=== PATIENT | male | born 1955 | race Caucasian/White ===

== ENCOUNTER 2019-03-30 17:30 | Observation (INO) | payer MEDICARE ==
[2019-03-30] MEDS ORDERED: Sodium Chloride 0.9% 10 ML Syringe FLUSH PRN (17:40)
[2019-03-30 18:07] LABS: CHLORIDE,CL 99 mmol/L (98-107); SODIUM,NA 135 mmol/L (136-145)
--- NOTE | 2019-03-30 18:28 | EDM.PDOC ---
ED HPI GENERAL MEDICAL PROBLEM - General Chief Complaint: General Stated Complaint: dizziness, constipation Time Seen by Provider: 03/30/19 17:45 Source of Information: Reports: Patient, Family History Limitations: Reports: Altered Mental Status - History of Present Illness INITIAL COMMENTS - FREE TEXT/NARRATIVE: Patient is a 64-year-old who was brought to the ER by ex- secondary to significant weight loss in the last month increased confusion and just not feeling well was seen in [place] [facility] diagnosed with diverticulitis started on antibiotic and sent home patient now feels increased weakness with dizziness and confusion Onset: Sudden Duration: Week(s):, Getting Worse Quality: Reports: Ache Severity: Mild Improves with: Reports: None (`) Worsens with: Reports: Movement (Not eating well) Associated Symptoms: Reports: Confusion, Loss of Appetite, Nausea/Vomiting, Weakness Treatments LINES TENDER: Reports: Acetaminophen, NSAIDS - Related Data Allergies Allergy/AdvReac Type Severity Reaction Status Date / Time No Known Allergies Allergy Verified 03/30/19 17:42 Home Meds: Home Meds Acetaminophen [Tylenol Extra Strength] 3 tab PO 1200 PRN 03/30/19 [History] Albuterol/Ipratropium [DuoNeb 3.0-0.5 MG/3 ML] 3 ml INH DAILY 03/30/19 [History] Atenolol 50 mg PO DAILY 03/30/19 [History] Ciprofloxacin HCl [Cipro] 1 tab PO BID 03/30/19 [History] Finasteride 5 mg PO DAILY 03/30/19 [History] Fluticasone/Salmeterol [Advair 250-50 Diskus] 1 inh INH BID 03/30/19 [History] Ibuprofen 3 tab PO DAILY 03/30/19 [History] Lisinopril/Hydrochlorothiazide [Lisinopril-Hctz 20-25 mg Tab] 1 tab PO DAILY 09/07 [History] Tamsulosin HCl 1 cap PO BEDTIME 03/30/19 [History] atorvaSTATin [Lipitor] 1 tab PO BEDTIME 03/30/19 [History] metroNIDAZOLE [Flagyl] 1 tab PO TID 03/30/19 [History] Social & Family History - Tobacco Use Smoking Status *Q: Current Every Day Smoker Years of Tobacco use: 50 Packs/Tins Daily: 1.5 - Caffeine Use Caffeine Use: Reports: Coffee ED ROS GENERAL - Review of Systems Review Of Systems: See Below Constitutional: Reports: Chills, Weakness, Decreased Appetite, Weight Loss HEENT: Reports: No Symptoms Respiratory: Reports: Shortness of Breath Cardiovascular: Reports: Blood Pressure Problem (Hypertension) Endocrine: Reports: No Symptoms GI/Abdominal: Reports: Abdominal Pain, Constipation, Decreased Appetite, Distension Musculoskeletal: Reports: Back Pain Skin: Reports: No Symptoms Neurological: Reports: Confusion Hematologic/Lymphatic: Reports: No Symptoms Immunologic: Reports: No Symptoms ED EXAM, GENERAL - Physical Exam Exam: See Below Exam Limited By: Altered Mental Status (As per family) General Appearance: Alert, No Apparent Distress, Thin, Cachetic Ears: Normal External Exam, Normal Canal, Normal TMs, Hearing Loss Nose: Normal Inspection, Normal Mucosa, No Blood Throat/Mouth: Normal Inspection, Normal Lips, Normal Teeth, Normal Gums, Normal Oropharynx, Normal Voice, No Airway Compromise Head: Atraumatic, Normocephalic Neck: Normal Inspection, Supple, Non-Tender, Full Range of Motion Respiratory/Chest: Lungs Clear, Prolonged Expiration Cardiovascular: Normal Peripheral Pulses, Regular Rate, Rhythm, No Edema, No Gallop, No JVD, No Murmur, No Rub GI/Abdominal: Soft, Tender. No: Guarding, Rigid, Rebound (Male) Exam: Deferred Rectal (Males) Exam: Normal Exam, Normal Rectal Tone, Prostate Normal. No: Fecal Impaction, Heme + Stool, Hemorrhoids, Mass, Perirectal Abscess, Prostate Nodule, Rectal Fissure Back Exam: Normal Inspection, Full Range of Motion, NT Extremities: Normal Inspection, Normal Range of Motion, Non-Tender, Normal Capillary Refill, No Pedal Edema Course - Vital Signs Last Recorded V/S: Last Vital Signs Temp 98.5 F 03/31/19 08:00 Pulse 95 03/31/19 08:00 Resp 17 03/31/19 08:00 BP 128/68 03/31/19 08:00 Pulse Ox 95 03/31/19 08:00 - Orders/Labs/Meds Orders: Active Orders 24 hr Category Date Time Status Abdomen 1V Flat [CR] Stat Exams 03/30/19 20:55 Taken Abdomen 2V AP Flat Upright [CR] Stat Exams 03/30/19 17:57 Taken Abdomen Pelvis w Cont [CT] Stat Exams 03/30/19 18:01 Stop Req Sodium Chloride 0.9% [Saline Flush] Med 03/30/19 17:40 Active 10 ml FLUSH ASDIRECTED PRN Saline Lock Insert [OM.PC] Routine Oth 03/30/19 17:40 Ordered Medication Orders Albuterol/Ipratropium (Duoneb 3.0-0.5 Mg/3 Ml) 3 ml NEB DAILY [facility] Last Admin: 03/31/19 07:45 Dose: 3 ml Ciprofloxacin (Ciprofloxacin Hcl) 500 mg PO BID [facility] Last Admin: 03/31/19 07:44 Dose: 500 mg Sodium Chloride (Normal Saline) 1,000 mls @ 100 mls/hr IV ASDIRECTED [facility] Last Admin: 03/31/19 01:43 Dose: 100 mls/hr Metronidazole (Flagyl) 500 mg PO TID [facility] Last Admin: 03/31/19 07:44 Dose: 500 mg Sodium Chloride (Saline Flush) 10 ml FLUSH ASDIRECTED PRN PRN Reason: Keep Vein Open Last Admin: 03/30/19 18:55 Dose: 10 ml Labs: Laboratory Tests 03/30/19 03/30/19 03/30/19 Range/Units 17:50 17:52 17:52 WBC 13.5 H (4.0-10.2) K/uL RBC 4.14 L (4.33-5.41) M/uL Hgb 12.7 L (13.1-16.8) g/dL Hct 36.0 L (39.0-49.0) % MCV 87.0 (84.0-98.0) fL MCH 30.7 (28.2-33.3) pg MCHC 35.3 (31.7-36.0) g/dL RDW 12.1 (11.2-14.1) % Plt Count 382 H (150-350) K/uL Neut % (Auto) 70.3 (45.0-80.0) % Lymph % (Auto) 17.7 (10.0-50.0) % [place] % (Auto) 11.1 (2.0-14.0) % Eos % (Auto) 0.8 (0.0-5.0) % Baso % (Auto) 0.1 (0.0-2.0) % Neut # (Auto) 9.47 H (1.40-7.00) K/uL Lymph # (Auto) 2.38 (0.50-3.50) K/uL [place] # (Auto) 1.49 H (0.00-1.00) K/uL Eos # (Auto) 0.11 (0.00-0.50) K/uL Baso # (Auto) 0.02 (0.00-0.20) K/uL Sodium 135 L (136-145) mmol/L Potassium 2.4 L* (3.5-5.1) mmol/L Chloride 99 (98-107) mmol/L Carbon Dioxide 21.7 (21.0-32.0) mmol/L BUN 43 H (7-18) mg/dL Creatinine 1.56 H (0.51-1.17) mg/dL Est Cr Clr Drug Dosing TNP Estimated GFR (MDRD) 45 mL/min Glucose 165 H (74-106) mg/dL Calcium 8.7 (8.5-10.1) mg/dL Total Bilirubin 0.3 (0.2-1.0) mg/dL AST 28 (15-37) U/L ALT 37 (12-78) U/L Alkaline Phosphatase 53 (46-116) IU/L Total Protein 6.9 (6.4-8.2) g/dL Albumin 2.4 L (3.4-5.0) g/dL Amylase 50 (25-115) U/L Lipase 290 (73-393) U/L Meds: Medications Generic Name Dose Route Start Last Admin Trade Name Freq PRN Reason Stop Dose Admin Albuterol/Ipratropium 3 ml 03/31/19 08:00 03/31/19 07:45 Duoneb 3.0-0.5 Mg/3 Ml NEB 3 ml DAILY MIRIAM Administration Ciprofloxacin 500 mg 03/31/19 08:00 03/31/19 07:44 Ciprofloxacin Hcl PO 500 mg BID MIRIAM Administration Sodium Chloride 1,000 mls @ 100 mls/hr 03/31/19 01:00 03/31/19 01:43 Normal Saline IV 100 mls/hr ASDIRECTED MIRIAM Administration Metronidazole 500 mg 03/31/19 08:00 03/31/19 07:44 Flagyl PO 500 mg TID MIRIAM Administration Sodium Chloride 10 ml 03/30/19 17:40 03/30/19 18:55 Saline Flush FLUSH 10 ml ASDIRECTED PRN Administration Keep Vein Open Discontinued Medications Generic Name Dose Route Start Last Admin Trade Name Iveth PRN Reason Stop Dose Admin Potassium Chloride/Sodium Chloride 1,000 mls @ 250 mls/hr 03/30/19 18:45 09/07 18:49 Normal Saline With 20 Meq Kcl IV 250 mls/hr ASDIRECTED MIRIAM Administration Potassium Chloride 10 meq/ 50 mls @ 50 mls/hr 03/31/19 00:45 03/31/19 04:53 Premix IV 03/31/19 04:44 50 mls/hr Q1H MIRIAM Administration Iopamidol 100 ml 03/30/19 19:00 03/31/19 02:03 Isovue-300 (61%) IVPUSH 03/30/19 19:01 Not Given ONETIME ONE Potassium Chloride 20 meq 03/30/19 22:04 03/30/19 22:09 Potassium Chloride Solution PO 03/30/19 22:05 20 meq ONETIME ONE Administration Departure - Departure Time of Disposition: 21:30 Disposition: Refer to Observation Clinical Impression: Hypokalemia, Dehydration, Elevated glucose level, Abdominal pain, Diverticulitis - Discharge Information *PRESCRIPTION DRUG MONITORING PROGRAM REVIEWED*: Not Applicable *COPY OF PRESCRIPTION DRUG MONITORING REPORT IN PATIENT JOSSE: Not Applicable - Problem List & Annotations (1) Renal insufficiency SNOMED Code(s): 604300634, 849689598 Code(s): N28.9 - DISORDER OF KIDNEY AND URETER, UNSPECIFIED Status: Acute Current Visit: Yes Annotation/Comment:: elevated creatinine and hypokalemia will admit to correct fluids and electrolytes (2) Dehydration SNOMED Code(s): 00663242 Code(s): E86.0 - DEHYDRATION Status: Acute Current Visit: Yes Annotation/Comment:: Will admit and give fluids IV - Problem List Review Problem List Initiated/Reviewed/Updated: Yes - My Orders Last 24 Hours: My Active Orders 03/30/19 17:40 Sodium Chloride 0.9% [Saline Flush] 10 ml FLUSH ASDIRECTED PRN Saline Lock Insert [OM.PC] Routine 03/30/19 17:57 Abdomen 2V AP Flat Upright [CR] Stat 03/30/19 18:01 Abdomen Pelvis w Cont [CT] Stat 03/30/19 20:55 Abdomen 1V Flat [CR] Stat - Assessment/Plan Admission H&P: Please use this note as an admission H&P Last 24 Hours: My Active Orders 03/30/19 17:40 Sodium Chloride 0.9% [Saline Flush] 10 ml FLUSH ASDIRECTED PRN Saline Lock Insert [OM.PC] Routine 03/30/19 17:57 Abdomen 2V AP Flat Upright [CR] Stat 03/30/19 18:01 Abdomen Pelvis w Cont [CT] Stat 03/30/19 20:55 Abdomen 1V Flat [CR] Stat Plan: Will admit patient to observation to correct electrolytes and hydration. Patient is stable for general observation.
[2019-03-30] MEDS ORDERED: NS + KCl 20mEq/L 1,000 ML IV SCH (18:45)
[2019-03-30] MEDS ORDERED: Iopamidol 612 MG/ML 100 ML Bottle IVPUSH ONE (19:00)
[2019-03-30] MEDS ORDERED: Potassium Chloride 10% 20 MEQ/15 ML Soln 15 ML UD Cup PO ONE (22:04)
[2019-03-30 23:48] LABS: CHLORIDE,CL 102 mmol/L (98-107); SODIUM,NA 137 mmol/L (136-145)
[2019-03-31] MEDS ORDERED: Sodium Chloride 0.9% 1,000 ML IV SCH (01:00)
[2019-03-31] MEDS: Potassium Chloride 10 MEQ in Premix Bag 1 BAG IV SCH ×4 (01:43→04:53)
[2019-03-31] MEDS: metroNIDAZOLE 500 MG Tab PO SCH ×2 (07:44→11:43)
[2019-03-31] MEDS ORDERED: Albuterol/Ipratropium 3.0-0.5 MG/3 ML Neb Soln NEB SCH (08:00)
[2019-03-31] MEDS ORDERED: Ciprofloxacin 500 MG Tab PO SCH (08:00)
[2019-03-31 08:16] LABS: CHLORIDE,CL 106 mmol/L (98-107); SODIUM,NA 140 mmol/L (136-145)
--- NOTE | 2019-03-31 09:34 | PCM.PN ---
- General Info Date of Service: 03/31/19 - Review of Systems General: Reports: Weakness (improving ), Fatigue (improving) HEENT: Reports: No Symptoms Pulmonary: Reports: No Symptoms Cardiovascular: Reports: No Symptoms Gastrointestinal: Reports: Abdominal Pain (improving), Flatus (reports passing gas) Genitourinary: Reports: No Symptoms Musculoskeletal: Reports: No Symptoms Skin: Reports: No Symptoms Neurological: Reports: No Symptoms Psychiatric: Reports: No Symptoms - Patient Data Vitals - Most Recent: Last Vital Signs Temp 98.5 F 03/31/19 08:00 Pulse 95 03/31/19 08:00 Resp 17 03/31/19 08:00 BP 128/68 03/31/19 08:00 Pulse Ox 95 03/31/19 08:00 Weight - Most Recent: 150 lb I&O - Last 24 Hours: Intake & Output 03/30/19 03/31/19 03/31/19 22:59 06:59 14:59 Intake Total 1513 Output Total 300 Balance 1213 Lab Results Last 24 Hours: Laboratory Results - last 24 hr 03/30/19 03/30/19 03/30/19 Range/Units 17:50 17:52 17:52 WBC 13.5 H (4.0-10.2) K/uL RBC 4.14 L (4.33-5.41) M/uL Hgb 12.7 L (13.1-16.8) g/dL Hct 36.0 L (39.0-49.0) % MCV 87.0 (84.0-98.0) fL MCH 30.7 (28.2-33.3) pg MCHC 35.3 (31.7-36.0) g/dL RDW 12.1 (11.2-14.1) % Plt Count 382 H (150-350) K/uL Neut % (Auto) 70.3 (45.0-80.0) % Lymph % (Auto) 17.7 (10.0-50.0) % [place] % (Auto) 11.1 (2.0-14.0) % Eos % (Auto) 0.8 (0.0-5.0) % Baso % (Auto) 0.1 (0.0-2.0) % Neut # (Auto) 9.47 H (1.40-7.00) K/uL Lymph # (Auto) 2.38 (0.50-3.50) K/uL [place] # (Auto) 1.49 H (0.00-1.00) K/uL Eos # (Auto) 0.11 (0.00-0.50) K/uL Baso # (Auto) 0.02 (0.00-0.20) K/uL Sodium 135 L (136-145) mmol/L Potassium 2.4 L* (3.5-5.1) mmol/L Chloride 99 (98-107) mmol/L Carbon Dioxide 21.7 (21.0-32.0) mmol/L BUN 43 H (7-18) mg/dL Creatinine 1.56 H (0.51-1.17) mg/dL Est Cr Clr Drug Dosing TNP Estimated GFR (MDRD) 45 mL/min Glucose 165 H (74-106) mg/dL Calcium 8.7 (8.5-10.1) mg/dL Total Bilirubin 0.3 (0.2-1.0) mg/dL AST 28 (15-37) U/L ALT 37 (12-78) U/L Alkaline Phosphatase 53 (46-116) IU/L Total Protein 6.9 (6.4-8.2) g/dL Albumin 2.4 L (3.4-5.0) g/dL Amylase 50 (25-115) U/L Lipase 290 (73-393) U/L 03/30/19 03/31/19 03/31/19 Range/Units 23:30 07:10 07:10 WBC 9.5 (4.0-10.2) K/uL RBC 3.86 L (4.33-5.41) M/uL Hgb 11.8 L (13.1-16.8) g/dL Hct 34.0 L (39.0-49.0) % MCV 88.1 (84.0-98.0) fL MCH 30.6 (28.2-33.3) pg MCHC 34.7 (31.7-36.0) g/dL RDW 12.1 (11.2-14.1) % Plt Count 376 H (150-350) K/uL Neut % (Auto) 60.3 (45.0-80.0) % Lymph % (Auto) 26.5 (10.0-50.0) % [place] % (Auto) 11.9 (2.0-14.0) % Eos % (Auto) 1.1 (0.0-5.0) % Baso % (Auto) 0.2 (0.0-2.0) % Neut # (Auto) 5.75 (1.40-7.00) K/uL Lymph # (Auto) 2.52 (0.50-3.50) K/uL [place] # (Auto) 1.13 H (0.00-1.00) K/uL Eos # (Auto) 0.10 (0.00-0.50) K/uL Baso # (Auto) 0.02 (0.00-0.20) K/uL Sodium 137 140 (136-145) mmol/L Potassium 2.8 L* 3.0 L (3.5-5.1) mmol/L Chloride 102 106 (98-107) mmol/L Carbon Dioxide 21.2 21.3 (21.0-32.0) mmol/L BUN 35 H 25 H (7-18) mg/dL Creatinine 1.16 0.91 (0.51-1.17) mg/dL Est Cr Clr Drug Dosing 60.28 76.84 Estimated GFR (MDRD) > 60 > 60 mL/min Glucose 134 H 107 H (74-106) mg/dL Calcium 8.8 8.5 (8.5-10.1) mg/dL Total Bilirubin (0.2-1.0) mg/dL AST (15-37) U/L ALT (12-78) U/L Alkaline Phosphatase (46-116) IU/L Total Protein (6.4-8.2) g/dL Albumin (3.4-5.0) g/dL Amylase (25-115) U/L Lipase (73-393) U/L [place] Results Last 24 Hours: Microbiology 03/30/19 18:04 Occult Blood - Final Stool / Feces Med Orders - Current: Current Medications Albuterol/Ipratropium (Duoneb 3.0-0.5 Mg/3 Ml) 3 ml NEB DAILY [facility] Last Admin: 03/31/19 07:45 Dose: 3 ml Ciprofloxacin (Ciprofloxacin Hcl) 500 mg PO BID [facility] Last Admin: 03/31/19 07:44 Dose: 500 mg Sodium Chloride (Normal Saline) 1,000 mls @ 100 mls/hr IV ASDIRECTED [facility] Last Admin: 03/31/19 01:43 Dose: 100 mls/hr Metronidazole (Flagyl) 500 mg PO TID [facility] Last Admin: 03/31/19 07:44 Dose: 500 mg Sodium Chloride (Saline Flush) 10 ml FLUSH ASDIRECTED PRN PRN Reason: Keep Vein Open Last Admin: 03/30/19 18:55 Dose: 10 ml Discontinued Medications Potassium Chloride/Sodium Chloride (Normal Saline With 20 Meq Kcl) 1,000 mls @ 250 mls/hr IV ASDIRECTED [facility] Last Admin: 03/30/19 18:49 Dose: 250 mls/hr Potassium Chloride 10 meq/ (Premix) 50 mls @ 50 mls/hr IV Q1H [facility] Stop: 03/31/19 04:44 Last Admin: 03/31/19 04:53 Dose: 50 mls/hr Iopamidol (Isovue-300 (61%)) 100 ml IVPUSH ONETIME ONE Stop: 03/30/19 19:01 Last Admin: 03/31/19 02:03 Dose: Not Given Potassium Chloride (Potassium Chloride Solution) 20 meq PO ONETIME ONE Stop: 03/30/19 22:05 Last Admin: 03/30/19 22:09 Dose: 20 meq - Exam General: Alert, Oriented HEENT: Pupils Equal, Pupils Reactive, EOMI, Mucous Membr. Moist/Connell Neck: Supple Lungs: Clear to Auscultation, Normal Respiratory Effort Cardiovascular: Regular Rate, Regular Rhythm GI/Abdominal Exam: Normal Bowel Sounds, Soft, Non-Tender, No Organomegaly, No Distention, No Abnormal Bruit, No Mass, Pelvis Stable (Male) Exam: Deferred Back Exam: Normal Inspection, Full Range of Motion Extremities: Normal Inspection, Normal Range of Motion, Non-Tender, No Pedal Edema, Normal Capillary Refill Skin: Warm, Dry, Intact Neurological: No New Focal Deficit Psy/Mental Status: Alert, Normal Affect, Normal Mood - Problem List & Annotations (1) Renal insufficiency SNOMED Code(s): 098458436, 566250426 Code(s): N28.9 - DISORDER OF KIDNEY AND URETER, UNSPECIFIED Status: Acute Current Visit: Yes Annotation/Comment:: Continue correction of electrolytes. Will continue to monitor. (2) Dehydration SNOMED Code(s): 23290344 Code(s): E86.0 - DEHYDRATION Status: Acute Current Visit: Yes Annotation/Comment:: Will admit and give fluids IV (3) Diverticulitis SNOMED Code(s): 861866532 Code(s): K57.92 - DVTRCLI OF INTEST, PART UNSP, W/O PERF OR ABSCESS W/O BLEED Status: Acute Current Visit: Yes Annotation/Comment:: continue antibiotics. (4) Elevated glucose level SNOMED Code(s): 44659491 Code(s): R73.09 - OTHER ABNORMAL GLUCOSE Status: Acute Current Visit: Yes (5) Hypokalemia SNOMED Code(s): 22391600 Code(s): E87.6 - HYPOKALEMIA Status: Acute Current Visit: Yes Annotation/Comment:: will continue to correct. - Problem List Review Problem List Initiated/Reviewed/Updated: Yes - My Orders Last 24 Hours: My Active Orders 03/30/19 17:40 Sodium Chloride 0.9% [Saline Flush] 10 ml FLUSH ASDIRECTED PRN Saline Lock Insert [OM.PC] Routine 03/30/19 17:57 Abdomen 2V AP Flat Upright [CR] Stat 03/30/19 18:01 Abdomen Pelvis w Cont [CT] Stat 03/30/19 20:55 Abdomen 1V Flat [CR] Stat 03/30/19 21:30 Patient Status [ADT] Routine 03/31/19 00:53 Vital Signs [RC] Q4HR 03/31/19 01:00 Sodium Chloride 0.9% [Normal Saline] 1,000 ml IV ASDIRECTED 03/31/19 01:10 Resuscitation Status Routine 03/31/19 01:22 Activity as Tolerated [RC] .Routine 03/31/19 01:28 RT Aerosol Therapy [RC] ASDIRECTED 03/31/19 08:00 Albuterol/Ipratropium [DuoNeb 3.0-0.5 MG/3 ML] 3 ml NEB DAILY Ciprofloxacin [Ciprofloxacin HCl] 500 mg PO BID metroNIDAZOLE [Flagyl] 500 mg PO TID 03/31/19 Breakfast Nothing per Oral Now Diet [DIET] - Plan Plan:: continue electrolyte replacement and dehydration correction. Will continue antibiotics. Patient reporting improvement.
--- OUTSIDE RECORDS SUMMARY | 2019-03-31 09:36 | XMSREPORT | Referral Summary ---
:1955 Author Organization [facility] Address [address] [place] [address] Care Team Providers Name Role Phone Tamia Saleh PA-C Attributed Provider Tamia Saleh PA-C Primary Care Provider Reason for Referral Transitions of Care (Routine) Status Reason Specialty Diagnoses / Referred By Referred To Procedures Contact Contact New Request Patient Diagnoses History of diverticulitis Screen for colon cancer Change in bowel habits Tamia Saleh, Health, [facility] [employer] [facility] [place], [address] [place] [phone] Phone: Fax: Encounter Details Date Type Department Care Team Description 03/26/[address] [facility] [address] [place] [address] [place] [address] [phone] Allergies No Known Allergiesdocumented as of this encounter (statuses as of 03/29/2019) Medications Medication Sig Dispensed Refills Start Date End Date Status atenolol (TENORMIN) Take 1 tablet (50 90 tablet 3 07/22/2018 Active 50 mg mg) by mouth 1 tabletIndications: time per day Essential hypertension fluticasone-salmeter Inhale 1 puff 3 Inhaler 3 07/22/2018 07/27/2019 Active ol (ADVAIR DISKUS) orally 2 times a 250-50 mcg/dose day Rinse mouth discusIndications: after use. Simple chronic bronchitis (HCC) indomethacin Take one capsule 30 capsule 0 07/22/2018 Active (INDOCIN) 50 mg up to three times capsuleIndications: daily with food H/O acute gouty for gout flare up. arthritis Decrease dose as pain subsides. lisinopril-hydroCHLO Take 1 tablet by 90 tablet 3 07/22/2018 Active ROthiazide mouth 1 time per (PRINZIDE, day ZESTORETIC) 20-25 mg tabletIndications: Essential hypertension tamsulosin (FLOMAX) Take 1 capsule 90 capsule 3 07/22/2018 Active 0.4 mg (0.4 mg) by mouth capsuleIndications: every night at Benign prostatic bedtime hyperplasia with urinary obstruction albuterol-ipratropiu INHALE 1 UNIT-DOSE 180 mL 1 01/12/2019 04/12/2019 Active m (DUO-NEB) 2.5-0.5 (3 ML) BY mg/3 mL inhalation NEBULIZATION EVERY solutionIndications: 12 HOURS NEEDED Chronic obstructive FOR BRONCHOSPASM, pulmonary disease, SHORTNESS OF unspecified COPD BREATH OR WHEEZING type (HCC) rosuvastatin Take 10 mg by 0 Active (CRESTOR) 10 mg mouth every night tablet at bedtime ibuprofen Take 600 mg by 0 Active (ADVIL;MOTRIN-IB) mouth Every 4 200 mg tablet hours as needed finasteride TAKE 1 TABLET (5 90 tablet 2 03/17/2019 Active (PROSCAR) 5 MG MG) BY MOUTH 1 tabletIndications: TIME PER DAY Benign prostatic hyperplasia with urinary obstruction metroNIDAZOLE Take 1 tablet (500 30 tablet 0 03/24/2019 Active (FLAGYL) 500 mg mg) by mouth 3 tabletIndications: times a day Acute diverticulitis of intestine ciprofloxacin Take 1 tablet (500 20 tablet 0 03/24/2019 Active (CIPRO) 500 mg mg) by mouth 2 tabletIndications: times a day Acute diverticulitis of intestine oxyCODONE (OXY-IR) 5 Take 1 tablet (5 12 tablet 0 03/24/2019 Active mg tablet (immediate mg) by mouth every release)Indications: 6 hours as needed Acute diverticulitis for severe pain of intestine ondansetron (ZOFRAN Take 1 tablet (4 8 tablet 0 03/24/2019 Active ODT) 4 mg mg) by mouth Every dispersible 4 hours as needed tabletIndications: for nausea or Acute diverticulitis vomiting of intestine documented as of this encounter (statuses as of 03/29/2019) Active Problems Problem Noted Date Impaired fasting glucose 07/21/2018 Excessive drinking of alcohol 07/21/2018 Cigarette smoker 07/21/2018 BPH (benign prostatic hyperplasia) 07/07/2015 Idiopathic gout of multiple sites 10/01/2014 COPD (chronic obstructive pulmonary disease) 02/20/2007 Tobacco use disorder 02/20/2007 Pure hypercholesterolemia 07/21/2003 Essential hypertension 07/21/2003 documented as of this encounter (statuses as of 03/29/2019) Resolved Problems Problem Noted Date Resolved Date Bact Pleur/Effus not TB 02/20/2007 10/01/2014 documented as of this encounter (statuses as of 03/29/2019) Immunizations Name Dates Previously Given Next Due FLU VACCINE HIGH DOSE 65YR+ 07/21/2018 Pneumococcal Conj PCV13 07/21/2018 documented as of this encounter Social History Tobacco Use Types Packs/Day Years Used Date Current Every Day Smoker Cigarettes 2 Smokeless Tobacco: Never Used Alcohol Use Drinks/Week oz/Week Comments Yes 20 Cans of beer 12.0 Sex Assigned at Date Recorded Not on file Job Start Date Occupation Industry Not on file Not on file Not on file Travel History Travel Start Travel End No recent travel history available. documented as of this encounter Functional Status Functional Status Response Date of Assessment Is the person deaf or does he/she have serious difficulty No 02/22/2019 hearing? Is this person blind or does he/she have difficulty No 02/22/2019 seeing even when wearing glasses? Do you have difficulty with walking, balance, climbing No 02/22/2019 stairs, or had a fall in the last 3 months? documented as of this encounter Plan of Treatment Date Type Specialty Care Team Description 03/31/2019 Office Visit Family Practice Tamia Saleh, PAHarinder [address] [place] [id number] 04/12/2019 Office Visit Orthopedics Rafiq Peace MD [address] [place] [address] [phone] Name Priority Associated Diagnoses Order Schedule CLINIC REFERRAL ENDOSCOPY Routine History of diverticulitis Ordered: 03/29/2019 NON ONE CHART Screen for colon cancer Change in bowel habits documented as of this encounter Implants Implanted Type Area Bowling Ball Grader And Marker Device Shelf Model / Identifier Expiration Date Serial / Lot Wrist Taper Post 7.5x16mm N [id number] Ea1 - Sn/A Right: ARTHROSURFACE 06/04/2023 [id number] / Implanted: Qty: 1 on 03/01/2019 by Rafiq Peace MD WRIST N/A / [id number] Wrist Capitate 15mm [id number] N [id number] Ea1 - Sn/A Right: ARTHROSURFACE 06/08/2023 [id number] / Implanted: Qty: 1 on 03/01/2019 by aRfiq Peace MD WRIST N/A / [id number] documented as of this encounter Visit Diagnoses Diagnosis History of diverticulitis - Primary Screen for colon cancer Special screening for malignant neoplasms, colon Change in bowel habits Other symptoms involving digestive system documented in this encounter
[2019-03-31] MEDS ORDERED: Potassium Chloride 20 MEQ Tab.ER PO SCH (10:00)
[2019-03-31 16:04] VITALS: BP 148/75
[2019-03-31 16:39] LABS: CHLORIDE,CL 106 mmol/L (98-107); SODIUM,NA 141 mmol/L (136-145)
[2019-03-31] MEDS ORDERED: Potassium Chloride 20 MEQ Tab.ER PO ONE (17:11)
--- NOTE | 2019-03-31 17:26 | PCM.DCSUM1 ---
Discharge Summary - Hospital Course Diagnosis: Stroke: No - Discharge Data Discharge Date: 03/31/19 Discharge Disposition: Home, Self-Care 01 Condition: Good - Discharge Diagnosis/Problem(s) (1) Renal insufficiency SNOMED Code(s): 852675705, 028452092 ICD Code: N28.9 - DISORDER OF KIDNEY AND URETER, UNSPECIFIED Status: Acute Current Visit: Yes Problem Details: Patient feeling much better less confused appears hydrated but still hypokalemic we checked his potassium 2.7 now I will send him home KCl 20 mEq 4 times a day he is to have a recheck of his potassium on Friday. Reports to information technology architect provider (2) Dehydration SNOMED Code(s): 58438032 ICD Code: E86.0 - DEHYDRATION Status: Acute Current Visit: Yes Problem Details: Patient rehydrated IV disconnected (3) Diverticulitis SNOMED Code(s): 279715274 ICD Code: K57.92 - DVTRCLI OF INTEST, PART UNSP, W/O PERF OR ABSCESS W/O BLEED Status: Acute Current Visit: Yes Problem Details: Patient is to continue antibiotics till finished wBC within normal limits (4) Elevated glucose level SNOMED Code(s): 63916002 ICD Code: R73.09 - OTHER ABNORMAL GLUCOSE Status: Acute Current Visit: Yes (5) Hypokalemia SNOMED Code(s): 09244743 ICD Code: E87.6 - HYPOKALEMIA Status: Acute Current Visit: Yes Problem Details: will continue to correct. - Discharge Plan *PRESCRIPTION DRUG MONITORING PROGRAM REVIEWED*: Not Applicable *COPY OF PRESCRIPTION DRUG MONITORING REPORT IN PATIENT JOSSE: Not Applicable Prescriptions/Med Rec: Potassium Chloride 40 meq PO QID 30 Days #120 tablet.er Home Medications: Home Meds Acetaminophen [Tylenol Extra Strength] 3 tab PO 1200 PRN 03/30/19 [History] Albuterol/Ipratropium [DuoNeb 3.0-0.5 MG/3 ML] 3 ml INH DAILY 03/30/19 [History] Atenolol 50 mg PO DAILY 03/30/19 [History] Ciprofloxacin HCl [Cipro] 1 tab PO BID 03/30/19 [History] Finasteride 5 mg PO DAILY 03/30/19 [History] Fluticasone/Salmeterol [Advair 250-50 Diskus] 1 inh INH BID 03/30/19 [History] Ibuprofen 3 tab PO DAILY 03/30/19 [History] Lisinopril/Hydrochlorothiazide [Lisinopril-Hctz 20-25 mg Tab] 1 tab PO DAILY 09/07 [History] Tamsulosin HCl 1 cap PO BEDTIME 03/30/19 [History] atorvaSTATin [Lipitor] 1 tab PO BEDTIME 03/30/19 [History] metroNIDAZOLE [Flagyl] 1 tab PO TID 03/30/19 [History] Potassium Chloride 40 meq PO QID 30 Days #120 tablet.er 03/31/19 [Rx] Patient Handouts: Hypokalemia, Dehydration, Adult, [id number] Forms: ED Department Discharge Referrals: Tamia Saleh PA-C [Primary Care Provider] - - Discharge Summary/Plan Comment DC Time >30 min.: No - General Info Functional Status: Reports: Tolerating Diet, Ambulating - Review of Systems General: Reports: No Symptoms HEENT: Reports: No Symptoms Pulmonary: Reports: Shortness of Breath Cardiovascular: Reports: No Symptoms Gastrointestinal: Reports: No Symptoms, Diarrhea, Nausea Genitourinary: Reports: No Symptoms Musculoskeletal: Reports: No Symptoms Skin: Reports: No Symptoms Neurological: Reports: No Symptoms Psychiatric: Reports: No Symptoms - Patient Data Vitals - Most Recent: Last Vital Signs Temp 98.1 F 03/31/19 16:00 Pulse 101 H 03/31/19 16:00 Resp 17 03/31/19 16:00 BP 148/75 H 03/31/19 16:00 Pulse Ox 95 03/31/19 16:00 Weight - Most Recent: 150 lb I&O - Last 24 hours: Intake & Output 03/31/19 03/31/19 03/31/19 06:59 14:59 22:59 Intake Total 1513 1627 Output Total 300 500 Balance 1213 1127 Lab Results - Last 24 hrs: Laboratory Results - last 24 hr 03/30/19 03/30/19 03/30/19 Range/Units 17:50 17:52 17:52 WBC 13.5 H (4.0-10.2) K/uL RBC 4.14 L (4.33-5.41) M/uL Hgb 12.7 L (13.1-16.8) g/dL Hct 36.0 L (39.0-49.0) % MCV 87.0 (84.0-98.0) fL MCH 30.7 (28.2-33.3) pg MCHC 35.3 (31.7-36.0) g/dL RDW 12.1 (11.2-14.1) % Plt Count 382 H (150-350) K/uL Neut % (Auto) 70.3 (45.0-80.0) % Lymph % (Auto) 17.7 (10.0-50.0) % [place] % (Auto) 11.1 (2.0-14.0) % Eos % (Auto) 0.8 (0.0-5.0) % Baso % (Auto) 0.1 (0.0-2.0) % Neut # (Auto) 9.47 H (1.40-7.00) K/uL Lymph # (Auto) 2.38 (0.50-3.50) K/uL [place] # (Auto) 1.49 H (0.00-1.00) K/uL Eos # (Auto) 0.11 (0.00-0.50) K/uL Baso # (Auto) 0.02 (0.00-0.20) K/uL Sodium 135 L (136-145) mmol/L Potassium 2.4 L* (3.5-5.1) mmol/L Chloride 99 (98-107) mmol/L Carbon Dioxide 21.7 (21.0-32.0) mmol/L BUN 43 H (7-18) mg/dL Creatinine 1.56 H (0.51-1.17) mg/dL Est Cr Clr Drug Dosing TNP Estimated GFR (MDRD) 45 mL/min Glucose 165 H (74-106) mg/dL Calcium 8.7 (8.5-10.1) mg/dL Total Bilirubin 0.3 (0.2-1.0) mg/dL AST 28 (15-37) U/L ALT 37 (12-78) U/L Alkaline Phosphatase 53 (46-116) IU/L Total Protein 6.9 (6.4-8.2) g/dL Albumin 2.4 L (3.4-5.0) g/dL Amylase 50 (25-115) U/L Lipase 290 (73-393) U/L 03/30/19 03/31/19 03/31/19 Range/Units 23:30 07:10 07:10 WBC 9.5 (4.0-10.2) K/uL RBC 3.86 L (4.33-5.41) M/uL Hgb 11.8 L (13.1-16.8) g/dL Hct 34.0 L (39.0-49.0) % MCV 88.1 (84.0-98.0) fL MCH 30.6 (28.2-33.3) pg MCHC 34.7 (31.7-36.0) g/dL RDW 12.1 (11.2-14.1) % Plt Count 376 H (150-350) K/uL Neut % (Auto) 60.3 (45.0-80.0) % Lymph % (Auto) 26.5 (10.0-50.0) % [place] % (Auto) 11.9 (2.0-14.0) % Eos % (Auto) 1.1 (0.0-5.0) % Baso % (Auto) 0.2 (0.0-2.0) % Neut # (Auto) 5.75 (1.40-7.00) K/uL Lymph # (Auto) 2.52 (0.50-3.50) K/uL [place] # (Auto) 1.13 H (0.00-1.00) K/uL Eos # (Auto) 0.10 (0.00-0.50) K/uL Baso # (Auto) 0.02 (0.00-0.20) K/uL Sodium 137 140 (136-145) mmol/L Potassium 2.8 L* 3.0 L (3.5-5.1) mmol/L Chloride 102 106 (98-107) mmol/L Carbon Dioxide 21.2 21.3 (21.0-32.0) mmol/L BUN 35 H 25 H (7-18) mg/dL Creatinine 1.16 0.91 (0.51-1.17) mg/dL Est Cr Clr Drug Dosing 60.28 76.84 Estimated GFR (MDRD) > 60 > 60 mL/min Glucose 134 H 107 H (74-106) mg/dL Calcium 8.8 8.5 (8.5-10.1) mg/dL Total Bilirubin (0.2-1.0) mg/dL AST (15-37) U/L ALT (12-78) U/L Alkaline Phosphatase (46-116) IU/L Total Protein (6.4-8.2) g/dL Albumin (3.4-5.0) g/dL Amylase (25-115) U/L Lipase (73-393) U/L 03/31/19 Range/Units 16:15 WBC (4.0-10.2) K/uL RBC (4.33-5.41) M/uL Hgb (13.1-16.8) g/dL Hct (39.0-49.0) % MCV (84.0-98.0) fL MCH (28.2-33.3) pg MCHC (31.7-36.0) g/dL RDW (11.2-14.1) % Plt Count (150-350) K/uL Neut % (Auto) (45.0-80.0) % Lymph % (Auto) (10.0-50.0) % [place] % (Auto) (2.0-14.0) % Eos % (Auto) (0.0-5.0) % Baso % (Auto) (0.0-2.0) % Neut # (Auto) (1.40-7.00) K/uL Lymph # (Auto) (0.50-3.50) K/uL [place] # (Auto) (0.00-1.00) K/uL Eos # (Auto) (0.00-0.50) K/uL Baso # (Auto) (0.00-0.20) K/uL Sodium 141 (136-145) mmol/L Potassium 2.7 L* (3.5-5.1) mmol/L Chloride 106 (98-107) mmol/L Carbon Dioxide 21.0 (21.0-32.0) mmol/L BUN 18 (7-18) mg/dL Creatinine 0.79 (0.51-1.17) mg/dL Est Cr Clr Drug Dosing 88.52 Estimated GFR (MDRD) > 60 mL/min Glucose 102 (74-106) mg/dL Calcium 8.4 L (8.5-10.1) mg/dL Total Bilirubin (0.2-1.0) mg/dL AST (15-37) U/L ALT (12-78) U/L Alkaline Phosphatase (46-116) IU/L Total Protein (6.4-8.2) g/dL Albumin (3.4-5.0) g/dL Amylase (25-115) U/L Lipase (73-393) U/L [place] Results - Last 24 hrs: Microbiology 03/30/19 18:04 Occult Blood - Final Stool / Feces Med Orders - Current: Current Medications Albuterol/Ipratropium (Duoneb 3.0-0.5 Mg/3 Ml) 3 ml NEB DAILY [facility] Last Admin: 03/31/19 07:45 Dose: 3 ml Ciprofloxacin (Ciprofloxacin Hcl) 500 mg PO BID [facility] Last Admin: 03/31/19 07:44 Dose: 500 mg Metronidazole (Flagyl) 500 mg PO TID [facility] Last Admin: 03/31/19 11:43 Dose: 500 mg Potassium Chloride (Klor-Con M20) 20 meq PO BID [facility] Last Admin: 03/31/19 10:09 Dose: 20 meq Sodium Chloride (Saline Flush) 10 ml FLUSH ASDIRECTED PRN PRN Reason: Keep Vein Open Last Admin: 03/30/19 18:55 Dose: 10 ml Discontinued Medications Potassium Chloride/Sodium Chloride (Normal Saline With 20 Meq Kcl) 1,000 mls @ 250 mls/hr IV ASDIRECTED [facility] Last Admin: 03/30/19 18:49 Dose: 250 mls/hr Potassium Chloride 10 meq/ (Premix) 50 mls @ 50 mls/hr IV Q1H [facility]IR[facility] Stop: 03/31/19 04:44 Last Admin: 03/31/19 04:53 Dose: 50 mls/hr Sodium Chloride (Normal Saline) 1,000 mls @ 100 mls/hr IV ASDIRECTED [facility] Last Infusion: 03/31/19 12:45 Dose: Infused Iopamidol (Isovue-300 (61%)) 100 ml IVPUSH ONETIME ONE Stop: 03/30/19 19:01 Last Admin: 03/31/19 02:03 Dose: Not Given Potassium Chloride (Potassium Chloride Solution) 20 meq PO ONETIME ONE Stop: 03/30/19 22:05 Last Admin: 03/30/19 22:09 Dose: 20 meq Potassium Chloride (Klor-Con M20) 40 meq PO ONETIME ONE Stop: 03/31/19 17:12 - Exam General: Reports: Alert, Oriented HEENT: Reports: Pupils Equal, Pupils Reactive, EOMI, Mucous Membr. Moist/[place] Neck: Reports: Supple Lungs: Reports: Clear to Auscultation, Normal Respiratory Effort Cardiovascular: Reports: Regular Rate, Regular Rhythm GI/Abdominal Exam: Normal Bowel Sounds, Soft, Non-Tender, No Organomegaly, No Distention, No Abnormal Bruit, No Mass, Pelvis Stable (Male) Exam: No Hernia, Normal Inspection, Normal Prostate, Circumcised Rectal (Males) Exam: Normal Exam, Normal Rectal Tone, Prostate Normal Back Exam: Reports: Normal Inspection, Full Range of Motion Extremities: Normal Inspection, Normal Range of Motion, Non-Tender, No Pedal Edema, Normal Capillary Refill Skin: Reports: Warm, Dry, Intact
== END 2019-03-31 18:20 | disposition home or self-care (01) ==
LOC: LL.ED 17:30 → LL.MS 21:30 → UNDOADMOB 21:30
PROVIDERS: ADMIT Family Medicine; ATTEND Family Medicine
DX: E86.0 Dehydration (principal); N28.9 Disorder of kidney and ureter, unspecified; K57.92 Diverticulitis of intestine, part unspecified, without perforation or abscess without bleeding; R73.09 Other abnormal glucose; E87.6 Hypokalemia; F17.210 Nicotine dependence, cigarettes, uncomplicated
CPT/HCPCS: 36000; 36415; 74018; 74019; 80048; 80053; 82150; 82270; 83690; 85025; 94640; 96360; 99285-25; A4217; A9270-GY; J3480; J7030; J7620-GY

== ENCOUNTER 2021-01-10 10:24 | Inpatient (IN) | payer MEDICARE, OTHER ==
--- NOTE | 2021-01-10 15:20 | PCM.HP.2 ---
H&P History of Present Illness - General Date of Service: 01/10/21 Admit Problem/Dx: Swingbed admission s/p left elbow fracture and pelvis fracture. Source of Information: Patient, Old Records History Limitations: Reports: No Limitations - History of Present Illness Initial Comments - Free Text/Narative: Patient admitted for PT/OT and assistance with ADLs after sustaining right superior/inferior pubic ramus fractures/possible left inferior pubic ramus fracture and intra-articular fracture of left olecranon. Left elbow underwent surgical fixation/pinning at [facility]. Injury sustained due to tripping on a leash laying on ground and falling onto concrete driveway. - Related Data Allergies/Adverse Reactions: Allergies Allergy/AdvReac Type Severity Reaction Status Date / Time atorvastatin Allergy Muscle Verified 01/10/21 10:43 Aches Home Medications: Home Meds Acetaminophen [Tylenol Extra Strength] 1,000 mg PO TID@,,03/30/19 [History] Finasteride 5 mg PO DAILY 03/30/19 [History] Fluticasone Propion/Salmeterol [Advair 250-50 Diskus] 1 inh INH Q12HR 03/30/19 [History] Lisinopril/Hydrochlorothiazide [Lisinopril-Hctz 20-25 mg Tab] 1 tab PO DAILY 03/30/19 [History] atenoloL [Atenolol] 50 mg PO DAILY 03/30/19 [History] Albuterol/Ipratropium [DuoNeb 3.0-0.5 MG/3 ML] 3 ml NEB Q12HR PRN 01/10/21 [History] Celecoxib [CeleBREX] 200 mg PO DAILY 01/10/21 [History] Cholecalciferol (Vitamin D3) [Vitamin D3] 2,000 unit PO DAILY 01/10/21 [History] Cyclobenzaprine [Flexeril] 10 mg PO TID@,,01/10/21 [History] Gabapentin [Neurontin] 300 mg PO Q12HR 01/10/21 [History] Rosuvastatin [Crestor] 10 mg PO BEDTIME 01/10/21 [History] Sennosides/Docusate Sodium [Senna-Docusate Sodium Tablet] 1 each PO BEDTIME 01/10/21 [History] Tamsulosin HCl 0.4 mg PO BEDTIME 01/10/21 [History] oxyCODONE 5 mg PO Q4HR PRN 01/10/21 [History] polyethylene glycoL 3350 [MiraLAX] 17 gm PO DAILY 01/10/21 [History] Past Medical History HEENT History: Reports: Hard of Hearing, Impaired Vision Cardiovascular History: Reports: High Cholesterol, Hypertension Respiratory History: Reports: COPD Gastrointestinal History: Reports: GERD Genitourinary History: Reports: BPH, Prostate Disorder Musculoskeletal History: Reports: Arthritis, Gout - Past Surgical History HEENT Surgical History: Reports: Oral Surgery Other Musculoskeletal Surgeries/Procedures:: bone removal to right wrist Social & Family History - Family History Family Medical History: No Pertinent Family History - Tobacco Use Tobacco Use Status *Q: Current Every Day Tobacco User Years of Tobacco use: 53 Packs/Tins Daily: 2 - Caffeine Use Caffeine Use: Reports: Coffee - Alcohol Use Alcohol Use History: Yes Alcohol Use Comment: Reports consuming approximately 20 cans of beer weekly plus a few shots of rum. - Recreational Drug Use Recreational Drug Use: No H&P Review of Systems - Review of Systems: Review Of Systems: See Below General: Denies: Fever, Chills, Night Sweats, Diaphoresis HEENT: Reports: Other (Uses hearing aids). Denies: Sore Throat, Visual Changes Pulmonary: Reports: Shortness of Breath (chronic, has COPD), Cough (Chronic smokers cough/unchanged). Denies: Wheezing (chronic/unchanged, has COPD), Pleuritic Chest Pain, Hemoptysis Cardiovascular: Reports: Dyspnea on Exertion. Denies: Chest Pain, Palpitations, Orthopnea, Edema, Lightheadedness, Syncope, Blood Pressure Problem Gastrointestinal: Denies: Abdominal Pain, Constipation, Diarrhea, Distension, Melena, Nausea, Vomiting Genitourinary: Reports: Other (BPH/no acute changes) Musculoskeletal: Reports: Other (Pain associated with chronic arthritis in addition to acute fractures involving left elbow and pelvis) Skin: Reports: Other (no acute changes. Recent surgery left elbow. ) Psychiatric: Reports: No Symptoms Neurological: Reports: No Symptoms Hematologic/Lymphatic: Reports: No Symptoms Exam - Exam Exam: See Below - Vital Signs Weight: 71.668 kg - Exam Quality Assessment: Other (appears older than stated age) General: Alert, Oriented, Cooperative HEENT: Conjunctiva Clear, EACs Clear, EOMI, Pupils Equal, Pupils Reactive, Other (hard of hearing.), PERRLA Neck: Supple, Trachea Midline Lungs: Normal Respiratory Effort, Other (a few scattered rhonchi noted). No: Rales, Stridor Cardiovascular: Regular Rate, Regular Rhythm, Normal S1, Normal S2. No: Systolic Murmur GI/Abdominal Exam: Normal Bowel Sounds, Soft, Non-Tender, No Distention (Male) Exam: Deferred Rectal (Males) Exam: Deferred Back Exam: No: Muscle Spasm Extremities: Limited Range of Motion, Other (good cap refill. Bandage left elbow left in place. Unable to assess ROM legs due to pelvic fracture pain. Right shoulder discomfort/patient says chronic and due to arthritis. ). No: Increased Warmth, Mottled, Pallor, Redness Skin: Warm, Dry Neuro Extensive - Mental Status: Alert, Oriented x3, Normal Cognition Psychiatric: Alert, Normal Affect, Normal Mood - Problem List (1) Pelvis fracture SNOMED Code(s): 26440206 ICD Code: S32.9XXA - FRACTURE OF UNSP PARTS OF LUMBOSACRAL SPINE AND PELVIS, INIT Status: Acute Priority: High Current Visit: Yes Onset Date: 01/04/21 Problem Details: Here for PT/OT and assistance with ADLs. Tripped over a leash laying on the ground while running after grandson. Fell onto concrete and sustained injury. [facility] paperwork notes right superior and inferior pubic rami fractures extending through pubic symphysis with questionable left inferior pubic ramus fracture. No surgical intervention. Qualifiers: Encounter type: sequela Pelvic bone location: multiple parts Fracture type: closed (2) Fracture of left olecranon process SNOMED Code(s): 979455049 ICD Code: S52.022A - DISP FX OF OLECRAN PRO W/O INTARTIC EXTN LEFT ULNA, INIT Status: Acute Priority: High Current Visit: Yes Onset Date: 01/04/21 Problem Details: See above. Required surgical intervention and pinning. Here for PT/OT. Qualifiers: Encounter type: sequela Fracture type: closed Qualified Code(s): S52.022S - Displaced fracture of olecranon process without intraarticular extension of left ulna, sequela (3) HTN (hypertension) SNOMED Code(s): 68277611 ICD Code: I10 - ESSENTIAL (PRIMARY) HYPERTENSION Status: Chronic Priority: Medium Current Visit: Yes Problem Details: Observe trends while on Swing Bed Qualifiers: Hypertension type: essential hypertension Qualified Code(s): I10 - Essential (primary) hypertension (4) BPH (benign prostatic hyperplasia) SNOMED Code(s): 289499027 ICD Code: N40.0 - BENIGN PROSTATIC HYPERPLASIA WITHOUT LOWER URINRY TRACT SYMP Status: Chronic Priority: Low Current Visit: Yes Problem Details: Stable at this time per history Qualifiers: Lower urinary tract symptom presence: unspecified whether lower urinary tract symptoms present Qualified Code(s): N40.0 - Benign prostatic hyperplasia without lower urinary tract symptoms (5) COPD (chronic obstructive pulmonary disease) SNOMED Code(s): 59232247 ICD Code: J44.9 - CHRONIC OBSTRUCTIVE PULMONARY DISEASE, UNSPECIFIED Status: Chronic Priority: Medium Current Visit: Yes Problem Details: Chronic. Patient feels that he has been a bit more SOB than usual since injury and elbow surgery. No focal acute findings on recent chest xray performed at [facility] Qualifiers: COPD type: emphysema Emphysema type: unspecified Qualified Code(s): J43.9 - Emphysema, unspecified (6) Hyperlipidemia SNOMED Code(s): 18208199 ICD Code: E78.5 - HYPERLIPIDEMIA, UNSPECIFIED Status: Chronic Priority: Medium Current Visit: Yes Problem Details: Followed by primary care provider. (7) Osteoarthritis SNOMED Code(s): 045393173 ICD Code: M19.90 - UNSPECIFIED OSTEOARTHRITIS, UNSPECIFIED SITE Status: ron Priority: Medium Current Visit: Yes Problem Details: Chronic arthritis with history of inflammatory arthritis. Right shoulder was bothering him this morning. Qualifiers: Osteoarthritis location: multiple joints (8) Inflammatory arthritis SNOMED Code(s): 0964201 ICD Code: M19.90 - UNSPECIFIED OSTEOARTHRITIS, UNSPECIFIED SITE Status: Chronic Priority: Low Current Visit: No Problem Details: Stable at this time per history (9) Smoker SNOMED Code(s): 78894076 ICD Code: F17.200 - NICOTINE DEPENDENCE, UNSPECIFIED, UNCOMPLICATED Status: Chronic Priority: Medium Current Visit: Yes Problem Details: Patient smokes 1.5-2ppd. No interest at this time in smoking cessation. (10) Vascular disease Status: Chronic Priority: Low Current Visit: No Problem Details: Hx right femoral endarterectomy and angioplasty, bilateral iliac artery stents (11) History of gout SNOMED Code(s): 440116971 ICD Code: Z87.39 - PERSONAL HISTORY OF DISEASES OF THE MS SYS AND CONN TISS Status: Chronic Priority: Low Current Visit: No Problem List Initiated/Reviewed/Updated: Yes Assessment/Plan Comment:: as above. Initiate PT/OT. Anticipate it could be several weeks until patient able to return home. He does live along. Has two sons in area but one of the sons is undergoing treatment for stage 4 cancer at [facility]. The other son is tending to his brother during this time but should be able to be of some assistance to the patient once patient is able to be discharged. - Mortality Measure Prognosis:: Good
[2021-01-10] MEDS ORDERED: Albuterol/Ipratropium 3.0-0.5 MG/3 ML Neb Soln NEB PRN (16:16)
[2021-01-10] MEDS: oxyCODONE 5 MG Tab PO PRN ×2 (17:25→23:33)
[2021-01-10] MEDS: Acetaminophen 500 MG Tab PO SCH (19:41)
[2021-01-10] MEDS: Tamsulosin 0.4 MG Cap.ER PO SCH (19:43)
[2021-01-10] MEDS: Gabapentin 300 MG Cap PO SCH (19:43)
[2021-01-10] MEDS: Cyclobenzaprine 10 MG Tab PO SCH (19:44)
[2021-01-10] MEDS: Rosuvastatin 10 MG Tab PO SCH (19:44)
[2021-01-10] MEDS: Albuterol/Ipratropium 3.0-0.5 MG/3 ML Neb Soln NEB SCH (19:45)
[2021-01-11] MEDS: oxyCODONE 5 MG Tab PO PRN ×4 (03:55→22:17)
[2021-01-11 07:37] LABS: CHLORIDE,CL 98 mmol/L (98-107); SODIUM,NA 131 mmol/L (136-145)
[2021-01-11] MEDS: Albuterol/Ipratropium 3.0-0.5 MG/3 ML Neb Soln NEB SCH ×2 (08:17→19:45)
[2021-01-11] MEDS: Cholecalciferol (Vitamin D3) 25 MCG Tab PO SCH (08:19)
[2021-01-11] MEDS: Finasteride 5 MG Tab PO SCH (08:19)
[2021-01-11] MEDS: Acetaminophen 500 MG Tab PO SCH ×3 (08:20→19:44)
[2021-01-11] MEDS: Gabapentin 300 MG Cap PO SCH ×2 (08:21→19:43)
[2021-01-11] MEDS: Lisinopril 20 MG Tab PO SCH (08:21)
[2021-01-11] MEDS: Polyethylene Glycol 3350 Powder 17 GM Packet PO SCH (08:22)
[2021-01-11] MEDS: Atenolol 50 MG Tab PO SCH (08:22)
[2021-01-11] MEDS: Hydrochlorothiazide 25 MG Tab PO SCH (08:22)
[2021-01-11] MEDS: Celecoxib 100 MG Cap PO SCH (08:22)
[2021-01-11] MEDS: Cyclobenzaprine 10 MG Tab PO SCH ×3 (08:22→19:43)
[2021-01-11] MEDS: Tamsulosin 0.4 MG Cap.ER PO SCH (19:42)
[2021-01-11] MEDS: Rosuvastatin 10 MG Tab PO SCH (19:42)
[2021-01-12] MEDS: oxyCODONE 5 MG Tab PO PRN ×2 (06:58→21:50)
--- OUTSIDE RECORDS SUMMARY | 2021-01-12 07:56 | XMSREPORT ---
:1955 Author Organization [facility] s Address [address] [place] [address] Care Team Providers Name Role Phone Cornel Saleh PA-C Attributed Provider Cornel Saleh PA-C Primary Care Provider Reason for Visit Reason Comments Fall Pt arrives via [facility] with reports of a fall and left arm injury. Pt was chasing his grandson today when he tripped on a dog leash and fell on his left arm. Left arm sw ollen on arrival, no deformity noted. Pt also c/o bilateral hip pain, pain to touch, Arm Injury Left arm/elbow pain and swel ling. Pt able to fully extend and flex arm. Sensation and pulses normal. Auth/Cert Status Reason Specialty Diagnoses / Procedures Referred By Kendrick howell Referred To Contact Encounter Details Date Type Department Care Team Description 01/04/2021 - Hospital Encounter [facility] Department [address] [place] [address] [phone] Trauma 01/10/2021 CENTER 8CD MED SURG Jacey Barry MD [address] [place] [address] [phone] Jenny Short MD [address] [place] [address] [phone] [address] [facility] Denny Enrique MD [address] [place] [id number] [phone] [place], [place] [address] Izaiah Oviedo, [address] [place], [place] [address] [phone] Allergies Active Allergy Reactions Severity Noted Date Comments Atorvastatin Other (Specify in Comments) 06/01/2019 myalgias documented as of this encounter (statuses as of 01/10/2021) Medications Medication Sig Dispensed Refills Start End Status Date Date cyclobenzaprine Take 1 tablet 42 tablet 0 2 01/22/ Active (FLEXERIL) 10 mg (10 mg) by 2020 tabletIndications: Pain mouth 3 times a of left lower extremity day for 14 days acetaminophen (TYLENOL) Take 2 tablets 84 tablet 0 01/10/2 0 01/24/ Active 500 mg (1,000 mg) by 2020 tabletIndications: mouth 3 times a Closed olecranon day for 14 days fracture, left, initial encounter, Closed pelvic ring fracture, initial encounter ([facility]) oxyCODONE (OXY-IR) 5 mg Take 1 tablet 25 tablet 0 2 / Active tablet (immediate (5 mg) by mouth 2020 release)Indications: Every 4 hours Closed olecranon as needed for fracture, left, initial moderate pain encounter, Closed for up to 5 pelvic ring fracture, days initial encounter ([facility]) celecoxib (CELEBREX) Take 1 capsule 30 capsule 0 01/10/2 / Active 200 mg (200 mg) by 2020 capsuleIndications: mouth 1 time a Bilateral shoulder day with region arthritis, Right breakfast foot pain fluticasone-salmeterol Inhale 1 puff 180 each 0 01/10/2 / Active (ADVAIR DISKUS) 250-50 orally 2 times 021 20 21 mcg/dose a day RINSE discusIndications: MOUTH AFTER Chronic obstructive USE. pulmonary disease, unspecified COPD type ([facility]) albuterol-ipratropium Inhale 1 30 mL 0 Active (DUO-NEB) 2.5-0.5 mg/3 unit-dose (3 021 mL inhalation mL) by solutionIndications: nebulization Chronic obstructive Every 12 hours pulmonary disease, as needed for unspecified COPD type bronchospasm, ([facility]) shortness of breath or wheezing gabapentin (NEURONTIN) Take 1 capsule 60 capsule 0 01/10/2 0 02/09/ Active 300 mg (300 mg) by 2020 capsuleIndications: mouth 2 times a Right foot pain, Leg day cramping rosuvastatin (CRESTOR) Take 1 tablet 30 tablet 0 //2 / Active 10 mg (10 mg) by 2020 tabletIndications: Pure mouth every hypercholesterolemia night at bedtime lisinopril-hydroCHLOROt Take 1 tablet 30 tablet 0 01/10/2 / Active hiazide (PRINZIDE, by mouth 1 time 2020 ZESTORETIC) 20-25 mg per day tabletIndications: Essential hypertension atenolol (TENORMIN) 50 Take 1 tablet 30 tablet 0 01/10/2 / Active mg tabletIndications: (50 mg) by 2020 Essential hypertension mouth 1 time per day polyethylene glycol Take 1 packet 10 packet 0 01/10/01/20/ Active (MIRALAX) 17 g by mouth 1 time 2020 packetIndications: per day for 10 Closed olecranon days Dissolve fracture, left, initial in 4 to 8 encounter, Closed ounces of pelvic ring fracture, water, juice, initial encounter (HCC) soda, coffee, tea. senna-docusate sodium Take 1 tablet 10 tablet 0 01/10/2 04/0 3/ Active (SENOKOT-S;PERICOLACE) by mouth every 8.6-50 MG night at tabletIndications: bedtime for 10 Closed olecranon days fracture, left, initial encounter, Closed pelvic ring fracture, initial encounter ([facility]) finasteride (PROSCAR) 5 Take 1 tablet 30 tablet 0 01/10/2 / Active MG tabletIndications: (5 mg) by mouth Benign prostatic 1 time per day hyperplasia with urinary obstruction tamsulosin (FLOMAX) 0.4 Take 1 capsule 30 capsule 0 //2 02/09/ Active mg capsuleIndications: (0.4 mg) by 2020 Benign prostatic mouth every hyperplasia with night at urinary obstruction bedtime vitamin D3, Take 1 tablet 30 tablet 0 01/10/2 02/09/ Acti ve cholecalciferol, 50 mcg (50 mcg) by 2020 (2000 unit) mouth 1 time tabletIndications: per day Vitamin D deficiency ibuprofen Take 600 mg by 0 01/05/ Disco ntinued (ADVIL;MOTRIN-IB) 200 mouth Every 4 2020 (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 mg tablet hours as needed erro r) for mild pain cyclobenzaprine TAKE 1 TABLET 30 tablet 1 01/05/ Discontinued (FLEXERIL) 10 mg (10 MG) BY 2020 (D meagn entry tabletIndications: Pain MOUTH AT error) of left lower extremity BEDTIME NEEDED FOR MUSCLE SPASM trimethoprim-polymyxin Place 1 drop 1 Bottle 0 12/19 Discontinued B (POLYTRIM) ophthalmic into the right (Stop Taking solutionIndications: eye 4 times a at Discharge) Hordeolum externum of day right lower eyelid tamsulosin (FLOMAX) 0.4 Take 1 capsule 90 capsule 3 01/08/ Discontinued mg capsuleIndications: (0.4 mg) by 2020 (Reorder) Benign prostatic mouth every hyperplasia with night at urinary obstruction bedtime atenolol (TENORMIN) 50 Take 1 tablet 90 tablet 3 / Discontinued mg tabletIndications: (50 mg) by 2020 (Reorder) Essential hypertension mouth 1 time per day rosuvastatin (CRESTOR) Take 1 tablet 90 tablet 3 / Discontinued 10 mg (10 mg) by 2020 (Reorder) tabletIndications: Pure mouth every hypercholesterolemia night at bedtime finasteride (PROSCAR) 5 Take 1 tablet 90 tablet 3 / Discontinued MG tabletIndications: (5 mg) by mouth (Reorder) Benign prostatic 1 time per day hyperplasia with urinary obstruction celecoxib (CELEBREX) Take 1 capsule 90 capsule 3 / Discontinued 200 mg (200 mg) by 2020 (Reorder ) capsuleIndications: mouth 1 time a Bilateral shoulder day with region arthritis, Right breakfast foot pain clopidogrel (PLAVIX) 75 Take 1 tablet 90 tablet 3 / Discontinued mg tabletIndications: (75 mg) by 2020 (Stop Taking PAD (peripheral artery mouth 1 time at Discharge) disease) (HCC) per day lisinopril-hydroCHLOROt Take 1 tablet 90 tablet 3 / Discontinued hiazide (PRINZIDE, by mouth 1 time 2020 (Reorder) ZESTORETIC) 20-25 mg per day tabletIndications: Essential hypertension albuterol-ipratropium Inhale 1 1 box 0 01/08/ Discontinued (DUO-NEB) 2.5-0.5 mg/3 unit-dose (3 2020 (Reorder) mL inhalation mL) by solutionIndications: nebulization Chronic obstructive Every 12 hours pulmonary disease, as needed for unspecified COPD type bronchospasm, (HCC) shortness of breath or wheezing fluticasone-salmeterol Inhale 1 puff 180 each 3 / Discontinued (ADVAIR DISKUS) 250-50 orally 2 times (Reorder) mcg/dose a day RINSE discusIndications: MOUTH AFTER Chronic obstructive USE. pulmonary disease, unspecified COPD type (HCC) vitamin D3, Take 1 tablet 0 01/08/ Disc ontinued cholecalciferol, 50 mcg (50 mcg) by 2020 (Reorder) (2000 unit) mouth 1 time tabletIndications: per day Vitamin D deficiency gabapentin (NEURONTIN) TAKE 1 CAPSULE 180 capsule 1 01/08/ Discontinued 300 mg (300 MG) BY 2020 (Reorder ) capsuleIndications: MOUTH 2 TIMES A Right foot pain, Leg DAY cramping acetaminophen (TYLENOL) Take 2 tablets 84 tablet 0 2 0 01/10/ Discontinued 500 mg (1,000 mg) by 2020 tabletIndications: mouth 3 times a Closed olecranon day for 14 days fracture, left, initial encounter, Closed pelvic ring fracture, initial encounter (HCC) celecoxib (CELEBREX) Take 1 capsule 30 capsule 0 2 / Discontinued 200 mg (200 mg) by 2020 (Reorder ) capsuleIndications: mouth 1 time a Bilateral shoulder day with region arthritis, Right breakfast foot pain oxyCODONE (OXY-IR) 5 mg Take 1 tablet 25 tablet 0 01/08/2 / Discontinued tablet (immediate (5 mg) by mouth 2020 release)Indications: Every 4 hours Closed olecranon as needed for fracture, left, initial moderate pain encounter, Closed or severe pain pelvic ring fracture, for up to 5 initial encounter (HCC) days fluticasone-salmeterol Inhale 1 puff 180 each 0 01/08// Discontinued (ADVAIR DISKUS) 250-50 orally 2 times (Reorder) mcg/dose a day RINSE discusIndications: MOUTH AFTER Chronic obstructive USE. pulmonary disease, unspecified COPD type ([facility]) albuterol-ipratropium Inhale 1 30 mL 0 01/08/01/10/ Discontinued (DUO-NEB) 2.5-0.5 mg/3 unit-dose (3 2020 (Reorder) mL inhalation mL) by solutionIndications: nebulization Chronic obstructive Every 12 hours pulmonary disease, as needed for unspecified COPD type bronchospasm, ([facility]) shortness of breath or wheezing gabapentin (NEURONTIN) Take 1 capsule 60 capsule 0 0 01/10/ Discontinued 300 mg (300 mg) by 2020 (Reorder ) capsuleIndications: mouth 2 times a Right foot pain, Leg day cramping atenolol (TENORMIN) 50 Take 1 tablet 30 tablet 0 / Discontinued mg tabletIndications: (50 mg) by 2020 (Reorder) Essential hypertension mouth 1 time per day rosuvastatin (CRESTOR) Take 1 tablet 30 tablet 0 / Discontinued 10 mg (10 mg) by 2020 (Reorder) tabletIndications: Pure mouth every hypercholesterolemia night at bedtime lisinopril-hydroCHLOROt Take 1 tablet 30 tablet 0 01/08// Discontinued hiazide (PRINZIDE, by mouth 1 time 2020 (Reorder) ZESTORETIC) 20-25 mg per day tabletIndications: Essential hypertension polyethylene glycol Take 1 packet 10 packet 0 01/09/01/10/ Discontinued (MIRALAX) 17 g by mouth 1 time 2020 packetIndications: per day for 10 Closed olecranon days Dissolve fracture, left, initial in 4 to 8 encounter, Closed ounces of pelvic ring fracture, water, juice, initial encounter ([facility]) soda, coffee, tea. senna-docusate sodium Take 1 tablet 10 tablet 0 03/22/2 03/2 4/ Discontinued (SENOKOT-S;PERICOLACE) by mouth every 8.6-50 MG night at tabletIndications: bedtime for 10 Closed olecranon days fracture, left, initial encounter, Closed pelvic ring fracture, initial encounter ([facility]) finasteride (PROSCAR) 5 Take 1 tablet 30 tablet 0 2 / Discontinued MG tabletIndications: (5 mg) by mouth (Reorder) Benign prostatic 1 time per day hyperplasia with urinary obstruction tamsulosin (FLOMAX) 0.4 Take 1 capsule 30 capsule 0 01/10/ Discontinued mg capsuleIndications: (0.4 mg) by 2020 (Reorder) Benign prostatic mouth every hyperplasia with night at urinary obstruction bedtime vitamin D3, Take 1 tablet 30 tablet 0 2 01/10/ Disc ontinued cholecalciferol, 50 mcg (50 mcg) by 2020 (Reorder) (2000 unit) mouth 1 time tabletIndications: per day Vitamin D deficiency documented as of this encounter (statuses as of 01/10/2021) Active Problems Problem Noted Date Trauma 01/04/2021 PAD (peripheral artery disease) 12/03/2019 Stenosis of right femoral artery 12/03/2019 Rest pain of right upper extremity due to atherosclero sis 12/03/2019 Prediabetes 08/17/2019 Excessive drinking of alcohol 07/21/2018 Cigarette smoker 07/21/2018 BPH (benign prostatic hyperplasia) 07/07/2015 Idiopathic gout of multiple sites 10/01/2014 COPD (chronic obstructive pulmonary disease) 7 Tobacco use disorder 02/20/2007 Pure hypercholesterolemia 07/21/2003 Essential hypertension 07/21/2003 documented as of this encounter (statuses as of 01/10/2021) Resolved Problems Problem Noted Date Resolved Date Alcohol abuse 08/17/2019 08/24/2020 Impaired fasting glucose 07/21/2018 08/24/2020 Bact Pleur/Effus not TB 02/20/2007 10/01/2014 documented as of this encounter (statuses as of 01/10/2021) Immunizations Name Administration Dates Next Due FLU VACCINE HIGH DOSE 65YR+(Fluzone) 07/21/2020, 08/17/2019, 07/21/2018 Moderna COVID-19 Vaccine 12/28/2020 Pneumococcal Conj PCV13 07/21/2018 Pneumococcal Polysaccharide PPSV23 08/17/2019 documented as of this encounter Social History Tobacco Use Types Packs/Day Years Used Date Current Every Day Smoker Cigarettes 2 50 Sta rted: 05/27/1968 Smokeless Tobacco: Never Used Tobacco Cessation: Ready to Quit: No; Co unseling Given: No Comments: 1.5 ppd Alcohol Use Drinks/Week oz/Week Comments Yes 20 Cans of beer 22.0 either beer or rum 2 Shots of liquor Sexually Active Control Partners Comments Not Currently Sex Assigned at Date Recorded Not on file documented as of this encounter Last Filed Vital Signs Vital Sign Reading Time Taken Comments Blood Pressure 98/54 01/10/2021 11:03 AM CDT Pulse 96 01/10/2021 11:03 AM CDT Temperature 37.2 C (99 F) 01/10/2021 11:03 AM CDT Respiratory Rate 17 01/10/2021 11:03 AM CDT Oxygen Saturation 92% 01/10/2021 11:03 AM CDT Inhaled Oxygen Concentration - - Weight 71.7 kg (158 lb) 01/05/2021 12:00 AM CDT Height 175.3 cm (5' 9") 01/05/2021 12:00 AM CDT Body Mass Index 23.33 01/05/2021 12:00 AM CDT documented in this encounter Functional Status Functional Status Response Date of Assessment Is the person deaf or does he/she have serious difficulty No 12/01/2019 hearing? Is this person blind or does he/she have difficulty No 12/01/2019 seeing even when wearing glasses? Do you have difficulty with walking, balance, climbing Yes 12/03/2019 stairs, or had a fall in the last 3 months? Does the patient have difficulty dressing or bathing? Yes 12/01/2019 Because of a physical, mental, or emotional condition; Yes 12/01/2019 does this person have difficulty doing errands alone such as visiting a doctor's office or shopping? Cognitive Status Response Date of Assessment Because of a physical, mental, or emotional condition; No 12/01/2019 does this person have serious difficulty concentrating, remembering, or making decisions? documented as of this encounter Discharge Summaries Izaiah Oviedo DO - 01/10/2021 8:48 AM CDT Hospital Discharge Summary Attending Physician: Izaiah Oviedo DO Attending Physician Specialty: Internal Medicine Admit Date: 01/04/2021 Discharge Date: 01/10/21 Primary Care Physician: Tamia Saleh PA-C Discharge Diagnoses Active Problems: Trauma Resolved Problems: * No resolved hospital problems. * Acute closed displaced olecranon fracture status post surgical repair Bilateral obturator ring fractures Nondisplaced left-sided acetabular fracture Hyperlipidemia BPH COPD Tobacco use Peripheral arterial disease Hospital Course No notes on file Izaiah is a 65-year-old male with a past medical history of hyperlipidemia, hypertension, COPD, current tobacco use, gout, BPH, peripheral arterial disease, and prediabetes who was admitted to [facility] on 01/04/2021 for further evaluation and management after suffering a mild acutetrauma. He reportedly was walking his dog and got "caught up" on a leash and fell onto his left elbow and his right hip. He does report hitting his head however denied any loss of consciousness. He was initially admitted by trauma team however they have since been able to sign off after no evidence of severe trauma. Initial work-up on admission revealed left closed displaced olecranon fracture as well as bilateral obturator ring fractures and a nondisplaced left- sided acetabular fracture. Orthopedics was able to evaluate and recommended surgical fixation of left olecranon fracture and conservative management for obturator ring fractures and acetabular fracture. PT/OT were consulted and recommended ST-SNF. Internal medicine was consulted for medical comanagement. No significant events during his hospitalstay. He was noted to have a mild persistent leukocytosis without evidence of fever or other infectious signs on exam or history (no urinary symptoms, no sites of pain other than his fracture sites). CXR completed did not reveal any evidence for pneumonia. Recommended to follow-up with his PCP in a few weeks after he is able to DC from SNF for repeat labs. He was also encouraged to push oral intake given slight increase in his creatinine today likely frompoor oral intake. He was able to safely discharge today to SNF for continued therapy. LabTests Pending at Discharge Unresulted Lab Orders (From admission, onward) Start Ordered 01/05/21 0432 COMPLETE BLOOD COUNT WITH DIFFERENTIAL Early AM draw, Routine Start: 01/05/21431 End: Until Specified 01/04/21233601/05/21431 BASIC METABOLIC PANEL Early AM draw, Routine Start: 01/05/21431 End: Until Specified 01/04/212336 Follow-Up Scheduled Contact information for follow-up fErain Fay MD Specialty: Orthopedic Surgery [facility] [address] [place] [id number] Next Steps: Follow up on 02/20/2021 Instructions: Saturday February 20, 2021 10:00 AM Preliminary Discharge Medications This list of medications is preliminary and tentative. Please see the After Visit Summary for the final and accurate medication list. Discharge Medication List START taking these medications START: acetaminophen 500 mg tablet Commonly known as: TYLENOL Dose: 1,000 mg Take 2 tablets (1,000 mg) by mouth 3 times a day for 14 days START: oxyCODONE 5 mg tablet (immediate release) Commonly known as: OXY-IR Dose: 5 mg Take 1 tablet (5 mg) by mouth Every 4 hours as needed for moderate pain or severe pain for up to 5 days START: polyethylene glycol 17 g packet Commonly known as: MIRALAX Dose: 1 packet Take 1 packet by mouth 1 time per day for 10 days Dissolve in 4 to 8 ounces of water, juice, soda, coffee, tea. START: senna-docusate sodium 8.6-50 MG tablet Commonly known as: SENOKOT-S;PERICOLACE Dose: 1 tablet Take 1 tablet by mouth every night at bedtime for 10 days CONTINUE taking these medications which have CHANGED CONTINUE: cyclobenzaprine 10 mg tablet Commonly known as: FLEXERIL Dose: 10 mg Take 1 tablet (10 mg) by mouth 3 times a day for 14 days What changed: when to take this reasons to take this CONTINUE: fluticasone-salmeterol 250-50 mcg/dose discus Commonly known as: Advair Diskus Dose: 1 puff Inhale 1 puff orally 2 times a day RINSE MOUTH AFTER USE. What changed: when to take this reasons to take this CONTINUE: gabapentin 300 mg capsule Commonly known as: NEURONTIN Dose: 300 mg Take 1 capsule (300 mg) by mouth 2 times a day What changed: when to take this CONTINUE taking these medications which have NOT CHANGED CONTINUE: albuterol-ipratropium 2.5-0.5 mg/3 mL inhalation solution Commonly known as: DUO-NEB Dose: 1 unit-dose Inhale 1 unit-dose (3 mL) by nebulization Every 12 hours as needed for bronchospasm, shortness of breath or wheezing CONTINUE: atenolol 50 mg tablet Commonly known as: TENORMIN Dose: 50 mg Take 1 tablet (50 mg) by mouth 1 time per day CONTINUE: celecoxib 200 mg capsule Commonly known as: celeBREX Dose: 200 mg Take 1 capsule (200 mg) by mouth 1 time a day with breakfast CONTINUE: finasteride 5 MG tablet Commonly known as: PROSCAR Dose: 5 mg Take 1 tablet (5 mg) by mouth 1 time per day CONTINUE: lisinopril-hydroCHLOROthiazide 20-25 mg tablet Commonly known as: PRINZIDE, ZESTORETIC Dose: 1 tablet Take 1 tablet by mouth 1 time per day CONTINUE: rosuvastatin 10 mg tablet Commonly known as: CRESTOR Dose: 10 mg Take 1 tablet (10 mg) by mouth every night at bedtime CONTINUE: tamsulosin 0.4 mg capsule Commonly known as: FLOMAX Dose: 0.4 mg Take 1 capsule (0.4 mg) by mouth every night at bedtime CONTINUE: vitamin D3 (cholecalciferol) 50 mcg (2000 unit) tablet Dose: 50 mcg Take 1 tablet (50 mcg) by mouth 1 time per day You might also be taking other medications not listed above. If you have questions about any of your other medications, talk to the person who prescribed them or your Primary Care Provider. STOP taking these medications STOP: clopidogrel 75 mg tablet Commonly known as: PLAVIX STOP: trimethoprim-polymyxin B ophthalmic solution Commonly known as: POLYTRIM Where to Get Your Medications These medications were sent to [id number] [place] [address] [address], [place] [address] acetaminophen 500 mg tablet albuterol-ipratropium 2.5-0.5 mg/3 mL inhalation solution atenolol 50 mg tablet celecoxib 200 mg capsule cyclobenzaprine 10 mg tablet finasteride 5 MG tablet fluticasone-salmeterol 250-50 mcg/dose discus gabapentin 300 mg capsule lisinopril-hydroCHLOROthiazide 20-25 mg tablet oxyCODONE 5 mg tablet (immediate release) polyethylene glycol 17 g packet rosuvastatin 10 mg tablet senna-docusate sodium 8.6-50 MG tablet tamsulosin 0.4 mg capsule vitamin D3 (cholecalciferol) 50 mcg (2000 unit) tablet Temp: 98.3 F (36.8 C) BP: 139/74 Weight: 71.7 kg (158 lb) SpO2: 91 % Resp: 16 Pulse: 94 Current BMI (>50 = increased risk): 23.32 O2 Device: Room Air O2 Flow Rate (L/min): 0 l/min Physical Exam Constitutional: He is oriented to person, place, and time and well-developed, well-nourished, and inno distress. No distress. HENT: Head: Normocephalic and atraumatic. Right Ear: External ear normal. Left Ear: External ear normal. Nose: Nose normal. Mouth/Throat: Oropharynx is clear and moist. No oropharyngeal exudate. Eyes: Conjunctivae and EOM are normal. Cardiovascular: Normal rate, regular rhythm, normal heart sounds and intact distal pulses. No murmur heard. Pulmonary/Chest: Effort normal and breath sounds normal. No respiratory distress. He has no wheezes.He has no rales. Abdominal: Soft. He exhibits no distension. There is no abdominal tenderness. Musculoskeletal: General: Tenderness and edema present. Comments: Splint to left elbow. Neurological: He is alert and oriented to person, place, and time. He exhibits normal muscle tone. Skin: Skin is warm and dry. No rash noted. He is not diaphoretic. No erythema. Nursing note and vitals reviewed. Procedures Performed and Findings All procedures during admission Procedure(s): Left - OPEN REDUCTION AND INTERNAL FIXATION OF LEFT OLECRANON FRACTURE - Wound Class: Clean Consultations Obtained CONSULT ORTHOPEDICS NICOTINE / TOBACCO CESSATION REFERRAL CONSULT INTERNAL MEDICINE [facility] REFERRAL Discharge Disposition Instructions for after discharge Contact your doctor if you develop a temperature greater than 101 degrees Contact your doctor if you experience increased pain, numbness, or tingling Contact your doctor if you have any questions in the first week Contact your doctor if you notice any drainage from your incision after 48 hours Contact your doctor if you notice any redness or swelling around your incision Do not begin any exercise program until you receive approval from your doctor. Walking is a safe exercise Do not operate equipment such as power tools, mowers, snow blowers Elevate extremity Elevate affected extremity as needed for swelling. Ice to affected area: Ice to affected area: cold packs as needed for swelling and pain. Alternate 20 minutes on and 20 minutes off. Assess skin every 2 hrs. Do not apply directly on skin. If you have questions or concerns, please call your orthopedic surgeon at the clinic Keep dressing clean/dry/intact until follow-up appointment May shower - Cover incision with water proof dressing so it doesn't get wet No driving No Driving until follow up with your health care provider. No lifting with affected extremity No tub bath until directed No use of alcohol or non-prescription drugs Please call 911 and seek immediate emergency care if you experience any chest pain or shortness of breath or if you are coughing up blood Resume home diet Walk frequently and gradually increase the distance you are walking Walk with assistive device Weight bearing status - as tolerated Bilateral lower extremities with front wheeled walker Weight bearing status - non-weight bearing Left upper extremity. Wear the sling at all times Medical Decision Making A total of 35 minutes were spent on discharge coordination. documented in this encounter Medications at Time of Discharge Medication Sig Dispensed Refills Start Date End Date acetaminophen (TYLENOL) 500 Take 2 tablets 84 tablet 0 12/1901/24/2021 mg tabletIndications: (1,000 mg) by Closed olecranon fracture, mouth 3 times a left, initial encounter, day for 14 days Closed pelvic ring fracture, initial encounter ([facility]) oxyCODONE (OXY-IR) 5 mg Take 1 tablet (5 25 tablet 0 202001/15/2021 tablet (immediate mg) by mouth Every release)Indications: Closed 4 hours as needed olecranon fracture, left, for moderate pain initial encounter, Closed for up to 5 days pelvic ring fracture, initial encounter ([facility]) celecoxib (CELEBREX) 200 mg Take 1 capsule 30 capsule 0 12/1902/09/2021 capsuleIndications: (200 mg) by mouth Bilateral shoulder region 1 time a day with arthritis, Right foot pain breakfast fluticasone-salmeterol Inhale 1 puff 180 each 0 01/10/2021 02/09/2021 (ADVAIR DISKUS) 250-50 orally 2 times a mcg/dose discusIndications: day RINSE MOUTH Chronic obstructive AFTER USE. pulmonary disease, unspecified COPD type ([facility]) albuterol-ipratropium Inhale 1 unit-dose 30 mL 0 2020 (DUO-NEB) 2.5-0.5 mg/3 mL (3 mL) by inhalation nebulization Every solutionIndications: 12 hours as needed Chronic obstructive for bronchospasm, pulmonary disease, shortness of unspecified COPD type ([facility]) breath or wheezing gabapentin (NEURONTIN) 300 Take 1 capsule 60 capsule 0 01/1002/09/2021 mg capsuleIndications: (300 mg) by mouth Right foot pain, Leg 2 times a day cramping rosuvastatin (CRESTOR) 10 Take 1 tablet (10 30 tablet 0 02/09/2021 mg tabletIndications: Pure mg) by mouth every hypercholesterolemia night at bedtime lisinopril-hydroCHLOROthiaz Take 1 tablet by 30 tablet 0 02/09/2021 chelsi (PRINZIDE, ZESTORETIC) mouth 1 time per 20-25 mg tabletIndications: day Essential hypertension atenolol (TENORMIN) 50 mg Take 1 tablet (50 30 tablet 0 02/09/2021 tabletIndications: mg) by mouth 1 Essential hypertension time per day polyethylene glycol Take 1 packet by 10 packet 0 01/10/2021 01/20/2021 (MIRALAX) 17 g mouth 1 time per packetIndications: Closed day for 10 days olecranon fracture, left, Dissolve in 4 to 8 initial encounter, Closed ounces of water, pelvic ring fracture, juice, soda, initial encounter ([facility]) coffee, tea. senna-docusate sodium Take 1 tablet by 10 tablet 0 01/11/20 21 01/20/2021 (SENOKOT-S;PERICOLACE) mouth every night 8.6-50 MG at bedtime for 10 tabletIndications: Closed days olecranon fracture, left, initial encounter, Closed pelvic ring fracture, initial encounter ([facility]) finasteride (PROSCAR) 5 MG Take 1 tablet (5 30 tablet 0 03/ 02/09/2021 tabletIndications: Benign mg) by mouth 1 prostatic hyperplasia with time per day urinary obstruction tamsulosin (FLOMAX) 0.4 mg Take 1 capsule 30 capsule 0 01/1002/09/2021 capsuleIndications: Benign (0.4 mg) by mouth prostatic hyperplasia with every night at urinary obstruction bedtime vitamin D3, Take 1 tablet (50 30 tablet 0 01/10/20212020 cholecalciferol, 50 mcg mcg) by mouth 1 (2000 unit) time per day tabletIndications: Vitamin D deficiency cyclobenzaprine (FLEXERIL) Take 1 tablet (10 42 tablet 0 01/22/2021 10 mg tabletIndications: mg) by mouth 3 Pain of left lower times a day for 14 extremity days documented as of this encounter Progress Notes Kg Izaiah, DO - 01/09/2021 10:11 AM CDT DAILY PROGRESS NOTE Brief History: Izaiah is a 65-year-old male with a past medical history of hyperlipidemia, hypertension, COPD, current tobacco use, gout, BPH, peripheral arterial disease, and prediabetes who was admitted to [facility] on 01/04/2021 for further evaluation and management after suffering a mild acutetrauma. He reportedly was walking his dog and got "caught up" on a leash and fell onto his left elbow and his right hip. He does report hitting his head however denied any loss of consciousness. He was initially admitted by trauma team however they have since been able to sign off after no evidence of severe trauma. Initial work-up on admission revealed left closed displaced olecranon fracture as well as bilateral obturator ring fractures and a nondisplaced left- sided acetabular fracture. Orthopedics was able to evaluate and recommended surgical fixation of left olecranon fracture and conservative management for obturator ring fractures and acetabular fracture. Internal medicine was consulted for medical comanagement. ASSESSMENT & PLAN: Acute closed displaced olecranon fracture status post surgical repair Bilateral obturator ring fractures Nondisplaced left-sided acetabular fracture Postoperative care per surgical team. Cough, non-productive - CXR today. No fevers however CBC count has been consistently elevated thought to be due to recenttrauma and pain. Hyperlipidemia Continue home rosuvastatin BPH Continue home Flomax COPD Tobacco use Continue home Breo Ellipta and recommended tobacco cessation. Peripheral arterial disease Patient reports that he has not been taking Plavix for over 1 year however was prescribed this medication after undergoing evaluation for PAD. CODE STATUS: Full DVT prophylaxis: Lovenox Disposition: From a medical standpoint, patient is ready for discharge however he is currently appealing through Medicare per case management. INTERVAL HISTORY: No significant acute events overnight. Continues to have pain to his left elbow as well as his pelvis which is largely unchanged. Denies any new chest discomfort, shortness of breath, nausea, vomiting, or abdominal pain. He has had a cough. OBJECTIVE: Current Vital Signs Temp: 98.9 F (37.2 C) BP: 87/54 Pulse: 106 O2 Device: Room Air O2 Flow Rate (L/min): 0 l/min Resp: 16 Pain Ratin (out of 10) Weight: 71.7 kg (158 lb) SpO2: 93 % Physical Exam Constitutional: He is oriented to person, place, and time and well-developed, well-nourished, and inno distress. No distress. HENT: Head: Normocephalic and atraumatic. Right Ear: External ear normal. Left Ear: External ear normal. Nose: Nose normal. Mouth/Throat: Oropharynx is clear and moist. No oropharyngeal exudate. Eyes: Conjunctivae and EOM are normal. Cardiovascular: Normal rate, regular rhythm, normal heart sounds and intact distal pulses. No murmur heard. Pulmonary/Chest: Effort normal and breath sounds normal. No respiratory distress. He has no wheezes.He has no rales. Abdominal: Soft. He exhibits no distension. There is no abdominal tenderness. Musculoskeletal: General: Tenderness and edema present. Comments: Splint to left elbow. Neurological: He is alert and oriented to person, place, and time. He exhibits normal muscle tone. Skin: Skin is warm and dry. No rash noted. He is not diaphoretic. No erythema. Nursing note and vitals reviewed. Diagnostics and Labs Relevant diagnostic, laboratory and radiological studies have been reviewed in the Electronic Medical Record. Izaiah Oviedo DO [facility] abier López PA - 01/09/2021 9:20 AM CDT ORTHOPAEDIC POST OPERATIVE PROGRESS NOTE January 09, 2021 POD # 4 Left Olecranon ORIF 01/05 Non-Op pubic rami/left acetabular fracture Patient of Dr. Fay S: Izaiah Yeung is a 65yr male recovering from surgery. Plan was to discharge today to SNF but patient appeals discharge saying that he is not ready. denies CP, SOB, N/V, Fever or Chills, numbness/tingling. Patient is participating in PT/OT. Pain is controlled on current regimen. Patient is pass ing flatus/having a BM. Patient is urinating without difficulty. O: Temp Readings from Last 1 Encounters: 01/08/21 98.3 F (36.8 C) BP Readings from Last 1 Encounters: 01/08/21 139/74 Pulse Readings from Last 1 Encounters: 01/08/21 94 Gen: Patient in bed , alert and orientated, no apparent distress, well appearing male Incision: Splint in place and intact to LUE. Dressing C/D/I. No signs of erythema or fluctuance. left ARM: Warm, well perfused. Palpable radial pulse present. Distal sensation intact to light touch along the median, ulnar and radial nerve distributions. Motor movements grossly intact with finger extension/flexion. BLE: No calf pain. Compartments soft. Distal sensation intact to light tough of all toes. Palpable DP pulse present bilaterally. Lab Results Component Value Date WBC 11.4 (H) 01/09/2021 NUCRBC 0 01/09/2021 RBC 3.64 (L) 01/09/2021 HEMOGLOBIN 11.0 (L) 01/09/2021 HEMATOCRIT 32.1 (L) 01/09/2021 MCV 88.2 01/09/2021 MCH 30.2 01/09/2021 MCHC 34.3 01/09/2021 RDW 12.1 04/07/2012 PLTCOUNT 218 01/09/2021 NEUTROPCT 67.1 01/09/2021 LYMPHSPCT 19.6 01/09/2021 MONOSPCT 10.7 01/09/2021 EOSPCT 1.3 01/09/2021 BASOPHILPCT 0.4 01/09/2021 Lab Results Component Value Date INR 1.0 (L) 01/04/2021 A/P: 1. s/p Left Olecranon ORIF 01/05 Non-Op pubic rami/left acetabular fracture DVT prophylaxis: Lovenox Pain control: Controlled on current regimen Wound care: Splint in place and intact. C/D/I PT/OT: continue; Activity: as tolerated; NWB LUE, WBAT BLE Disposition/planning: continue cares; Plan was to discharge to SNF today. Patient appealed discharge due to facility accommodations located in [place]. Patient putting in appeal and could be until noon tomorrow for decision. CM looking into other options in the meantime. Therapies recommending SNF upon discharge and should continue therapy as able. Follow up: 2 weeks with ARACELI and 6 weeks with Sumeet Rodriguez. Acute Blood loss Anemia: Expected Jabier BARRAZA-C Izaiah Mosley DO - 01/08/2021 2:28 PM CDT DAILY PROGRESS NOTE Brief History: Izaiah is a 65-year-old male with a past medical history of hyperlipidemia, hypertension, COPD, current tobacco use, gout, BPH, peripheral arterial disease, and prediabetes who was admitted to [facility] on 01/04/2021 for further evaluation and management after suffering a mild acutetrauma. He reportedly was walking his dog and got "caught up" on a leash and fell onto his left elbow and his right hip. He does report hitting his head however denied any loss of consciousness. He was initially admitted by trauma team however they have since been able to sign off after no evidence of severe trauma. Initial work-up on admission revealed left closed displaced olecranon fracture as well as bilateral obturator ring fractures and a nondisplaced left- sided acetabular fracture. Orthopedics was able to evaluate and recommended surgical fixation of left olecranon fracture and conservative management for obturator ring fractures and acetabular fracture. Internal medicine was consulted for medical comanagement. ASSESSMENT & PLAN: Acute closed displaced olecranon fracture status post surgical repair Bilateral obturator ring fractures Nondisplaced left-sided acetabular fracture Postoperative care per surgical team. Hyperlipidemia Continue home rosuvastatin BPH Continue home Flomax COPD Tobacco use Continue home Breo Ellipta and recommended tobacco cessation. Peripheral arterial disease Patient reports that he has not been taking Plavix for over 1 year however was prescribed this medication after undergoing evaluation for PAD. CODE STATUS: Full DVT prophylaxis: Lovenox Disposition: Was hopeful for DC today however facility not yet able to take. Likely tomorrow. INTERVAL HISTORY: NAEO. Still having pain to left elbow and pelvic region when ambulating. Denied any fevers, chills, nausea, vomiting, or abdominal pain. OBJECTIVE: Current Vital Signs Temp: 99.1 F (37.3 C) BP: 109/59 Pulse: 88 O2 Device: Room Air O2 Flow Rate (L/min): 2 l/min Resp: 19 Pain Ratin (out of 10) Weight: 71.7 kg (158 lb) SpO2: 91 % Physical Exam Physical Exam Constitutional: He is oriented to person, place, and time and well-developed, well-nourished, and inno distress. No distress. HENT: Head: Normocephalic and atraumatic. Right Ear: External ear normal. Left Ear: External ear normal. Nose: Nose normal. Mouth/Throat: Oropharynx is clear and moist. No oropharyngeal exudate. Eyes: Conjunctivae and EOM are normal. Cardiovascular: Normal rate, regular rhythm, normal heart sounds and intact distal pulses. No murmur heard. Pulmonary/Chest: Effort normal and breath sounds normal. No respiratory distress. He has no wheezes.He has no rales. Abdominal: Soft. He exhibits no distension. There is no abdominal tenderness. Musculoskeletal: General: Tenderness and edema present. Comments: Splint to left elbow. Neurological: He is alert and oriented to person, place, and time. He exhibits normal muscle tone. Skin: Skin is warm and dry. No rash noted. He is not diaphoretic. No erythema. Nursing note and vitals reviewed. Diagnostics and Labs Relevant diagnostic, laboratory and radiological studies have been reviewed in the Electronic Medical Record. Izaiah Oviedo DO [facility] Jabier Joyce PA - 01/08/2021 8:30 AM CDT ORTHOPAEDIC POST OPERATIVE PROGRESS NOTE January 08, 2021 POD # 3 Left Olecranon ORIF 01/05 Non-Op pubic rami/left acetabular fracture Patient of Dr. Fay S: Izaiah Yeung is a 65yr male recovering from surgery, denies CP, SOB, N/V, Fever or Chills,numbness/tingling. Patient is participating in PT/OT. Pain is controlled on current regimen. Patientis passing flatus/having a BM. Patient is urinating without difficulty. O: Temp Readings from Last 1 Encounters: 01/08/21 98 F (36.7 C) BP Readings from Last 1 Encounters: 01/08/21 150/74 Pulse Readings from Last 1 Encounters: 01/08/21 108 Gen: Patient in bed , alert and orientated, no apparent distress, well appearing male Incision: no drainage. Dressing C/D/I. No signs of erythema or fluctuance. left ARM: Warm, well perfused. Palpable radial pulse present. Distal sensation intact to light touch along the median, ulnar and radial nerve distributions. Motor movements grossly intact with finger and wrist extension/flexion. BLE: No calf pain. Compartments soft. Ankle ROM intact with dorsiflexion and plantarflexion Lab Results Component Value Date WBC 11.0 01/08/2021 NUCRBC 0 01/08/2021 RBC 3.57 (L) 01/08/2021 HEMOGLOBIN 10.7 (L) 01/08/2021 HEMATOCRIT 30.8 (L) 01/08/2021 MCV 86.3 01/08/2021 MCH 30.0 01/08/2021 MCHC 34.7 01/08/2021 RDW 12.1 04/07/2012 PLTCOUNT 185 01/08/2021 NEUTROPCT 68.2 01/08/2021 LYMPHSPCT 19.5 01/08/2021 MONOSPCT 10.2 01/08/2021 EOSPCT 0.9 01/08/2021 BASOPHILPCT 0.5 01/08/2021 Lab Results Component Value Date INR 1.0 (L) 01/04/2021 A/P: 1. s/p Left Olecranon ORIF: DVT prophylaxis: Lovenox Pain control: Controlled on current regimen Wound care: Dressing C/D/I with splint in place with no signs of breakdown. Keep in place until follow-up appointment PT/OT: continue; Activity: as tolerated; NWB LUE in sling, WBAT BLE Disposition/planning: continue cares; plan is to discharge to TCU/SNF today once cleared by medicine and therapies. Follow up: 2 weeks with ARACELI and 6 weeks with [facility]. Acute Blood loss Anemia: Expected Jabier BARRAZA-C unt, Izaiah, - 01/07/2021 8:35 AM CDT DAILY PROGRESS NOTE Brief History: Izaiah is a 65-year-old male with a past medical history of hyperlipidemia, hypertension, COPD, current tobacco use, gout, BPH, peripheral arterial disease, and prediabetes who was admitted to [facility] on 01/04/2021 for further evaluation and management after suffering a mild acutetrauma. He reportedly was walking his dog and got "caught up" on a leash and fell onto his left elbow and his right hip. He does report hitting his head however denied any loss of consciousness. He was initially admitted by trauma team however they have since been able to sign off after no evidence of severe trauma. Initial work-up on admission revealed left closed displaced olecranon fracture as well as bilateral obturator ring fractures and a nondisplaced left- sided acetabular fracture. Orthopedics was able to evaluate and recommended surgical fixation of left olecranon fracture and conservative management for obturator ring fractures and acetabular fracture. Internal medicine was consulted for medical comanagement. ASSESSMENT & PLAN: Acute closed displaced olecranon fracture status post surgical repair Bilateral obturator ring fractures Nondisplaced left-sided acetabular fracture Postoperative care per surgical team. Hyperlipidemia Continue home rosuvastatin BPH Continue home Flomax COPD Tobacco use Continue home Breo Ellipta and recommended tobacco cessation. Peripheral arterial disease Patient reports that he has not been taking Plavix for over 1 year however was prescribed this medication after undergoing evaluation for PAD. CODE STATUS: Full DVT prophylaxis: Lovenox Disposition: Undetermined at this time. INTERVAL HISTORY: No significant acute events overnight. Patient reports that he continues to have intermittent pain to his elbow however improved compared to the day prior. Denies numbness, tingling, or focal weakness. OBJECTIVE: Current Vital Signs Temp: 97.8 F (36.6 C) BP: 132/72 Pulse: 97 O2 Device: NC - no humidity O2 Flow Rate (L/min): 2 l/min Resp: 16 Pain Ratin (out of 10) Weight: 71.7 kg (158 lb) SpO2: 90 % Physical Exam Physical Exam Constitutional: He is oriented to person, place, and time and well-developed, well-nourished, and inno distress. No distress. HENT: Head: Normocephalic and atraumatic. Right Ear: External ear normal. Left Ear: External ear normal. Nose: Nose normal. Mouth/Throat: Oropharynx is clear and moist. No oropharyngeal exudate. Eyes: Conjunctivae and EOM are normal. Cardiovascular: Normal rate, regular rhythm, normal heart sounds and intact distal pulses. No murmur heard. Pulmonary/Chest: Effort normal and breath sounds normal. No respiratory distress. He has no wheezes.He has no rales. Abdominal: Soft. He exhibits no distension. There is no abdominal tenderness. Musculoskeletal: General: Tenderness and edema present. Comments: Splint to left elbow. Neurological: He is alert and oriented to person, place, and time. He exhibits normal muscle tone. Skin: Skin is warm and dry. No rash noted. He is not diaphoretic. No erythema. Nursing note and vitals reviewed. Diagnostics and Labs Relevant diagnostic, laboratory and radiological studies have been reviewed in the Electronic Medical Record. Izaiah Oviedo DO [facility] Lise Carter APRN-PARKER - 01/07/2021 8:09 AM CDT ORTHOPEDIC POST OPERATIVE PROGRESS NOTE January 07, 2021 2 Days Post-Op Status Post: Procedure(s): OPEN REDUCTION AND INTERNAL FIXATION OF LEFT OLECRANON FRACTURE Patient of Dr. Fay S: Izaiah Felisa Antonio is a 65yr male recovering from surgery, denies CP, SOB, N/V, Fever or Chills,numbness/tingling. Reports a good appetite. Pain: well controlled on current meds BM noted since surgery. Is passing flatus. Urinating without difficulty. O: Temp Readings from Last 1 Encounters: 01/07/21 97.8 F (36.6 C) BP Readings from Last 1 Encounters: 01/07/21 132/72 Pulse Readings from Last 1 Encounters: 01/07/21 97 Gen: patient resting comfortably in bed, alert and orientated, no apparent distress Incision: no drainage. Dressing C/D/I. Splint intact bilateral LEGS: Warm, well perfused. Brisk capillary refill noted. Sensation intact to light touch. Homans negative, no calf pain bilaterally. Compartments soft and compressible. DP and PT pulsesare palpable. Motor grossly intact, able to PF/DF ankle and wiggle toes. left WRIST: Splint intact. Fingers are warm, well perfused. Brisk capillary refill noted. Sensation intact to light touch. Able to abduct and adduct all fingers without difficult. Able to flex andextend the IP of the thumb and the DIP of the index and small fingers without difficulty. Lab Results Component Value Date WBC 12.1 (H) 01/07/2021 NUCRBC 0 01/07/2021 RBC 3.48 (L) 01/07/2021 HEMOGLOBIN 10.7 (L) 01/07/2021 HEMATOCRIT 30.5 (L) 01/07/2021 MCV 87.6 01/07/2021 MCH 30.7 01/07/2021 MCHC 35.1 01/07/2021 RDW 12.1 04/07/2012 PLTCOUNT 175 01/07/2021 NEUTROPCT 64.9 01/07/2021 LYMPHSPCT 23.5 01/07/2021 MONOSPCT 10.3 01/07/2021 EOSPCT 0.4 01/07/2021 BASOPHILPCT 0.2 01/07/2021 Lab Results Component Value Date INR 1.0 (L) 01/04/2021 A/P: 1. s/p Left Olecranon ORIF: DVT prophylaxis: Lovenox Pain control: continue same Wound care: leave splint intact until follow up appt PT/OT: continue; NWB LUE Activity: as tolerated; Disposition/planning: continue cares; Follow up: 2 weeks with ARACELI and [address] Fay 2. Left Pubic Ramus and Acetabulum Fractures Activity: WBAT BLE 3. Acute Blood loss Anemia: Expected MAYCO [facility] Pager #[phone] Shawn Rodriguez MD - 01/06/2021 8:08 AM CDT ORTHO PROGRESS NOTE Assessment/Plan: 65M POD1 s/p L olecranon ORIF. Also with left pubic ramus and acetabulum fractures. - NWB LUE - WBAT BLE - Pain control with oral and/or IV medications - DVT Prophylaxis: lovenox - PT/OT - Postoperative anemia: expected, stable, follow H/H - IM primary - F/u with Ortho ARACELI 2 weeks, Dr. Fay 6 weeks Subjective: Patient doing well, reports mild pain at operative site when using arm Denies numbness/tingling Has not ambulated No f/c, CP, SOB, abd pain Voiding per self, +flatus, -bm Objective: Vitals: 01/06/21 0715 BP: 151/127 Pulse: 100 Resp: 18 Temp: 98.9 F (37.2 C) SpO2: (!) 87% Physical Exam: Gen: NAD, AOx3 LUE: Dressing clean, dry, and intact. TTP about the surgical site, non-TTP proximally or distally. SILT distally. Able to perform thumbs up, a-ok, cross fingers. Palpable pulses distally, limb warm andwell perfused. Labs: Lab Results Component Value Date HEMOGLOBIN 10.9 (L) 01/06/2021 Imaging: - Intraoperative imaging satisfactory alignment and fixation of left olecranon fracture. Shawn Rodriguez MD Orthopedic Surgery, [id number] signed by Efrain Fay MD at 01/07/2021 4:04 PM CDT Associated attestation - Efrain Fay MD - 01/07/2021 4:04 PM CDTI discussed the patient with the resident. I verified in the medical record all resident documentation/findings, including history, physical exam, and medical decision making, and I agree with the resident's documentation.Izaiah Oviedo, DO - 01/06/2021 7:19 AM CDT DAILY PROGRESS NOTE Brief History: Izaiah is a 65-year-old male with a past medical history of hyperlipidemia, hypertension, COPD, current tobacco use, gout, BPH, peripheral arterial disease, and prediabetes who was admitted to [facility] on 01/04/2021 for further evaluation and management after suffering a mild acutetrauma. He reportedly was walking his dog and got "caught up" on a leash and fell onto his left elbow and his right hip. He does report hitting his head however denied any loss of consciousness. He was initially admitted by trauma team however they have since been able to sign off after no evidence of severe trauma. Initial work-up on admission revealed left closed displaced olecranon fracture as well as bilateral obturator ring fractures and a nondisplaced left- sided acetabular fracture. Orthopedics was able to evaluate and recommended surgical fixation of left olecranon fracture and conservative management for obturator ring fractures and acetabular fracture. Internal medicine was consulted for medical comanagement. ASSESSMENT & PLAN: Acute closed displaced olecranon fracture status post surgical repair Bilateral obturator ring fractures Nondisplaced left-sided acetabular fracture Postoperative care per surgical team. Hyperlipidemia Continue home rosuvastatin BPH Continue home Flomax COPD Tobacco use Continue home Breo Ellipta and recommended tobacco cessation. Peripheral arterial disease Patient reports that he has not been taking Plavix for over 1 year however was prescribed this medication after undergoing evaluation for PAD. CODE STATUS: Full DVT prophylaxis: Lovenox Disposition: Undetermined at this time. INTERVAL HISTORY: No significant acute events overnight. Patient reports that he continues to have some pain to his left elbow however this is significantly improved. Otherwise he reports feeling well. No chest discomfort, shortness of breath, fevers, or chills. No nausea, vomiting, or abdominal pain. OBJECTIVE: Current Vital Signs Temp: 98.9 F (37.2 C) BP: 151/127 Pulse: 100 O2 Device: Room Air O2 Flow Rate (L/min): 2 l/min Resp: 18 Pain Ratin (out of 10) Weight: 71.7 kg (158 lb) SpO2: (!) 87 % Physical Exam Physical Exam Constitutional: He is oriented to person, place, and time and well-developed, well-nourished, and inno distress. No distress. HENT: Head: Normocephalic and atraumatic. Right Ear: External ear normal. Left Ear: External ear normal. Nose: Nose normal. Mouth/Throat: Oropharynx is clear and moist. No oropharyngeal exudate. Eyes: Conjunctivae and EOM are normal. Cardiovascular: Normal rate, regular rhythm, normal heart sounds and intact distal pulses. No murmur heard. Pulmonary/Chest: Effort normal and breath sounds normal. No respiratory distress. He has no wheezes.He has no rales. Abdominal: Soft. He exhibits no distension. There is no abdominal tenderness. Musculoskeletal: General: Tenderness and edema present. Comments: Splint to left elbow. Neurological: He is alert and oriented to person, place, and time. He exhibits normal muscle tone. Skin: Skin is warm and dry. No rash noted. He is not diaphoretic. No erythema. Nursing note and vitals reviewed. Diagnostics and Labs Relevant diagnostic, laboratory and radiological studies have been reviewed in the Electronic Medical Record. Izaiah Oviedo DO [facility] O CESARTClive Morrell PHARM D - 01/05/2021 5:01 PM CDT 01/05/2021 5:01 PM CDT Patient was seen by pharmacy for medication reconciliation. Home medications have been reconciled and updated on the home medications list to match the patient's home usage. Notes: Patient reports he is not taking Clopidogrel (Plavix). He takes Advair PRN for his "hack attacks." He is no longer taking Polytrim eye drops. Prior to Admission Medications Prescriptions Last Dose Informant Patient Reported? Taking? albuterol-ipratropium (DUO-NEB) 2.5-0.5 mg/3 mL inhalation solution Greater than 1 Month at PRN SelfNo Yes Sig: Inhale 1 unit-dose (3 mL) by nebulization Every 12 hours as needed for bronchospasm, shortness of breath or wheezing atenolol (TENORMIN) 50 mg tablet 01/04/2021 at am Self No Yes Sig: Take 1 tablet (50 mg) by mouth 1 time per day celecoxib (CELEBREX) 200 mg capsule 01/04/2021 at am Self No Yes Sig: Take 1 capsule (200 mg) by mouth 1 time a day with breakfast clopidogrel (PLAVIX) 75 mg tablet Not Taking at Unknown time Self No No Sig: Take 1 tablet (75 mg) by mouth 1 time per day Patient not taking: Reported on 01/05/2021 finasteride (PROSCAR) 5 MG tablet 01/04/2021 at am Self No Yes Sig: Take 1 tablet (5 mg) by mouth 1 time per day fluticasone-salmeterol (ADVAIR DISKUS) 250-50 mcg/dose discus Past Month at Unknown time Self No Yes Sig: Inhale 1 puff orally 2 times a day RINSE MOUTH AFTER USE. Patient taking differently: Inhale 1 puff orally 2 times a day as needed for other (Specify) ("hack attack") RINSE MOUTH AFTER USE. gabapentin (NEURONTIN) 300 mg capsule 01/04/2021 at am Self No Yes Sig: TAKE 1 CAPSULE (300 MG) BY MOUTH 2 TIMES A DAY Patient taking differently: Take 300 mg by mouth 1 time per day lisinopril-hydroCHLOROthiazide (PRINZIDE, ZESTORETIC) 20-25 mg tablet 01/04/2021 at am Self No Yes Sig: Take 1 tablet by mouth 1 time per day rosuvastatin (CRESTOR) 10 mg tablet 01/04/2021 at pm Self No Yes Sig: Take 1 tablet (10 mg) by mouth every night at bedtime tamsulosin (FLOMAX) 0.4 mg capsule 01/04/2021 at pm Self No Yes Sig: Take 1 capsule (0.4 mg) by mouth every night at bedtime trimethoprim-polymyxin B (POLYTRIM) ophthalmic solution Not Taking at Unknown time Self No No Sig: Place 1 drop into the right eye 4 times a day Patient not taking: Reported on 01/05/2021 vitamin D3, cholecalciferol, 50 mcg (2000 unit) tablet 01/04/2021 at am Self No Yes Sig: Take 1 tablet (50 mcg) by mouth 1 time per day Facility-Administered Medications: None Clive Morrell, PHARM D frain Fay MD - 01/05/2021 10:06 AM CDT ORTHO progress note. Izaiah Yeung is a 65yr old male admitted on 01/04/2021 8:20 PM Day of Surgery Status Post: Procedure(s): OPEN REDUCTION AND INTERNAL FIXATION OF LEFT OLECRANON FRACTURE Patient doing ok, complains of mild pain with current meds. The patient denies nausea. Lab Results Component Value Date HEMOGLOBIN 13.1 (L) 01/05/2021 Current Vital Signs Temp: 97.7 F (36.5 C) BP: 135/76 Pulse: 106 O2 Device: Room Air Resp: 18 Pain Ratin (out of 10) Weight: 71.7 kg (158 lb) SpO2: 100 % Gen - NAD, A/O x 3 Left UE - splinted, SILT m/r/u, AIN/PIN grossly intact, hand warm/well perfused Plan: Ortho Pre-Op Note Dx: Stable pelvic ring fracture, displaced left olecranon fracture Plan: Surgical repair of left olecranon fracture and any other indicated procedures Risks/Benefits/Alternatives to surgery and post-op rehab plan were discussed with the patient. Risksinclude but not limited to: Bleeding, possibility of transfusion, infection, injury to associated structures, DVT/PE, failure of procedure, reoperation, implant failure, persistent joint pain or stiffness. Loss of life/limb was discussed with the patient. All questions answered, no guarantees implied or given Chong Fay MD Diana Gutierrez APRN-VAN CDL DRIVER - 01/05/2021 10:01 AM CDT Trauma Tertiary Exam Izaiah Yeung is a 65yr old male admitted on 01/04/2021. Mechanism of injury: Ground level fall Loss of consciousness: Denies Subjective: No acute events overnight. Endorses pain to right pelvis and left arm Denies SOB on RA. Tolerating NPO diet. Denies N/V/abdominal pain. BM. Is passing flatus. Urinating without difficulty. Denies numbness, tingling, weakness. Denies dizziness or vision changes. Denies any new areas of injury. Objective: Current Vital Signs Temp: 97.7 F (36.5 C) BP: 135/76 Pulse: 106 O2 Device: Room Air Resp: 18 Pain Ratin (out of 10) Weight: 71.7 kg (158 lb) SpO2: 100 % Vital Signs Min/Max (last 24 hours) Flowsheet Row Name Min Max Temp 97.7 F (36.5 C) 98.7 F (37.1 C) BP: Systolic 75 137 BP: Diastolic 53 79 Pulse 93 112 Resp 16 23 SpO2 90 % 100 % MAP (mm Hg) 60 mm Hg 95 mm Hg I/O Date 01/04/21 07 - 01/05/21 0659 01/05/21699 - 01/06/21 0659 Shift 0040-1137 3712-6906 24 Hour Total 3543-7754 3589-0725 24 Hour Total INTAKE Shift Total OUTPUT Urine 150 150 Urine 150 150 Stool Unmeasured Stool Occurrence 0 x 0 x Shift Total 150 150 NET -150 -150 Weight (kg) 71.7 71.7 71.7 71.7 71.7 Physical Exam Neuro Exam: Alert and oriented, moves all extremities. GCS 15 Strength symmetrical, no sensory deficits, cranial nerves intact HEENT: Head - No lacerations or abrasions. Midface stable to palpation Eyes - PERRL, conjunctiva / corneas normal, EOM intact Ears - canals without blood or CSF drainage, external ears without lacerations Nose - septum midline, no crepitus with motion Throat - oral mucosa and tongue without lacerations, teeth in place Neck: No midline pain with palpation or active ROM. Endorses referred pain to right groin with chin to chest flexion without neck pain. No lacerations. Chest / Back: External Exam - no air, crepitus or pain with palpation. No abrasion, no contusions. Lungs - breath sounds clear, symmetrical. No wheezes, rales, or consolidation Cardiac - rhythm regular, rate normal, no murmur Back - no tenderness, abrasions, vertebral step-off or pain with palpation Abdomen: Appearance - nondistended, no lacerations or ecchymosis Palpation - soft, no tenderness, no organomegaly or peritoneal signs Upper Extremities: RUE: Nontender to palpation. Painless ROM. Skin intact. CMS grossly intact. No evidence of trauma. LUE: Splint in place. Dressing CDI. Tenderness to elbow region otherwise nontender to palpation. Painless ROM to shoulder, wrist and fingers. Skin intact. CMS grossly intact. Lower Extremities: RLE: Nontender to palpation. Pain at hip/groin with ROM otherwise painless ROM. Skin intact. CMS grossly intact. No evidence of trauma. LLE: Nontender to palpation. Pain at hip/groin with ROM otherwise painless ROM. Skin intact. CMS grossly intact. No evidence of trauma. Today's Labs: Labs (Last day) 01/04/212225 - 01/04/212222 BLOOD BANK 01/04/21222501/04/212222 BLOOD BANK ABO Type B B Rh Type Negative Negative Antibody Screen Negative Expiration Date 01/07/2021 23:59 01/05/21615 - 01/04/212222 CBC 01/05/2161501/04/212222 CBC WBC 4.0-11.0 (K/uL) 13.2 20.4 RBC 4.40-5.80 (M/uL) 4.32 4.55 Hemoglobin 13.5-17.5 (g/dL) 13.1 13.9 Hematocrit 40.0-50.0 (%) 37.3 39.3 MCV 80.0-98.0 (fL) 86.3 86.4 MCH 25.5-34.0 (pg) 30.3 30.5 MCHC 31.5-36.5 (g/dL) 35.1 35.4 RDW-CV 11.5-15.5 (%) 12.1 12.1 RDW-SD 35.5-50.0 (fl) 38.5 38.5 Platelet Count 140-400 (K/uL) 218 223 MPV 8.5-12.0 (fL) 10.2 10.2 01/05/21615 - 01/04/212222 CHEMISTRY 01/05/2161501/04/21222201/04/212222 CHEMISTRY Glucose 70-100 (mg/dL) 120 89 Sodium 135-145 (meq/L) 130 132 Potassium 3.5-5.3 (meq/L) 3.9 3.6 Chloride 99-110 (meq/L) 99 99 CO2 20-29 (meq/L) 23 20 Anion Gap with K 6-20 (meq/L) 12 17 BUN 6-22 (mg/dL) 28 23 Creatinine 0.80-1.30 (mg/dL) 1.09 1.09 BUN/Creatinine Ratio 10.0-25.0 25.7 21.1 Calcium 8.5-10.5 (mg/dL) 8.6 8.6 Corrected Calcium 8.5-10.5 (mg/dL) 9.1 Bilirubin Total 0.2-1.2 (mg/dL) 0.4 Alkaline Phosphatase 30-150 (U/L) 66 ALT - SGPT 0-55 (U/L) 38 AST - SGOT 0-35 (U/L) 23 Protein Total 6.0-8.2 (g/dL) 6.5 Albumin 3.5-5.0 (g/dL) 3.4 Lactic Acid 0.5-2.2 (mmol/L) 2.6 eGFR >=60 (mL/min/1.73m2) 82 82 eGFR Non- >=60 (mL/min/1.73m2) 67 67 01/05/21 0616 - 01/04/21 2223 DIFFERENTIAL 01/05/21 0616 01/04/21 2223 DIFFERENTIAL Seg Neut Absolute 1.8-8.0 (K/uL) 9.4 16.3 Lymphocytes Absolute 0.8-4.1 (K/uL) 2.3 2.6 Monocytes Absolute 0.0-1.0 (K/uL) 1.4 1.2 Eosinophils Absolute 0.0-0.7 (K/uL) 0.0 0.1 Basophil Absolute 0.0-0.2 (K/uL) 0.0 0.1 Immature Granulocyte Absolute 0.00-0.06 (K/uL) 0.08 0.23 Neutrophils Percent (%) 71.1 79.8 Neutrophils Abs. (Segs and Bands) (/uL) 9,400 16,300 Lymphocytes Percent (%) 17.2 12.6 Monocytes Percent (%) 10.6 5.8 Immature Granulocyte Percent (%) 0.6 1.1 Eosinophils Percent (%) 0.2 0.4 Basophil Percent (%) 0.3 0.3 Nucleated RBC (/100 WBC's) 0 0 01/04/213 - 01/04/212222 GENERAL COAGULATION 01/04/212222 GENERAL COAGULATION Protime 12.0-14.5 (secs) 13.1 INR 2.0-3.5 1.0 01/05/21 0043 - 01/05/2142 URINALYSIS 01/05/213 01/05/2142 URINALYSIS Color Urine Tanya, Dark Yellow, Straw, Yellow, Colorless Yellow Clarity Urine Clear Clear Specific [facility] 1.002-1.030 1.031 Glucose Urine Negative Negative Bilirubin Urine Negative Negative Ketones Urine Negative, 5 mg/dL, 10 mg/dL Negative Blood Urine Negative Small (1+) PH Urine 5.0, 5.5, 6.0, 6.5, 7.0, 7.5, 8.0 5.5 Protein Urine Negative 30 mg/dL Nitrite Negative Negative Leukocyte Esterase Urine Negative Negative Urobilinogen < 2 mg/dL < 2 mg/dL WBC Urine Negative, 0-5 /hpf 0-5 /hpf RBC Urine Negative, 0-2 /hpf 3-5 /hpf Squamous Epithelial Cells Negative, Occ (0-10) /lpf, Few (11-20) /lpf Occ (0- 10) /lpf Bacteria Negative Negative Hyaline Cast 0-2 /lpf 3-5 /lpf 01/05/21 0616 - 01/04/212222 OTHER 01/05/21 0616 01/04/212222 OTHER [age]Years) [age] ETOH: Not obtained UDS: Not obtained IMAGING RESULTS: XR Elbow / Humerus Left: FINDINGS: Demineralization. Comminuted and significantly displaced fracture of the olecranon with intra-articular extension and tiny butterfly fragments and loose intra-articular fragments. Large joint effusion.Remaining osseous structures intact. Severe glenohumeral osteoarthritis. Potential loose intra-articular bodies in the axillary fossa. IMPRESSION: Significantly displaced intra-articular fracture involving the olecranon with joint effusion and loose intra-articular bodies. Orthopedic follow-up necessary. XR Pelvis: IMPRESSION: Right superior/inferior pubic ramus fractures extending through the pubic symphysis with questionable left inferior pubic ramus fracture demonstrating more chronic features. CT would further delineate these findings. Orthopedic follow-up recommended. CT Abd / Pelvis: IMPRESSION: Bilateral obturator ring fractures with involvement of the left acetabulum ventrally with intra-articular extension. Stranding and blood products adjacent to the fracture sites with extension into the prevesical space. Orthopedic follow-up necessary. Severe hepatic steatosis. Colonic diverticulosis. Prostatomegaly which most often represents benign prostatic hypertrophy. However, correlate with exam and markers to exclude malignancy. CT Extremity Upper Left: FINDINGS: Comminuted and displaced intra-articular fracture involving the ulnar/olecranon with multiple tiny butterfly fragments and loose intra-articular bodies. Large joint effusion. Subluxation of the radiocapitellar and ulnar trochlear articulations. Significant soft tissue edema/hematoma along the dorsal elbow and proximal forearm. IMPRESSION: Ulnar/olecranon fracture. Orthopedic follow-up necessary. Correlate for neurovascular injury. CT C-spine: IMPRESSION: 1. No acute fracture or malalignment of the cervical spine. 2. Stable chronic compression deformity of C7. Assessment: Izaiah Yeung is a 65yr old male admitted on 01/04/21 following a ground level fall. Current known injuries: - Bilateral obturator ring fractures with involvement of the left acetabulum ventrally with intra-articular extension - Left olecranon fracture New findings: None Incidental findings: Severe hepatic steatosis Colonic diverticulosis Prostatomegaly Last 24 hours: VSS. Pain managed. Remains hemodynamically stable overnight. Neuro intact. Plan: - Imaging needed: CT c-spine - Labs needed: CBC w/diff, BMP - Wound care plan(s): n/a - Antibiotics: n/a Tetanus: n/a - Soto: n/a - DVT prophylaxis: SCDs. Chemical prophylaxis on hold due to surgery today - Diet: NPO - Activity: Bedrest C/T/L-Spine status: cleared - Weight-bearing status: NWB BLE, NWB LUE - Therapy: PT, OT - Incentive spirometry/pulmonary toilet - Pain plan: acetaminophen, flexeril, dilaudid, oxycodone PRN - Bowel regimen Consulting Team(s) Plan and/or Follow-up Recommendations: Orthopedics: OR today 01/05 Internal Medicine: assist with management of co-morbidities Discharge plan: Will continue inpatient management. ADDENDUM: No additional injuries identified outside of isolated orthopedic injuries. TRACS will signoff at this time to Internal Medicine as primary. Tertiary Survey Complete Yes C-Spine "Cleared" (Radiographically and Clinically): Yes Diana Norton APRN, CNP [facility] documented in this encounter H&P Notes Lea Stanton MD - 01/04/2021 11:[address] [facility] TRACS Minor Trauma Note Date: 01/04/2021 Name: Izaiah Yeung History: Mechanism of Injury: GLF History of Injury: Izaiah Yeung is a 65yr male that presents as a minor trauma after a GLF. He states he got caught up on a dog leash and fell onto his left elbow and right hip. He reports hitting his head but denies any LOC. His pain complaints are left elbow pain and swelling as well as bilateral groin pain. Denies chest pain, SOB, abdominal pain, nausea, vomiting, fever, chills, numbness, headaches. He is on Plavix. Past Medical History: Diagnosis Date BPH (benign prostatic hyperplasia) COPD (chronic obstructive pulmonary disease) (HCC) Gout Hyperlipidemia Hypertension Inflammatory arthritis uses indomethacin rarely, generally one or two doses will suffice Nicotine addiction Trigger finger, right 04/2011 Treated with steroid injection Past Surgical History: Procedure Laterality Date ENDARTERECTOMY Bilateral 12/03/2019 Procedure: RIGHT FEMORAL ENDARTERECTOMY AND ANGIOPLASTY, ANGIOGRAM, BILATERAL ILIAC ARTERY STENTS;; Surgeon: Kareem Schwartz DO RECTAL FISSURECTOMY TEETH EXTRACTION WRIST FUSION Right 03/01/2019 Procedure: RIGHT WRIST PROXIMAL ROW CARPECTOMY, CAPITATE RESURFACING, PARTIAL DENERVATION, ULNARCARPAL JOINT LOOSE BODIES REMOVAL, Extensor tenosynovectomy;; Surgeon: Rafiq Peace MD (Not in a hospital admission) Allergies Allergen Reactions Atorvastatin Other (Specify in Comments) myalgias Social History Tobacco Use Smoking status: Current Every Day Smoker Packs/day: 2.00 Years: 50.00 Pack years: 100.00 Types: Cigarettes Start date: 05/27/1968 Smokeless tobacco: Never Used Tobacco comment: "I'll decide that someday" Substance Use Topics Alcohol use: Yes Alcohol/week: 22.0 standard drinks Types: 20 Cans of beer, 2 Shots of liquor per week Comment: either beer or rum Family History Problem Relation Age of Onset Hypertension Mother Heart Mother CABG Other Mother Paget's disease of the femur Hypertension Father Heart Father CABG Emphysema Father Other Sister respiratory disease? Suicide Brother No Known Problems Maternal Grandmother No Known Problems Maternal Grandfather No Known Problems Paternal Grandmother No Known Problems Paternal Grandfather Chronic Obstructive Pulmonary Disease Brother No Known Problems Brother No Known Problems Son No Known Problems Son Colorectal Cancer Neg Hx Lung Cancer Neg Hx Prostate Cancer Neg Hx Objective: Primary Survey: Airway: Intact. Able to vocalize. C-spine immobilized. Breathing: Intact. Per self. No distress. Breath sounds equal bilaterally. No tracheal deviation. Neck veins non-distended. Chest wall without palpable deformities. Circulation: Intact. Extremities warm. Secondary Survey: General: 65yr y.o. male in no distress. GCS 15 Eyes 4 (1- doesn't open, 2- opens to painful stimuli, 3- opens to voice, 4- opens spontaneously) Verbal 5 (1- no sounds, 2- incomprehensible, 3- inappropriate words, 4- confused/disoriented, 5- oriented/converses normally) Motor 6 (1- no movement 2- extension to painful stimuli 3- flexion to painful stimuli, 4- withdrawal to painful stimuli 5- purposeful movement to painful stimulus 6- obeys commands) Vitals: Hemodynamically stable with vitals Blood pressure 112/75, pulse 105, temperature 97.9 F (36.6 C), resp. rate 17, weight 72.6 kg (160 lb), SpO2 95 %. Skin: [place], dry and warm. No pallor, cyanosis or jaundice. Eyes: Pupils are 3 and equal, round and reactive to light. Extraocular movements are intact. No periorbital ecchymosis. Ears: Tympanic membranes are clear. No hemotympanum. No blood in the external auditory canal. No bruising over the mastoid process. Face: Face appears atraumatic. Facial bones are stable. Teeth intact, mandible stable. Head: No palpable skull fractures. No scalp lacerations. Neck: No cervical spine pain on palpation. No palpable C-spine abnormalities. No jugular venous distention or tracheal deviation. No subcutaneous air. Chest: Atraumatic and stable. No sternal tenderness. No tenderness to palpation of ribs. Lungs: Clear to auscultation bilaterally Heart: Regular rate and rhythm, S1, S2 normal, no murmur, click, rub or gallop Abdomen: No bruising or other obvious external trauma to the abdomen or flanks. Soft, non-distended, patient has tenderness in groin when the abdomen in palpated. Pelvis: No obvious external pelvic or peroneal trauma. Lateral hips are non- tender to palpation, has more pain in groind Upper Ext: Pain and swelling around left elbow. No motor or sensory deficits. Lower Ext: No obvious external trauma or deformities. Palpable and symmetric pedal pulses. Good range of motion and strength. No motor or sensory deficits. Neurologic: No focal motor or sensory neurologic deficits. Back: Unable to access, patient refuses to roll over due to significant back pain. Lab: Recent Results (from the past 120 hour(s)) COMPREHENSIVE METABOLIC PANEL Result Value Ref Range Glucose 89 70 - 100 mg/dL BUN 23 (H) 6 - 22 mg/dL Creatinine 1.09 0.80 - 1.30 mg/dL BUN/Creatinine Ratio 21.1 10.0 - 25.0 Sodium 132 (L) 135 - 145 meq/L Potassium 3.6 3.5 - 5.3 meq/L Chloride 99 99 - 110 meq/L CO2 20 20 - 29 meq/L Anion Gap with K 17 6 - 20 meq/L Calcium 8.6 8.5 - 10.5 mg/dL Protein Total 6.5 6.0 - 8.2 g/dL Albumin 3.4 (L) 3.5 - 5.0 g/dL Alkaline Phosphatase 66 30 - 150 U/L AST - SGOT 23 0 - 35 U/L ALT - SGPT 38 0 - 55 U/L Bilirubin Total 0.4 0.2 - 1.2 mg/dL Corrected Calcium 9.1 8.5 - 10.5 mg/dL Age 65 Years eGFR Non- 67 >=60 mL/min/1.73m2 eGFR 82 >=60 mL/min/1.73m2 TYPE AND SCREEN Result Value Ref Range ABO Type B Rh Type Negative PROTIME/INR Result Value Ref Range Protime 13.1 12.0 - 14.5 secs INR 1.0 (L) 2.0 - 3.5 LACTIC ACID Result Value Ref Range Lactic Acid 2.6 (H) 0.5 - 2.2 mmol/L LAB ONLY-COMPLETE BLOOD COUNT WITH DIFFERENTIAL Result Value Ref Range WBC 20.4 (H) 4.0 - 11.0 K/uL RBC 4.55 4.40 - 5.80 M/uL Hemoglobin 13.9 13.5 - 17.5 g/dL Hematocrit 39.3 (L) 40.0 - 50.0 % MCV 86.4 80.0 - 98.0 fL MCH 30.5 25.5 - 34.0 pg MCHC 35.4 31.5 - 36.5 g/dL RDW-CV 12.1 11.5 - 15.5 % RDW-SD 38.5 35.5 - 50.0 fl Platelet Count 223 140 - 400 K/uL MPV 10.2 8.5 - 12.0 fL Seg Neut Absolute 16.3 (H) 1.8 - 8.0 K/uL Lymphocytes Absolute 2.6 0.8 - 4.1 K/uL Monocytes Absolute 1.2 (H) 0.0 - 1.0 K/uL Eosinophils Absolute 0.1 0.0 - 0.7 K/uL Basophil Absolute 0.1 0.0 - 0.2 K/uL Immature Granulocyte Absolute 0.23 (H) 0.00 - 0.06 K/uL Neutrophils Abs. (Segs and Bands) 16,300 /uL Neutrophils Percent 79.8 % Lymphocytes Percent 12.6 % Monocytes Percent 5.8 % Immature Granulocyte Percent 1.1 % Eosinophils Percent 0.4 % Basophil Percent 0.3 % Nucleated RBC 0 /100 WBC's LAB ONLY-ABORH Result Value Ref Range ABO Type B Rh Type Negative ROS: - All 12 ROS reviewed and negative except what is mentioned in HPI Imaging: Xray Elbow/Humerus MPRESSION: Significantly displaced intra-articular fracture involving the olecranon with joint effusion and loose intra-articular bodies. Orthopedic follow-up necessary. Pelvic XR: IMPRESSION: Right superior/inferior pubic ramus fractures extending through the pubic symphysis with questionable left inferior pubic ramus fracture demonstrating more chronic features. CT would further delineate these findings. Orthopedic follow-up recommended. CT Abdomen/Pelvis: Pending CT Upper Extremity: Pending ER Course: Initial evaluation and workup by ER physician. Primary and secondary survey was completed by the trauma service. Patient was taken to CT scanner. Patient remained stable and was transferred to the medical surgical floor. Assessment: Izaiah Yeung is a 65yr old male admitted on 01/04/2021 as a minor trauma s/p GLF. TRACS consulted to admit these isolated orthopedic fractures. Injuries: - Right superior/inferior pubic ramus fractures extending through the pubic symphysis with questionable left inferior pubic ramus fracture - Significantly displaced intra-articular fracture Plan: - Admit to Medical Surgical Floor - Imaging needed: None - Labs needed: AM Repeat Labs - Antibiotics: Not indicated Tetanus: Not indicated - Soto: Not indicated - Diet: NPO @MN - IVF resucitation - Activity: Bedrest - Therapy: Order PT and OT once off bedrest. - Incentive spirometry/pulmonary toilet - Pain plan: PO/IV pain medications - Bowel regimen - DVT prophylaxis: SCDs/Lovenox Consulting Team(s) Plan and/or Follow-up Recommendations: Orthopedics: Isolated orthopedic injuries. Possible surgery tomorrow for elbow. TRACS likely able to sign patient over to Ortho/Medicine team in the morning eLa Stanton MD General Surgery Resident [id number] Associated attestation - Kai Nevarez MD - 01/05/2021 12:22 AM CDT I discussed the patient with the resident and personally interviewed and examined the patient. I verified in the medical record all resident documentation/findings, including history, physical exam, and medical decision making, and I agree with the resident's documentation.documented in this encounter Consult Notes Benny Murrell MD - 01/05/2021 12:23 AM CDT Orthopedic Consult Note HPI: Patient is a pleasant 65-year-old male with a past medical history significant for hypertension, COPD, hyperlipidemia, history of endarterectomy last month of the right femoral artery. He presented to the emergency department from outside facility after sustaining a falling injury. States that he was caught up in a dog leash and fell awkwardly on his right hip and left elbow. He says he felt immediate pain and was not able to ambulate. He describes acute pain in his groin as well as pain inthe left elbow. On arrival at the emergency department he was found to have a left olecranon fracture transverse in nature and bilateral superior and inferior pubic rami fractures as well as a left intra-articular fracture with minimal displacement. He was neurovascularly intact on admission. CT ofthe pelvis and left elbow was obtained. Orthopedic surgery was consulted for possible operative treatment of his fractures. Patient is normally very active and ambulatory at baseline. Objective: Alert and oriented no apparent distress RLE: Pain with hip ROM and with pressure at ASIS BL No breaks in the skin/lacerations. Has full ROM in foot, ankle SLIT s,s,dp,spt. Able to flex/extend big toe, plantarflexes/dorsiflexes. Toes are warm, well-perfused. DP/PT pulses palpable. LLE: Pain with hip ROM and with pressure at ASIS BL No breaks in the skin/lacerations. Has full ROM in foot, ankle, knee and hip without pain SLIT s,s,dp,spt. Able to flex/extend big toe, plantarflexes/dorsiflexes. Toes are warm, well-perfused. DP/PT pulses palpable. RUE: No breaks in the skin/lacerations. Has full ROM at the fingers, wrist, elbow and shoulder without pain Sensation intact to light touch throughout radial/ulnar/median nerve distributions. Gives thumbs-up, makes OK sign, makes a fist. Fingers are warm, well-perfused. Radial pulse 2+. LUE Extensive Swelling at the elbow. No open wounds. Extensor mechanism disrupted. Zero active extensionability No breaks in the skin/lacerations. Has full ROM at the fingers, wrist. No pain with palpation of the shoulder Sensation intact to light touch throughout radial/ulnar/median nerve distributions. Gives thumbs-up, makes OK sign, makes a fist. Fingers are warm, well-perfused. Radial pulse 2+. Assessment and plan: Patient is a pleasant 65-year-old male with a past medical history of hypertension, hyperlipidemia, and COPD. He sustained a left displaced closed olecranon fracture as well as bilateral obturator ring fractures and a nondisplaced left-sided acetabular fracture. Patient is curren tly neurovascularly intact in all of his extremities and he is hemodynamically stable. He does not have any loss of bowel or bladder function. Patient was admitted by the acute trauma service. Plan was discussed with Dr. Acosta Pelvic fractures: Left acetabulum and pubic ramus fractures Patient has a fracture of the left acetabulum that is not displaced. The fracture does not extend into the weightbearing portion of the acetabulum and the posterior pelvic ring is stable. We will discuss weightbearing status with the Ortho trauma service tomorrow. Nonweightbearing at this time bilateral lower extremities We will need to get PT and OT involved Olecranon fracture: OR 01/05 for ORIF of left olecranon fracture with Dr. Fay Patient will likely need surgical treatment of his left elbow, extensor mechanism not intact. N.p.o. midnight Posterior splint Nonweightbearing left upper extremity Sling for comfort Vitals: Vitals: 01/05/21 0100 01/05/21 0107 01/05/21 0115 01/05/21 0130 BP: 84/59 97/58 88/66 Pulse: 107 103 108 110 Resp: Temp: SpO2: 90% 90% 93% 92% Weight: Height: PMH: Past Medical History: Diagnosis Date BPH (benign prostatic hyperplasia) COPD (chronic obstructive pulmonary disease) (HCC) Gout Hyperlipidemia Hypertension Inflammatory arthritis uses indomethacin rarely, generally one or two doses will suffice Nicotine addiction Trigger finger, right 04/2011 Treated with steroid injection PSH: Past Surgical History: Procedure Laterality Date ENDARTERECTOMY Bilateral 12/03/2019 Procedure: RIGHT FEMORAL ENDARTERECTOMY AND ANGIOPLASTY, ANGIOGRAM, BILATERAL ILIAC ARTERY STENTS;; Surgeon: Kareem Schwartz DO RECTAL FISSURECTOMY TEETH EXTRACTION WRIST FUSION Right 03/01/2019 Procedure: RIGHT WRIST PROXIMAL ROW CARPECTOMY, CAPITATE RESURFACING, PARTIAL DENERVATION, ULNARCARPAL JOINT LOOSE BODIES REMOVAL, Extensor tenosynovectomy;; Surgeon: Rafiq Peace MD Home Medications: No current facility-administered medications on file prior to encounter. Current Outpatient Medications on File Prior to Encounter Medication Sig Dispense Refill gabapentin (NEURONTIN) 300 mg capsule TAKE 1 CAPSULE (300 MG) BY MOUTH 2 TIMES A DAY 180 capsule1 vitamin D3, cholecalciferol, 50 mcg (2000 unit) tablet Take 1 tablet (50 mcg) by mouth 1 time per day 0 tamsulosin (FLOMAX) 0.4 mg capsule Take 1 capsule (0.4 mg) by mouth every night at bedtime 90 capsule 3 atenolol (TENORMIN) 50 mg tablet Take 1 tablet (50 mg) by mouth 1 time per day 90 tablet 3 rosuvastatin (CRESTOR) 10 mg tablet Take 1 tablet (10 mg) by mouth every night at bedtime 90 tablet 3 finasteride (PROSCAR) 5 MG tablet Take 1 tablet (5 mg) by mouth 1 time per day 90 tablet 3 celecoxib (CELEBREX) 200 mg capsule Take 1 capsule (200 mg) by mouth 1 time a day with [id number] capsule 3 clopidogrel (PLAVIX) 75 mg tablet Take 1 tablet (75 mg) by mouth 1 time per day 90 tablet 3 lisinopril-hydroCHLOROthiazide (PRINZIDE, ZESTORETIC) 20-25 mg tablet Take 1 tablet by mouth 1 time per day 90 tablet 3 albuterol-ipratropium (DUO-NEB) 2.5-0.5 mg/3 mL inhalation solution Inhale 1 unit-dose (3 mL) bynebulization Every 12 hours as needed for bronchospasm, shortness of breath or wheezing 1 box 0 fluticasone-salmeterol (ADVAIR DISKUS) 250-50 mcg/dose discus Inhale 1 puff orally 2 times a dayRINSE MOUTH AFTER USE. 180 each 3 trimethoprim-polymyxin B (POLYTRIM) ophthalmic solution Place 1 drop into the right eye 4 times a day 1 Bottle 0 cyclobenzaprine (FLEXERIL) 10 mg tablet TAKE 1 TABLET (10 MG) BY MOUTH AT BEDTIME NEEDED FOR MUSCLE SPASM 30 tablet 1 ibuprofen (ADVIL;MOTRIN-IB) 200 mg tablet Take 600 mg by mouth Every 4 hours as needed for mild pain Allergies: Allergies Allergen Reactions Atorvastatin Other (Specify in Comments) myalgias Social History: Social History Socioeconomic History Marital status: Spouse name: Not on file Number of children: Not on file Years of education: Not on file Highest education level: Not on file Occupational History 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 Social Needs Financial resource strain: Not on file Food insecurity Worry: Not on file Inability: Not on file Transportation needs Medical: Not on file Non-medical: Not on file Tobacco Use Smoking status: Current Every Day Smoker Packs/day: 2.00 Years: 50.00 Pack years: 100.00 Types: Cigarettes Start date: 05/27/1968 Smokeless tobacco: Never Used Tobacco comment: "I'll decide that someday" Substance and Sexual Activity Alcohol use: Yes Alcohol/week: 22.0 standard drinks Types: 20 Cans of beer, 2 Shots of liquor per week Comment: either beer or rum Drug use: Yes Types: Marijuana Comment: 5-6 times a week/ not lately Sexual activity: Not Currently Lifestyle Physical activity Days per week: Not on file Minutes per session: Not on file Stress: Not on file Relationships Social connections Talks on phone: Not on file Gets together: Not on file Attends mosque service: Not on file Active member of club or organization: Not on file Attends meetings of clubs or organizations: Not on file Relationship status: Not on file Intimate partner violence Fear of current or ex partner: Not on file Emotionally abused: Not on file Physically abused: Not on file Forced sexual activity: Not on file Other Topics Concern Not on file Social History Narrative Not on file Family History Family History Problem Relation Age of Onset Hypertension Mother Heart Mother CABG Other Mother Paget's disease of the femur Hypertension Father Heart Father CABG Emphysema Father Other Sister respiratory disease? Suicide Brother No Known Problems Maternal Grandmother No Known Problems Maternal Grandfather No Known Problems Paternal Grandmother No Known Problems Paternal Grandfather Chronic Obstructive Pulmonary Disease Brother No Known Problems Brother No Known Problems Son No Known Problems Son Colorectal Cancer Neg Hx Lung Cancer Neg Hx Prostate Cancer Neg Hx Labs: Reviewed Benny Murrell DO Orthopedic Surgery PGY1 Associated attestation - Constantine Acosta MD - 01/05/2021 8:11 AM CDT I discussed the patient with the resident and personally interviewed and examined the patient. I verified in the medical record all resident documentation/findings, including history, physical exam, and medical decision making, and I agree with the resident's documentation. Medical Decision Making I have: Independently visualized and interpreted an image, tracing or specimen previously or subsequently interpreted by another provider. Discussed results of laboratory, radiology or other diagnostic tests with the physician who performed or interpreted the study. Obtained/reviewed old records from [facility] or elsewhere (details outlined elsewhere in note). Obtained history from a person other than the patient (details outlined elsewhere in note). Discussed case with another provider (details outlined elsewhere in note). documented in this encounter ED Notes Jacey Barry MD - 01/04/2021 9:21 PM CDT Emergency Department Visit DIAGNOSIS/ASSESSMENT: 1. Closed olecranon fracture, left, initial encounter 2. Closed pelvic ring fracture, initial encounter ([facility]) 3. Closed nondisplaced fracture of left acetabulum, unspecified portion of acetabulum, initial encounter ([facility]) ED COURSE/MEDICAL DECISION MAKINyr male presenting after a ground level fall with bilateral hip and pelvis pain, as well as a leftelbow injury. Initially plain films were obtained of the hips, pelvis and left elbow. Films showed significant injury with significantly displaced left olecranon fracture and pelvic ring fracture. I did obtain a CT scan of his upper extremity for operative planning, requested by orthopedics. CT abdomen/pelvis was also obtained for a better view of the fracture, and showed a bilateral pelvic ring fracture with extension into the left acetabulum. CT also showed a small amount of blood in the pelvis. Pt will require admission for pain control and possible operative intervention. I discussed the case with orthopedics and trauma surgery. PT ID: Izaiah Yeung is a 65yr old male HPI: The history is provided by the patient. No language translator was used. Fall The accident occurred less than 1 hour ago. The fall occurred while walking. He fell from a height of 3 to 5 ft. There was no blood loss. The point of impact was the head, left elbow and right hip. Thepain is present in the right hip, left elbow and left hip. The pain is at a severity of 2/10. The pain is mild. He was ambulatory at the scene. There was no entrapment after the fall. There was no druguse involved in the accident. There was no alcohol use involved in the accident. Pertinent negativesinclude no fever, no numbness, no vomiting and no headaches. The symptoms are aggravated by activity. Izaiah Yeung is a 65yr male with PMH of COPD, hypertension and hyperlipidemia presenting to the ED via EMS following a fall just prior to arrival. Pt states he got caught on a dog leash and fellonto his left elbow and right hip. He reports hitting his head, but denies any loss of consciousness. Pt reports left elbow pain and swelling as well as bilateral hip pain. Pt states he is unable to move his right leg. Pt denies any shoulder, back or head pain. Pt denies any recent illness. Pt is right handed. Pt is not currently anticoagulated. CHIEF COMPLAINT: Fall (Pt arrives via [facility] with reports of a fall and left arm injury. Pt was chasing his grandson today when he tripped on a dog leash and fell on his left arm. Left arm swollen on arrival, nodeformity noted. Pt also c/o bilateral hip pain, pain to touch,) and Arm Injury (Left arm/elbow painand swelling. Pt able to fully extend and flex arm. Sensation and pulses normal.) DISPOSITION: Patient Disposition: Patient Admitted and Treated in this Facility Patient will be admitted. Discharge Rx: Current Discharge Medication List Follow Up Information: MEDICATION ADMINISTERED and VITAL SIGNS ED Medication Administration from 01/04/20212019 to 01/05/2021 0147 Date/Time Order Dose Route Action Action by 01/05/2021 0039 cyclobenzaprine (FLEXERIL) tablet 10 mg 10 mg Oral Given Tamia Stein RN 01/04/2021 2154 HYDROmorphone (DILAUDID) injection solution (conc: 1 mg/mL) 0.5 mg 0.5 mg IV Given Tamia Stein RN 01/04/2021 2338 HYDROmorphone (DILAUDID) injection solution (conc: 1 mg/mL) 0.5 mg 0.5 mg IV Given Tamia Stein RN 01/04/2021 2328 iohexol (OMNIPAQUE) 350 mg/mL solution 100 mL 83 mL IV Given Carito Siegel, RT(R) 01/05/2021 0039 oxyCODONE (OXY-IR) tablet 5-10 mg 5 mg Oral Given Tamia Stein RN Vitals: 01/05/21 0115 01/05/21 0130 01/05/21 0149 01/05/21 0206 BP: 88/66 137/75 Pulse: 108 110 110 Resp: Temp: 98.7 F (37.1 C) SpO2: 93% 92% 94% 93% Weight: Height: REVIEW OF SYSTEMS: Review of Systems Constitutional: Negative for fever. Gastrointestinal: Negative for vomiting. Musculoskeletal: +Left elbow pain +Bilateral hip pain Neurological: Negative for numbness and headaches. Hematological: Does not bruise/bleed easily. All other systems reviewed and are negative. PHYSICAL EXAM ED Triage Vitals [01/04/212025] Temp Temp Source Pulse Resp BP SpO2 O2 Flow Rate (L/min) O2 Device 97.9 F (36.6 C) Oral 93 16 102/59 96 % -- RA Physical Exam Vitals signs and nursing note reviewed. Constitutional: General: He is not in acute distress. Appearance: He is well-developed. HENT: Head: Normocephalic and atraumatic. Eyes: Conjunctiva/sclera: Conjunctivae normal. Neck: Musculoskeletal: Normal range of motion. Cardiovascular: Rate and Rhythm: Normal rate and regular rhythm. Heart sounds: Normal heart sounds. No murmur. Pulmonary: Effort: Pulmonary effort is normal. No respiratory distress. Breath sounds: Normal breath sounds. Abdominal: General: There is no distension. Palpations: Abdomen is soft. Musculoskeletal: Normal range of motion. General: Swelling and signs of injury present. Left elbow: He exhibits swelling and deformity. Comments: Large hematoma over left olecranon bursa and somewhat over the distal left humerus. Tenderness present over distal humerus and olecranon. Pt complains of bilateral hip and groin pain. His pelvis feels stable, but he has increased pain with compression. No obvious hip deformity. Skin: General: Skin is warm and dry. Neurological: Mental Status: He is alert and oriented to person, place, and time. Procedures MEDICATIONS & ALLERGIES: No current outpatient medications on file. Patient is allergic to Atorvastatin PAST MEDICAL & SURGICAL HISTORY Past Medical History: Diagnosis Date BPH (benign prostatic hyperplasia) COPD (chronic obstructive pulmonary disease) (HCC) Gout Hyperlipidemia Hypertension Inflammatory arthritis uses indomethacin rarely, generally one or two doses will suffice Nicotine addiction Trigger finger, right 04/2011 Treated with steroid injection Past Surgical History: Procedure Laterality Date ENDARTERECTOMY Bilateral 12/03/2019 Procedure: RIGHT FEMORAL ENDARTERECTOMY AND ANGIOPLASTY, ANGIOGRAM, BILATERAL ILIAC ARTERY STENTS;; Surgeon: Kareem Schwartz DO RECTAL FISSURECTOMY TEETH EXTRACTION WRIST FUSION Right 03/01/2019 Procedure: RIGHT WRIST PROXIMAL ROW CARPECTOMY, CAPITATE RESURFACING, PARTIAL DENERVATION, ULNARCARPAL JOINT LOOSE BODIES REMOVAL, Extensor tenosynovectomy;; Surgeon: Rafiq Peace MD SOCIAL & FAMILY HISTORY: @HXFAMILY@ Social History Tobacco Use Smoking Status Current Every Day Smoker Packs/day: 2.00 Years: 50.00 Pack years: 100.00 Types: Cigarettes Start date: 05/27/1968 Smokeless Tobacco Never Used Tobacco Comment "I'll decide that someday" MEDICAL DECISION MAKING MDM Number of Diagnoses or Management Options Closed nondisplaced fracture of left acetabulum, unspecified portion of acetabulum, initial encounter (HCC): new and requires workup Closed olecranon fracture, left, initial encounter: new and requires workup Closed pelvic ring fracture, initial encounter (HCC): new and requires workup Amount and/or Complexity of Data Reviewed Clinical lab tests: ordered and reviewed Tests in the radiology section of CPT: ordered and reviewed Tests in the medicine section of CPT: ordered and reviewed Review and summarize past medical records: yes (Prior records reviewed.) Discuss the patient with other providers: yes Independent visualization of images, tracings, or specimens: yes (Multiple plain films and CT scans reviewed) Risk of Complications, Morbidity, and/or Mortality Presenting problems: high Diagnostic procedures: high Management options: high Patient Progress Patient progress: stable I, Josue Joseph, acting as a scribe for Dr. Barry to document services personally performed for Izaiah Yeung by Dr. Barry. Josue Joseph, SCRIBE 01/04/21 9:22 PM CDT I worked with the ED Scribe to provide the medical documentation for this ED encounter. They scribedin my presence. I have read, amended as needed, and agree with their documentation. Jacey Barry MD *This note was created, at least in part, with the use of [employer] Voice Dictation System. Inadvertent typographical errors, due to software recognition problems, may still exist. O CESARTKierra Rosario RN - 01/04/2021 8:33 PM CDTPlan of care includes addressing Musculoskeletal with attention to left arm injury and fall. documented in this encounter Miscellaneous Notes Case Mgmt - Mali Pierce LSW - 01/10/2021 11:44 AM CDTCASE MANAGEMENT REFERRAL EDUCATION Patient in need of the following services: Transitional Care / Senior Care Facility / Swing Bed Discussion of this need and/or printed listing of available agencies has been provided to patient/substitute decision maker. Opportunities have been given for questions to be asked and answered. Patient/Substitute decision maker agency preferences for services (list in order of preference): 1. [facility] - Sw[facility] 2. [facility] - [place] Referrals Made: Profiled via [facility] to following SNFs - [facility] and [facility] Medicare Comparison Information: Medicare guidelines require referring agencies to provide information regarding agency quality ratings. [facility] may assist with questions about facilities but cannot make recommendations. Patients and their families/decision makers are able to compare ratings of facilities at the following website: ttps://www.medicare.gov/bgjqx-tmmu-xrvtpsgxs/agae-ixgkofu-qiwwojz-[facility] r-providers or you may call 1-800-MEDICARE Acceptance/Placement: [facility] shares necessary clinical information with potential agencies to allow them to screen patients for safe admission to their facilities. This information is shared via secure communication. Acceptance by a post-acute facility is dependent on many factors including space, care needs, staffing, and insurance coverage. Financial disclosure: Verification of ownership of any agency/facility is available in the above Medicare website. [facility] is affiliated with [facility]-owned home care, hospice, [facility] nursing facilities, including agencies with [facility] in the name and [facility]. Additional agencies may not have [facility] in their name. Medicare guidelines require [facility] to provide a written list of options for your desired care. Youwill be provided a copy if desired. A copy of this document will be given to patient/substitute decision maker as confirmation of conversation regarding referrals and placement options. SIGNED: ZANE Donaldson Room Clerk Case Management PH. [phone] FX. [phone] Case Mgmt - Mali Pierce LSW - 01/10/2021 9:03 AM CDTCASE MANAGEMENT / SOCIAL SERVICE FINAL TRANSITION PLAN TRANSITION DATE:01/10/2021 TRANSITION TIME: 1200 INTENDED PAYER SOURCE FOR AGENCY: Medicare TRANSITION DESTINATION: [address] [place] [address] DOES ACCEPTING FACILITY REQUIRE COVID TESTING BEFORE DISCHARGE: Needs one negative test within 24-48 hours TRANSITION TRANSPORTATION: [employer] Stretcher (P: [phone]) TRANSPORTATION PAYMENT: Billed to Case Management Due to: expedite charges TRANSITION CHOICES OFFERED: Home: Family/Friend Support and 24-Hour Supervision Senior Care Facility Swing Bed DOES THE PATIENT HAVE A PRIMARY CARE PHYSICIAN? Yes Tamia Saleh PA-C PATIENT / SUBSTITUTE DECISION MAKER GOAL UPON TRANSITION: First Choice: Swing Bed PATIENT CHOICE EDUCATION: Choice Form placed in slim chart for scanning into chart MEDICARE 3 IP MIDNIGHT CRITERIA MET: Yes: 6 days RESOURCE(S) PROVIDED: Placement DOES PATIENT HAVE CLOTHING TO WEAR AT DISCHARGE? Yes ANTICIPATED MODE OF TRANSPORT TO AND FROM FOLLOW UP APPOINTMENTS: As arranged by accepting facility VERIFIED CORRECT PHARMACY IS ENTERED FOR DISCHARGE: Yes - Pharmacy: [facility] METHOD OF PRESCRIBING MEDICATIONS: Reconcile medications as Patient Transfer ("65 button") TRANSITION ROUNDING COMPLETED WITH THE FOLLOWING: Patient / family Cloth Presser Attending MD Bedside RN Discussed in person Secure Chat COMMENTS / PATIENT AND FAMILY RESPONSE TO PLAN: Reviewed pt chart. Per chart, pt medically stable for discharge today at 1200 to [facility]. Pt is agreeable. Pt will transport via [facility] stretcher ride - cost will be covered by case management. Pharmacy is correct in Epic. No further needs for CM at this time. Yesterday, pt submitted an appeal to discharge. Pt's appeal was denied. SPECIAL TRANSITION DAY INSTRUCTIONS TO NURSE / MD: DENTAL PRACTITIONER: Please fax paperwork to above fax number Nursing: please call report at above number before or just as patient leaves. MD: please do [facility] transfer order set, ensure orders for PT, OT, ST(if needed) are included.When doing medication orders, there cannot be any range orders, and indication is needed for all meds. N2N: [phone] (Ask for charge nurse) FX: [phone] Pharmacy: [facility] CURRENT READMISSION RISK SCORE / HANDOFF: Predictive Risk Score Risk of Unplanned Readmission: 9.1 Handoff given: N/A SIGNED: ZANE Donaldson Room Clerk Case Management PH. [phone] FX. [phone] Physical Therapy - Ravi Zamora, PT - 01/10/2021 8:59 AM CDT Physical Therapy Acute Inpatient Treatment Note ASSESSMENT/RECOMMENDATIONS Pt tolerated therapy well this date. Able to stand and perform pivot transfer to the chair with assist x1 and lucas walker. Does take steps towards his R to perform. Continues to have significant difficulty with bed mobility. 6-Clicks Basic Mobility Score: 13 Activity Prescription with Nursing: Assist patient to chair 3 times per day for 30 to 60 minutes or for all meals. Use Ax1-2 Assist patient to complete exercises 10 times, 3 times per day (in sitting): air boxing, lift arms above head, straighten knees, marching. Encourage patients to do personal cares when sitting up. Use bathroom or commode rather than bedpan. Anticipated D/C Service needs: Low intensity setting SUBJECTIVE Pt sitting up in bed and is agreeable to therapy at this time. Would like to attempt standing and transfer to chair. OBJECTIVE Bed Mobility: Min assist with HOB at 40 degrees. Assist for LE and for torso Transfers: Sit to/from stand with Min assist x1. Performed this transfer x2 with use of lucas walker. Uses wide MICHELA to perform 2/2 pain in pelvis. Was able to perform pivot transfer over to the chair with Lucas walker to his R. Takes steps and requires min assist x1 to perform. Quite guarded. Gait: Stairs: Therapeutic Exercises: LAQ x10 SHERYL Hip ABD/ADD without resistance through ROM x12 SHERYL Balance Training: Pt able to stand for 3 minutes with unilateral support of the lucas walker and no LOB with SBA. Does occasionally take his R hand off of the walker for brief periods of time without LOB Other: Pt left sitting up in chair with chair alarm on and call light in reach Education: Educated on transfers and DC recommendations and PT POC PLAN Continue plan of care. Today's Treatment: Gait Training: minutes Therapeutic Exercise: minutes Therapeutic Activity: 26 minutes TOTAL TIMED CODES: 26 minutes TREATMENT TOTAL TIME: 26 minutes Ravi Zamora PT, DPT [facility] [address] [id number] are Planning - Henrik Lee RN - 01/10/2021 12:32 AM CDT Problem: ACUTE PAIN Goal: CLIENT SATISFACTION: PAIN MANAGEMENT Description: DEFINITION: Extent of positive perception of nursing care to relieve pain. 1=Not at all satisfied, 2=Somewhat satisfied, 3=Moderately satisfied, 4=Very satisfied, 5=Completely satisfied. Outcome: NOC Rating 4 Flowsheets (Taken 01/10/2021 003) Plan of care reviewed with: Patient Patient specific goal for the day: Manage pain with po pain medication Patient specific goal for the stay: Reduce the need for pain medication Achieve goal for stay: By discharge Patient Progress: Patient having pain 5/10 during shift. managing pain with PO pain medication. willcontinue to monitor pain levels. Occupational Therapy - Ainsley Weinberg OTR/Narda - 01/09/2021 3:06 PM CDT Occupational Therapy Acute Care Progress Note Impression/Recommendations Pt continues to function below reported baseline level of independence. Pt requires assist x 1-2 forADLs and assist x 2 for transfers. Pt not safe to return home alone. OT recommends low-intensity therapy setting when medically stable with continued skilled OT services. Acute OT will continue per POCto maximize functional strength, activity tolerance, cognition, safety, balance, and independence with ADLs, transfers and functional mobility, needed for optimal quality of life. Objective Precautions: L UE NWB, WBAT B LE, bed/chair alarms, Cytotoxic/low risk hazardous medication, on 01/09/21 communication from Jabier López, orthopedic PA, regarding sling use, "he can take it off in bedfor comfort, but if he is up and around transferring or ambulating should be in the sling". Cognition: Pt is alert, oriented x person, place, circumstance, month and year. Reoriented to specific date/day of week; Pt agrees to therapy. Presents with some forgetfulness/confusion intermittentlyt/o session. Pt initially asks, how many times do you people come a day? Informed him of both PT/OT coming to see him for therapy and educated on difference of the 2 disciplines, Pt verbalized understanding. When OT was informing Pt that he was performing transfers and some ADLs better today compared to prior session, he asked, "did I see you yesterday?" OT reminded Pt of the tasks we performed yesterday morning and then he recalled the rest of the session. Pt states he's not usually so forgetful. Pt to benefit from further reinforcement of training/education on safety/technique with ADLs, transfers, and adaptive equipment use to promote optimal safety and function. U/E: U/E exercise performed to promote joint integrity, reduce risk of contracture formation and facilitate enhancement of strength and endurance/activity tolerance, to further independence with ADLs/IADLs. Pt completed R UE: AROM 10 x 1 for all available motions/planes, L UE shoulder flexion and abduction to 90 degrees, digit ROM exercises (6 pack hand exercises) 10 x 1 as Pt tolerates. Pt does have fatigue/some soreness (but tolerable) t/o session. OT provided education on correct technique, speed and achieving full (tolerated) end range. Pt will require reinforcement of this education/training. Intermittent rest breaks required d/t weakness, fatigue and decreased activity tolerance. Patient required assist to track the number of repetitions and maintain proper form throughout each exercise. Education on sling use for optimal support/positioning of L UE. Education on using pillow under arm for support for positioning and elevation/edema mgmt. ADLs: Frequent rest breaks utilized t/o session to assist with recovery/tolerance of activity d/t pain, weakness, and fatigue. Grooming: minimal assistance for thorough job completion; set-up with most tasks for using R UE (dominant) Dressing: Upper body: minimal assistance with don/doff UB garment. Total assist with mgmt of sling. Lower body: Discomfort in pelvic region today and declines dressing distal LE's. Pt reports the drawstring on his pants are not the right tightness level for him and reports that the pants are not upto his waist level and asks to stand to fix the pants. Pt requires maximum assistance for pulling pants up to waist level fully once in standing as he relies on R UE on lucas walker. Total assistance for tightening pants and managing drawstring on pants while standing. ADL education/comments: Education/training on proper body mechanics to promote safety with ADLs. Education/training on correct technique and safety with ADLs and transfers. Education on energy conservation techniques and how to implement into daily routines. Education on sitting for safety with ADL's/IADL's as warranted (I.e. dressing, bathing, grooming, meal prep, etc). Education and training on adaptive equipment options and recommendations. Pt to benefit from further reinforcement of education/training provided this date. Transfers: Bed: maximum assistance x 1 EOB to stand with bed height minimally elevated with lucas walker and instruction on technique. Transfer completed x 3 with pt tolerating standing for dynamic ADL tasks for1-2 minutes each time. Education on improvement in performance this date. Comment: Gait belt, non-slip footwear, used for safety with transfers/functional mobility. Pt left sitting at EOB comfortably at end of session, with bed positioned in locked/lowest setting, bed alarmon; with safety parameters in place. RN aware and consents to this position. Pt has bed rail up behind him with pillows propped at his back. Pt awaiting his meal to eat at EOB. Call light, phone and bedside table placed within reach at end of session. Education provided on using call light and waitingfor staff assistance before getting up. Pt verbalizes understanding/agreement. Pain: reports mild pain in L elbow, mid-forearm, right hip/groin/back. Education Education/Training provided: Education/training on purpose/role of OT, UE exercises/ROM, ADL techniques, transfer techniques, safety strategies, adaptive equipment options/use, compensatory strategies, energy conservation techniques, use of call light and importance of calling for assistance, goals,POC, and discharge recommendations. Learners: Patient Readiness: Acceptance, willing Method of Training: Verbal education/explanation, demonstration Response: Verbalized/demonstrated understanding, will benefit from continued reinforcement, unableto consistently perform teach back/return demonstration yet Adaptive Equipment Recommendations Adaptive Equipment Recommended: Will continue to assess and make recommendations as appropriate. Adaptive equipment already in place: none Plan to obtain adaptive equipment: To further assess. Goals Patient/Family Stated Goal for Session: Pt agreeable to therapy services Short Term/Usp Goals: Short Term Goals: Patient will complete left shoulder and digit AROM exercises independently (ongoing) Patient will complete grooming task safely standing at the sink withSBAusing adaptive equipment as needed. (ongoing) Patient will complete LB dressing safely withSBAusing adaptive equipment as needed. (ongoing) Patient will complete toileting safely withSBAusing adaptive equipment as needed. (ongoing) Patient will complete functional transfers safely withSBAusing adaptive equipment as needed.(ongoing) Patient will further participate with cognitive assessment to increase safety with functional tasks.(ongoing) Patient will have AE in place to increase safety with ADLs by discharge (ongoing) Patient continues to progress towards goals. Charges Treatment/Minutes: Today's Evaluation/Treatment Self care/home management: 25 minutes Therapeutic exercise: 14 minutes Total Treatment Time: 39 minutes Treatment Session 12/22 Weekly Assessment/Plan (Day 5): Will continue per OT POC while Pt remains in acute care setting. Therapist Alpha Pager Number [phone] are Planning - Nataly Méndez RN - 01/09/2021 12:21 PM CDT Problem: ACUTE PAIN Goal: CLIENT SATISFACTION: PAIN MANAGEMENT Description: DEFINITION: Extent of positive perception of nursing care to relieve pain. 1=Not at all satisfied, 2=Somewhat satisfied, 3=Moderately satisfied, 4=Very satisfied, 5=Completely satisfied. Outcome: NOC Rating 3 Flowsheets (Taken 01/09/2021 1220) Initial Score: 3 Target Score: 5 Plan of care reviewed with: Patient Patient specific goal for the day: To have tolerable pain and rest Patient specific goal for the stay: To have minimal pain Patient Progress: Pt rating pain 6/10, PRN pain meds given. Pt resting in bed, worked with therapies, up to chair x1. hysical Therapy - Eduarda Ventura, PT - 01/09/2021 10:30 AM CDT Physical Therapy Acute Inpatient Treatment Note ASSESSMENT/RECOMMENDATIONS Pt presents with decreased functional mobility requiring assist x 1-2 for safe mobility. 6-Clicks Basic Mobility Score: 11 Activity Prescription with Nursing: Assist patient to chair 3 times per day for 30 to 60 minutes or for all meals. Use Ax1, slide board. Anticipated D/C Service needs: Low intensity setting SUBJECTIVE Pt reports LE pain when weightbearing. OBJECTIVE L UE NWB, B LE WBAT Bed Mobility: Min/mod assist x 2, EOB steady. Don pants supine in bed. Dependent to initiate, pt able to assist with R UE to complete pants over hips. Don socks, dependent to initiate, able to complete with R UE SBA. Sling L UE. Transfers: Sit to/from stand with slide board assist x 1. Therapeutic Exercises: B LE heel slides and quad sets Other: Up in chair, chair alarm on, call light in reach Education: eduacated pt on using slide board, demonstrated understanding. PLAN Continue plan of care. Today's Treatment: Gait Trainin minutes Therapeutic Exercise: 0 minutes Therapeutic Activity: 25 minutes TOTAL TIMED CODES: 25 minutes TREATMENT TOTAL TIME: 25 minutes [id number] ase [facility] - Mali Pierce LSW - 01/09/2021 10:28 AM CDTCASE MANAGEMENT / SOCIAL SERVICE TRANSITION PLAN - PROGRESS NOTE PLAN: Awaiting Patient/Family Decision Regarding Plan of Care Awaiting Medical Doctor Recommendations for Transition Transition Options Being Explored Will Continue to Follow for Support and Progression Towards Final Transition Plan BARRIERS TO TRANSITION: Other: Patient appealing discharge DOES ACCEPTING FACILITY REQUIRE COVID TESTING BEFORE DISCHARGE: N/A COMMENTS / PATIENT AND FAMILY RESPONSE TO PLAN: Reviewed pt chart. Visited pt at bedside to review and verify DC plan for today. Upon verifying placement, ride, and discharge, pt voiced that "my son told me there isn't any furniture there", "that you have to bring youown", and that "the food is crap there". Pt stated "I don't want to go if they don't have anything there". Provided possible alternative options to patient including appealing discharge, refusing placement, staying with son for cares, and home cares. Spoke with pt for 20-30 mins in detail about these options. Pt's first choice is to appeal discharge. Pt will remain in hospitalization until 1200 on 01/10 to make a discharge decision. Consulted YOEL Bucio small appliance assembly supervisor, to serve Appeal Discharge Forms. CM called [facility] to notify them of appeal. 1100 UPDATE Spoke with pt at bedside to determine new discharge plan for tomorrow. Pt's first choice is [facility]. Pt agrees to 1100 discharge time on 01/10. Called facility to establish placement. CM to follow to continue setting up placement for 1100 discharge tomorrow via son's vehicle. CM to help pt complete KE[facility] call for appeal. IS PATIENT'S ADMISSION ASSOCIATED WITH TIA, ISCHEMIC, OR HEMORRHAGIC STROKE?: No PATIENT / SUBSTITUTE DECISION MAKER GOAL UPON TRANSITION: First Choice: Other: Patient appealing discharge ANTICIPATED NEEDS UPON TRANSITION: Other: Patient appealing discharge RESOURCE(S) PROVIDED: nothing needed at this time ANTICIPATED MODE OF TRANSPORT UPON TRANSITION: Other: TBD ANTICIPATED MODE OF TRANSPORT TO AND FROM FOLLOW UP APPOINTMENTS: Other: TBD VERIFIED CORRECT PHARMACY IS ENTERED FOR DISCHARGE: No TRANSITION ROUNDING COMPLETED WITH THE FOLLOWING: Patient / family Cloth Presser Attending MD CORD MAKER / PA Bedside RN Discussed in person SIGNED: ZANE Donaldson Room Clerk Case Management PH. [phone] FX. [phone] Case Mgmt - Amanda Pacheco RN - 01/09/2021 10:10 AM CDTCASE MANAGEMENT PROGRESS NOTE Received update from KELLY Asencio that patient indicated he wants to appeal his discharge. Visited with patient and confirmed he has received second IMM. Presented him with a Detailed Notice of Discharge and referred him to the phone number for KE[employer] to initiate appeal. Reviewed with patient once appeal is made, he will be able to stay at least until 1200 tomorrow while the third republican reviews records. If the third republican rules in favor of the hospital he will not be covered for continued stay [id number] tomorrow, 01/10. Reviewed with patient I understood he was not wanting to go to [facility]. Informed him he willstill be working with Elif on what an alternative to SNF placement would be if he doesn't want to go to SNF. He nodded in agreement. PLAN: SW/CM will work on discharge plan with patient while awaiting appeal results. SIGNED: ERNESTINE Reyez, RN, [facility] Cloth Presser Component Assembler Supervisor, Case Management/Acquisitions Assistant [facility] Cell/pager [phone] O CESARTCtoya Vela - Anu Fall RN - 01/09/2021 6:11 AM CDT Problem: ACUTE PAIN Goal: CLIENT SATISFACTION: PAIN MANAGEMENT Description: DEFINITION: Extent of positive perception of nursing care to relieve pain. 1=Not at all satisfied, 2=Somewhat satisfied, 3=Moderately satisfied, 4=Very satisfied, 5=Completely satisfied. Flowsheets (Taken 01/09/2021 1440) Initial Score: 4 Target Score: 5 Plan of care reviewed with: Patient Patient specific goal for the day: To have tolerable pain and rest Patient specific goal for the stay: To have minimal pain Achieve goal for stay: By discharge Patient Progress: Pt resting at over night. PRN pain meds needed 1X. Pt requesting a Neb treatmentwith a non-productive cough. Will continue to monitor. John Mccoy RN - 01/08/2021 9:47 PM CDT Problem: RISK FOR FALLS Goal: FALL PREVENTION BEHAVIOR Description: DEFINITION: Personal or family career law clerk actions to minimize risk factors that might precipitate falls in the personal environment. 1=Never demonstrated, 2=Rarely demonstrated, 3=Sometimes demonstrated, 4=Often demonstrated, 5=Consistently demonstrated. Flowsheets (Taken 01/08/2021 9860) Initial Score: 3 Target Score: 5 Plan of care reviewed with: Patient Patient specific goal for the day: Adequate pain control. Patient specific goal for the stay: Retun to baseline Achieve goal for stay: By discharge Patient Progress: Patient is alert and orieted x 4 has denied pain so far this shift. Had scheduled tylenol. Up to chair with assist of two. Will continue to monitor. espiratory Therapy - Kenneth Crow, CUSTOMER RETENTION SPECIALIST - 01/08/2021 6:30 PM CDTRT called to pt room due to pt wanting a tx per RN. Pt was under the impression that Breo Ellipta was a BID medication. Pt informed that Breo Ellipta was a daily medication. Pt denies any SOB at this time. Pt declines duo-neb prn at this time. RT to follow. ase Mgmt - Mali Pierce LSW - 01/08/2021 2:50 PM CDTCASE MANAGEMENT / SOCIAL SERVICE TRANSITION PLAN - PROGRESS NOTE PLAN: Discharge Placement Barriers: [place] screen approval Will Continue to Follow for Support and Progression Towards Final Transition Plan BARRIERS TO TRANSITION: Awaiting Placement: Senior Care/Swing Bed/TCU and Other: [place] screen approval DOES ACCEPTING FACILITY REQUIRE COVID TESTING BEFORE DISCHARGE: Needs one negative test within 24-48 hours COMMENTS / PATIENT AND FAMILY RESPONSE TO PLAN: Reviewed pt chart. Pt medically stable for likely discharge tomorrow. Attempted discharge today, but faced barriers of placement acceptance and approval of [place] screen. Therapies recommending short term SNF stay. Pt is agreeable. Spoke with pt and sons at bedside. [facility]. Facilities has offered placement for 11:00 tomorrow. Pt will transport to facility via son's vehicle. Attempted calling Judy at [facility] multiple times today leaving voice mails with no response.Called [facility] to ask for another contact - was provided help with Stacie. Attempted to setupplacement for today - but pending [place] screen and late offer for placement barricaded discharge for today. CM to complete [place] screen. TENTATIVE PLAN: Discharge tomorrow at 1100 to [facility] via son's vehicle. IS PATIENT'S ADMISSION ASSOCIATED WITH TIA, ISCHEMIC, OR HEMORRHAGIC STROKE?: No PATIENT / SUBSTITUTE DECISION MAKER GOAL UPON TRANSITION: First Choice: Senior Care Facility ANTICIPATED NEEDS UPON TRANSITION: Senior Care Facility RESOURCE(S) PROVIDED: Placement ANTICIPATED MODE OF TRANSPORT UPON TRANSITION: Family Car ANTICIPATED MODE OF TRANSPORT TO AND FROM FOLLOW UP APPOINTMENTS: As arranged by accepting facility VERIFIED CORRECT PHARMACY IS ENTERED FOR DISCHARGE: Yes - Pharmacy: [id number] [place] [address] [place] [address] TRANSITION ROUNDING COMPLETED WITH THE FOLLOWING: Patient / family Cloth Presser Attending MD CORD MAKER / PA Bedside RN Discussed in person SIGNED: Mali Carrillo, ZANE Room Clerk Case Management PH. [phone] FX. [phone] Respiratory Therapy - Dana Mesa, CUSTOMER RETENTION SPECIALIST - 01/08/2021 2:28 PM CDTPt seen resting in bed.On RA. BS diminished with a mild expiratory wheeze. Continues on Bro daily. RT to follow. hysical Therapy - Efrain Jaimes, PT - 01/08/2021 1:11 PM CDT Physical Therapy Orthopedic Treatment Note Date: 01/08/2021 Assessment/Recommendations: The patient is S/P left olecranon ORIF 01/05 NWB L UE with sling with activity. Non-operative left pubic rami/ acetabular fracture WBAT L LE. The patient transferred supine to sit with moderate assistance of 2. The patient transferred sit to stand with hemiwalker on right with maximal assistance of 2. The patient was able to take a few small steps forward and back with maximal assistance of 2 and hemiwalker to transfer bed to chair. This patient displays functional deficits with bed mobility, transfers and ambulation and is not physically safe to return home at current level of function. I recommendthis patient receive continued physical therapy services at a [facility] to regain independence in these deficit areas, once medically stable per MD. Acute PT will continue to follow daily. Procedure/Date: S/P left olecranon ORIF 01/05 Precautions/Weight Bearing: NWB L UE with sling with activity. WBAT L LE. Subjective: Alert and Oriented. Family/Instrumentation Technician present for PT: None (see flowsheet) Objective: Gait belt donned for all out of bed activities. Supine to/from sit: The patient transferred supine to sit with moderate assistance of 2. Sit to/from stand: The patient transferred sit to stand with hemiwalker on right with maximal assistance of 2. Standing Balance: poor Gait: The patient was able to take a few small steps forward and back with maximal assistance of 2 and hemiwalker to transfer bed to chair. Exercises: Patient completed B LE AAROM exercises times 10 repetitions with assistance for active exercises. Other: Patient positioned in recliner chair upon completion of PT session; call light in reach. Pain: (0-10 scale) At rest: 0 With Activity: 6 Education: Patient was educated on precautions, exercise progression, transfer techniques, gait and mobility progression today through explanation. The patient accepted teaching and verbalized understanding. Plan: Continue with plan of care. Time Treatment Occurred: 12:47 Gait: 0 minutes Exercise: 3 minutes Therapeutic Activity: 12 minutes TOTAL TIMED CODES: 25 minutes TREATMENT TOTAL TIME: 25 Minutes Efrain Jaimes PT Alpha Pager [phone] Occupational Therapy - Ainsley Weinberg, OTR/L - 01/08/2021 11:40 AM CDT Occupational Therapy Acute Care Progress Note Impression/Recommendations Pt continues to function below reported baseline level of independence. Pt requires assist x 1-2 forADLs and assist x 2 for transfers. Pt not safe to return home alone. OT recommends low-intensity therapy setting when medically stable with continued skilled OT services. Acute OT will continue per POCto maximize functional strength, activity tolerance, cognition, safety, balance, and independence with ADLs, transfers and functional mobility, needed for optimal quality of life. Objective Precautions: L UE NWB, with sling with activity, WBAT L LE, bed/chair alarms, Cytotoxic/low risk hazardous medication Cognition: Pt is alert, oriented x 3, agrees to therapy. Presents with some forgetfulness/confusionintermittently t/o session. Pt to benefit from further reinforcement of training/education on safety/technique with ADLs, transfers, and adaptive equipment use to promote optimal safety and function. U/E: U/E exercise performed to promote joint integrity, reduce risk of contracture formation and facilitate enhancement of strength and endurance/activity tolerance, to further independence with ADLs/IADLs. Pt completed R UE: AROM 10 x 1 for all available motions/planes, L UE shoulder ROM to 90 degrees, digit ROM exercises 5-8 x 1 as Pt tolerates. OT provided education on correct technique, speed and achieving full (tolerated) end range. Pt will require reinforcement of this education/training. Intermittent rest breaks required d/t weakness, fatigue and decreased activity tolerance. Patient required assist to track the number of repetitions and maintain proper form throughout each exercise. ADLs: Grooming: minimal assistance for thorough job completion; set-up with most tasks for using R UE (dominant) Dressing: Upper body: maximum assistance for don/doff of UB garment; mgmt around trunk and threading over limbs. Total assist with mgmt of sling. Lower body: Total assistance for Toileting: maximum assistance x 2 for balance, safety and completion of clothing mgmt/hygiene cares. ADL education/comments: Education/training on proper body mechanics to promote safety with ADLs. Education/training on correct technique and safety with ADLs and transfers. Education on energy conservation techniques and how to implement into daily routines. Education on sitting for safety with ADL's/IADL's as warranted (I.e. dressing, bathing, grooming, meal prep, etc). Pt to benefit from further reinforcement of education/training provided this date. Transfers: Bed: maximum assistance x 1-2, supine <> sit with HOB elevated and side rail used with transfer to right side. Chair: maximum assistance x 2 for safety/balance with sit <> stand, stand-pivot transfer, and turning to align self with transfer surface. Instruction on safety and technique provided. Toilet/BSC: maximum assistance x 2 for safety/balance with sit <> stand, stand-pivot transfer, and turning to align self with transfer surface. Instruction on safety and technique provided, use of lucas-walker. Comment: Gait belt, non-slip footwear, used for safety with transfers/functional mobility. Pt fatigued with session and was left lying comfortably in bed at end of session, with bed positioned in locked/lowest setting; with safety parameters in place. Call light, phone and bedside table placed within reach at end of session. Education provided on using call light and waiting for staff assistance before getting up. Pt verbalizes understanding/agreement. Pain: 01/27 Education Education/Training provided: Education/training on purpose/role of OT, UE exercises/ROM, ADL techniques, transfer techniques, safety strategies, adaptive equipment options/use, compensatory strategies, energy conservation techniques, use of call light and importance of calling for assistance, goals,POC, and discharge recommendations. Learners: Patient Readiness: Acceptance, willing Method of Training: Verbal education/explanation, demonstration Response: Verbalized/demonstrated understanding, will benefit from continued reinforcement, unableto consistently perform teach back/return demonstration yet Adaptive Equipment Recommendations Adaptive Equipment Recommended: Will continue to assess and make recommendations as appropriate. Adaptive equipment already in place: none Plan to obtain adaptive equipment: To further assess. Goals Patient/Family Stated Goal for Session: Pt agreeable to therapy services Short Term/Usp Goals: Short Term Goals: Patient will complete left shoulder and digit AROM exercises independently (ongoing) Patient will complete grooming task safely standing at the sink withSBAusing adaptive equipment as needed. (ongoing) Patient will complete LB dressing safely withSBAusing adaptive equipment as needed. (ongoing) Patient will complete toileting safely withSBAusing adaptive equipment as needed. (ongoing) Patient will complete functional transfers safely withSBAusing adaptive equipment as needed.(ongoing) Patient will further participate with cognitive assessment to increase safety with functional tasks.(ongoing) Patient will have AE in place to increase safety with ADLs by discharge (ongoing) Patient continues to progress towards goals. Charges Treatment/Minutes: Today's Evaluation/Treatment Self care/home management: 30 minutes Therapeutic exercise: 10 minutes Total Treatment Time: 40 minutes Treatment Session 2/5 Weekly Assessment/Plan (Day 5): Will continue per OT POC while Pt remains in acute care setting. Therapist Alpha Pager Number [phone] Nutrition Team - Kindra Mark RD - 01/08/2021 9:46 AM CDT Nutrition Therapy Follow Up Hospital Day: 4 days Active Problems: ? Acute closed displaced olecranon fracture s/p surgical repair ? Bilateral obturator ring fractures ? Nondisplaced left sided acetabular fracture ? Hyperlipidemia ? BPH ? COPD ? Peripheral arterial disease PMH: BPH, COPD, gout, HLD, HTN, inflammatory arthritis, nicotine addiction. Recommendations: Please assist pt to sit at edge of bed during meal times - states this makes it easier for him toeat meals. Encourage adequate oral intake throughout the day with 3 meals and snacks (as needed) to meet estimated needs. Offer snack or ONS with low intake or missed meals. NUTRITION ASSESSMENT Pt reports that the food has been good. Meeting 68-69% of kcal/protein goals over the past 2 days. Discussed ONS available to curb setter helper in healing - pt declined, preferring to order these on his own. Anthropometrics: Height: 175.3 cm (5' 9") Admission Weight: Weight: 72.6 kg (160 lb) as of 01/04/2021 per patient/family report Most Recent Weight: Weight: 71.7 kg (158 lb) (01/05/21 0000) per bed scale Lowest Weight Since Admission: 71.7 kg Weight Change: - 0.9 kg (2 lb) since admission - Down 1.7 L fluid. BMI: Body mass index is 23.33 kg/m. IBW: 73 kg %IBW: 98% (based on most recent weight) Usual Body Weight: 165-170 lbs per pt. Unintentional Weight Loss: No significant wt change noted per EMR review. Pt has not noticed anyweight loss. Estimated Needs: 1775 kcal/day ([place] [address] Jeor x 1.2 Using: Most Recent Weight) 85 gm protein (1.2 gm/kg Using: Admission Weight) Fluids per MD Estimated average intake over the last 3 days: 01/05- 0 kcal, 0 gm pro - in OR : 1230 kcal, 58 gm pro which meets: 69% of estimated kcal needs and 68% of estimated protein needs. 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 B- 6 powdered doughnuts, coffee L- [facility] S- Variety- Pt would not give specific examples but states he watches the food channel and gets ideas for meals Snacks- None Beverages- Water, Diet Coke Current Intake: Sub optimal - meeting 68-69% of estimated needs over the past 2 days. Pt was NPO on 01/05. Current Diet: Nutrition (From admission, onward) Start Ordered 01/05/21 1455 ADVANCE DIET TOLERATED ONCE 01/05/21 1454 01/05/21 1455 Diet - Heart Healthy Now Question: Modified Diets Answer: Heart Healthy 01/05/21 1454 01/05/21 1325 Advance diet as tolerated while in recovery (Outpatient Discharge to Home) ONCE 01/05/21 1321 Physical Assessment: Edema: (per museum educator at 0744 today) ? LUE Edema Trace GI Assessment: ? Abdominal exam: Non-tender with Present bowel sounds, per museum educator at 0744 today. ? Stool Frequency: 0-3x/day over the last 3 days Wounds/Pressure Points: (per museum educator at 2313 on 01/07) ? Coccyx Blanchable Redness ? Elbow Bruising (purple or maroon discoloration) ? Heel Left, Right, Blanchable Redness Functional Status: PT Following OT Following Nutrition Focused Physical Exam: Completed by RD on 01/08/21: Below the Eye (fat): Slightly Bulged Fat Pads (Within Defined Limits) [place] (muscle): Slight depression (mild-moderate) Buccal (fat): Full, round/filled out cheeks (Within defined limits) Clavicle (muscle): Bone not prominent (Within defined limits)(right side protrudes some, pt states this is his baseline.) Shoulder (muscle)/Deltoid muscle: Rounded curves at arm/shoulder/neck (Within defined limits) Triceps/Biceps (fat): Ample fat tissue obvious between folds of skin (Within defined limits) Hand/Interosseous (muscle): Flat to bulging muscle (Within defined limits) Calf (muscle): Not well developed (mild-moderate)(moderate) Nutritionally-Relevant Medications, Vitamins and Minerals: Lovenox, Miralax, Senokot-S. Nutritionally-Relevant Biochemical Data: (01/08/2021) Sodium 134 L BUN 26 H Creatinine 0.71 L Allergies/Food Intolerance: Izaiah is allergic to atorvastatin. Culturally Nondenominational Needs: NA INTERVENTIONS Encouraged adequate calories and optimal protein in small, frequent meals and snacks Offered oral nutritional supplements - patient declined Conducted NFPE Obtained diet history MONITORING/EVALUATION Monitor ability to consume and tolerate adequate intake to approximate estimated needs with accomodation of preferences and tolerances until intake is sustained within desirable limits Monitor I&O, weight trends, nutrition-related labs and medications, clinical status, and planof care r/t need for nutrition intervention and provide as warranted Nutrition Therapy will reassess every 1-5 days Kindra Mark RDN, LRD [facility] Pager #[phone] are Planning - Imani Soni RN - 01/07/2021 10:52 PM CDT Problem: RISK FOR FALLS Goal: FALL PREVENTION BEHAVIOR Description: DEFINITION: Personal or family career law clerk actions to minimize risk factors that might precipitate falls in the personal environment. 1=Never demonstrated, 2=Rarely demonstrated, 3=Sometimes demonstrated, 4=Often demonstrated, 5=Consistently demonstrated. Outcome: NOC Rating 4 Flowsheets (Taken 01/07/2021 2250) Initial Score: 4 Target Score: 5 Plan of care reviewed with: Patient Patient specific goal for the day: Adequate pain control. Patient specific goal for the stay: Adequate pain control. Achieve goal for stay: By discharge Patient Progress: Patient is alert and oriented x 4 has denied pain so far this shift. Had scheduledtylenol, Dressing to left arm clean, dry and intact, VSS Will continue to monitor. Physical Therapy - Kana Pollard, PT - 01/07/2021 10:06 AM CDT Physical Therapy Acute Orthopedic Treatment Note ASSESSMENT/RECOMMENDATIONS Patient denies left hip pain at rest but rates at 7 with left LE weightbearing limiting patient's ability to walk. Patient goes supine to sit with moderate assist, goes sit to stand from raised bed with moderate assist x 2 and transfers bed to recliner with right hemiwalker and maximal to moderate assist x 2. Unable to walk d/t left hip pain with weightbearing. Recommend SNF on discharge. 6-Clicks Basic Mobility Score: 11 Activity Prescription with Nursing: Assist patient to chair 3 times per day for 30 to 60 minutes or for all meals. Use Axssist x 2 with lucas-walker. Use bathroom or commode rather than bedpan. Anticipated D/C Service needs: Low intensity setting Current medical status: Admit after fall with L olecranon fx s/p ORIF 01/05. L pubic ramus and acetabular fxs, non op Precautions: NWB LUE, WBAT BLE Ability to adhere to precautions: fair SUBJECTIVE Patient awake and cooperative. Will put weight through left UE in not in sling. Pain at rest: 0/10 - left hip. Pain with activity:7/10 OBJECTIVE Bed Mobility: Goes supine to sit with moderate assist with support to bilateral LE's and trunk. Transfers: Sit to/from stand from raised bed with moderate assist x 2. Gait: Transfers to left from bed to recliner with right hand lucas-walker and moderate to maximal assist x 2 with slow, shuffling pattern. Significant increase in left hip pain with transfers. Patient's DIPPER OPERATOR updated on transfer technique. Stairs: N/t Therapeutic Exercises: - Other: Chair alarm turned on when sitting up in recliner at completion of treatment. Education: Patient instructed to wear left UE sling when mobilizing out of bed. PLAN Continue plan of care. Today's treatment: Gait Trainin minutes Therapeutic Exercise: 0 minutes Therapeutic Activity: 25 minutes TOTAL TIMED CODES: 25 minutes TREATMENT TOTAL TIME: 25 minutes Kana Pollard PT espiratory Therapy - Emmy Chandler, PUBLIC HEALTH ASSISTANT STUDENT - 01/07/2021 8:56 AM CDT Patient was seen this morning for morning treatment of Breo. Patient did refuse treatment and would notify nursing if he has any trouble breathing. Rt to follow Clinical Team - Latrell Polanco RN - 01/07/2021 8:37 AM CDTReporting nurse completed an independent patient assessment. Reporting nurse reviewed student nursecharted patient assessment and agrees with charting as charted. Care Planning - Maegan Newsome RN - 01/07/2021 6:32 AM CDT Problem: ACUTE PAIN Goal: CLIENT SATISFACTION: PAIN MANAGEMENT Description: DEFINITION: Extent of positive perception of nursing care to relieve pain. 1=Not at all satisfied, 2=Somewhat satisfied, 3=Moderately satisfied, 4=Very satisfied, 5=Completely satisfied. Outcome: NOC Rating 3 Flowsheets (Taken 01/07/2021 0510) Initial Score: 4 Target Score: 5 Plan of care reviewed with: Patient Patient specific goal for the day: To have tolerable pain and rest Patient specific goal for the stay: To have minimal pain Achieve goal for stay: By discharge Patient Progress: Pt requested prn oxy for pain which was administered with good relief. Pt experienced SOB this shift, was put on 2L NC and sats have been >94. Pt continued coughing flam. Turn andrepo as needed, safety precautions in place, will continue to monitor. are Planning - Latrell Polanco RN - 01/06/2021 6:36 PM CDT Problem: RISK FOR FALLS Goal: FALL PREVENTION BEHAVIOR Description: DEFINITION: Personal or family career law clerk actions to minimize risk factors that might precipitate falls in the personal environment. 1=Never demonstrated, 2=Rarely demonstrated, 3=Sometimes demonstrated, 4=Often demonstrated, 5=Consistently demonstrated. Outcome: NOC Rating 4 Flowsheets (Taken 01/06/2021 1835) Initial Score: 2 Target Score: 5 Plan of care reviewed with: Patient Patient specific goal for the day: Pt to use call light appropriately. Patient specific goal for the stay: Pt to not falls Achieve goal for stay: By discharge Patient Progress: Call light in reach, belongings and urinal at side of bed. Using call light appropriately. Will continue to monitor. Respiratory Therapy - [place] CUSTOMER RETENTION SPECIALIST - 01/06/2021 2:55 PM CDTPt refused treatment. Pt continues on Breo daily. RT to follow. Physical Therapy - Tamia Carranza PT - 01/06/2021 11:42 AM CDT Physical Therapy Acute Inpatient Initial Evaluation ASSESSMENT/RECOMMENDATIONS Pt presents with limited mobility due to pain with WB on legs, NWB of LUE, and arthritic pain in RUEand shoulders. He also has some confusion/limited understanding of his deficits and the healing process. Today was able to take a couple small steps fwd/back with a hemiwalker, sling on LUE and reminders not to push with elbow on the chair when getting up. High pain levels. Left quad cane in room as well, as may work better for transfers. Recommend further therapy at low intensity setting. Will follow daily during acute stay to advance as able. 6-Clicks Basic Mobility Score: 11 Activity Prescription with Nursing: Assist patient to chair 3 times per day for 30 to 60 minutes or for all meals. Use Ax2 people, quad cane Encourage patients to do personal cares when sitting up. Use bathroom or commode rather than bedpan. Anticipated D/C Service needs: Low intensity setting Diagnosis: ICD-10-CM 1. Closed olecranon fracture, left, initial encounter S52.022A Weight bearing status - non-weight bearing PHYSICAL THERAPY EVALUATION AND TREATMENT 2. Closed pelvic ring fracture, initial encounter ([facility]) S32.810A Weight bearing status - as tolerated PHYSICAL THERAPY EVALUATION AND TREATMENT 3. Closed nondisplaced fracture of left acetabulum, unspecified portion of acetabulum, initial encounter ([facility]) S32.402A Weight bearing status - as tolerated PHYSICAL THERAPY EVALUATION AND TREATMENT Prescription: Eval and Treat Admit Date: 01/04/2021 Pertinent Medical / Surgical History: Patient has a past medical history of BPH (benign prostatic hyperplasia), COPD (chronic obstructivepulmonary disease) ([facility]), Gout, Hyperlipidemia, Hypertension, Inflammatory arthritis, Nicotine addiction, and Trigger finger, right (04/2011). Patient has a past surgical history that includes teeth extraction; rectal fissurectomy; wrist fusion (Right, 03/01/2019); and endarterectomy (Bilateral, 12/03/2019). Current medical status: Admit after fall with L olecranon fx s/p ORIF 01/05. L pubic ramus and acetabular fxs, non op Precautions: NWB LUE, WBAT BLE SUBJECTIVE Social History: Patient lives: Alone. But has family living nearby. Home environment: 2 story house Steps: 4 steps in from garage, no handrail. Once in, has a full flight to get upstairs, but is able to stay on the main level if he needs. Employment: retired Prior Level of Function: Activities of Daily Living: independent Mobility: independent with no assistive device. History of falls: Injury happened from fluke fall. Unsure if history of other falls. Home O2: no Adaptive equipment available: none Patient Concerns: Pain in R shoulder from arthritis, pain in pelvis Patient/Family Goals: Unclear. Would like to get better, be able to walk, return home. OBJECTIVE Patient seen at bedside. Patient presents with on room air. Up in chair. Cognition: Alert. Confused at times with questions/discussion. Difficult at times to cue him. Somewhat impulsive. May be a combination of hard of hearing and confusion. Pain: 3-5 at rest, rated the same with activity, but pain limited him from taking steps - especially pain with WB on L leg. Pain in both arms and legs. Posture: kyphotic Observation: L arm bandaged. Pt tends to try use it. Needed to don sling for any mobility to keephim from pushing with it. Range of Motion: Bilateral lower extremities WFL Refer to Occupational Therapy report for upper extremity range of motion. Strength: Not tested due to pain. Pain-limited. Refer to Occupational Therapy report for upper extremity strength testing. Bed Mobility: Supine to Sit: Not tested Sit to Supine: Not tested - anticipate he would need cueing and assist to not use his L elbow/arm to push/pull with. Transfers: Sit to/from Stand: moderate assistance of 1-2 to stand from chair. 1st attempt unsuccessful, as pt had sudden pain and sat back down. More assist up on the 2nd attempt - up to feet quickly, then worked on standing posture. No dizziness/lightheadedness with standing. Cues for posture. Pt immediately trying to walk, and upset with hemiwalker. somewhat impulsive and difficult to cue/direct. Cued to stop and just stand first. Balance: Static Sitting Balance: good Dynamic Sitting Balance: good Static Standing with hemiwalker Assistive Device: fair Dynamic Standing with hemiwalker Assistive Device: poor Gait: Took 2-3 small steps forward/backward with hemiwalker in R hand today. May do better with quad cane, as he kept placing hemiwalker in front of him like it was a FWW - cued that it goes on the side like a more supportive cane - pt had difficulty with. maximal assistance to manage hemiwalker. Pt struggled to take steps - very small. Worst pain with WB on LLE. He discovered that wiggling his feet was easier than lifting them. Somewhat impulsive/distracted/and difficult to direct. But very pleasant and motivated to try move. Upset with himself when he can't walk. Time spent on education - takes time to heal, etc. Stairs: Unable. Education: Patient was educated on fall prevention/safety, activity progression, precautions, supporting UE onpillow when not up moving, gait training, recommendations using call light, today through explanation. They accepted teaching and verbalized understanding. Today's Treatment Evaluation: Completed Gait trainin minutes Therapeutic exercise: 0 minutes Therapeutic activity: 20 minutes TOTAL TIME-CODED MINUTES: 20 minutes TOTAL TREATMENT TIME: 32 minutes Treatment provided: See above for cues, education, training with functional mobility. GOALS Goals to be achieved by discharge. Patient will be aware of equipment recommendations as indicated in note to allow for safe mobility. Patient will transfer sit to/from supine with minimal assistance. Patient will transfer from sit to/from stand with minimal assistance and equipment as needed to progress to safe household mobility. Patient will be able to ambulate 10 feet using quad cane with moderate assistance to progress to safe functional mobility in the home. Patient will demonstrate adequate awareness of fall prevention tactics to reduce risk of falling. PLAN Will continue daily. Physical Therapy Services: balance training bed mobility training education equipment gait training home exercise instruction neuromuscular re-education therapeutic activity therapeutic exercise transfer training Occupational Therapy - Padmini Vail, OTR/L - 01/06/2021 9:34 AM CDT Occupational Therapy Acute Care Evaluation Impression/Recommendations Recommend low intensity rehab on discharge. Patient requiring max assist of 1 for sit to/from stand and pivot transfer to right side from bed to chair. Requiring assist for ADLs. Patient lives alone. OT will continue to follow and update recommendations as appropriate. Admitting Diagnosis: ICD-10-CM 1. Closed olecranon fracture, left, initial encounter S52.022A Weight bearing status - non-weight bearing PHYSICAL THERAPY EVALUATION AND TREATMENT 2. Closed pelvic ring fracture, initial encounter ([facility]) S32.810A Weight bearing status - as tolerated PHYSICAL THERAPY EVALUATION AND TREATMENT 3. Closed nondisplaced fracture of left acetabulum, unspecified portion of acetabulum, initial encounter ([facility]) S32.402A Weight bearing status - as tolerated PHYSICAL THERAPY EVALUATION AND TREATMENT History of Present Illness: Refer to H&P for details Past Medical History: Past Medical History: Diagnosis Date BPH (benign prostatic hyperplasia) COPD (chronic obstructive pulmonary disease) ([facility]) Gout Hyperlipidemia Hypertension Inflammatory arthritis uses indomethacin rarely, generally one or two doses will suffice Nicotine addiction Trigger finger, right 04/2011 Treated with steroid injection Activity Level: As tolerated Precautions: Non weight bearing left UE, WBAT LEs Infection Control: standard Patient History Social/Home Environment: Patient lives: lives alone House: two-story Home Environment: Bed/Bath on main: Bed upstairs, bathroom and kitchen on main level. Patient states he could sleep on the main level if needed Bath Setup: Walk-In Shower with door Employment: retired Prior Level of Function Independent with: dressing, bathing, medication management, cooking, cleaning, laundry, driving, groceries and money management Assistance needed with: reports independent with all ADLs and IADLs prior to admit Comments: Patient reports that his oldest son has cancer, his younger son recently left his job totake care of his brother multimedia editor. Both sons live within 3 miles of patients home. Adaptive Equipment Available: none Present for Eval: patient Objective Activities of Daily Living: Feeding: Independent after set up using right hand Grooming: independent after set up using right hand Upper Extremity Dressing: assist for [facility] gown Lower Extremity Dressing: Dependent for donning slipper socks Bathing: Not assessed Toileting: Not assessed Homemaking: not assessed Comments: OT continue to follow for ADL instruction and use of AE. Transfers: Bed: min assist to transfer from supine (with head of bed raised) to edge of bed. Max assist to stand from edge of bed. Chair: Max assist of 1 for stand pivot transfer from bed to chair, transferring to right side. Toilet: Not assessed Tub/Shower: Not assessed Comments: Patient "shakey" with standing, right leg buckled 1x Pain: Pain at rest: 3/10 Pain during activity: 310 Location: Left groin with standing/transfers. Right shoulder pain with ROM Upper Extremity Function: Range of Motion: Right: WFL with exception of right shoulder from history of arthritis, crepitus with shoulder flexion Left: Left elbow and wrist immobilized status post olecranon ORIF 01/05/21. Digit AROM WFL, shoulder flexion limited secondary to history of arthritis but able to flex and abduct shoulder to at least 90 degrees. Strength: Right: WFL Left: not assessed Endurance: within functional limits Coordination: intact Sensation: intact Edema: mild edema left hand Dominant Hand: right Comments: Cues to maintain non weight bearing left UE during transfers Orientation: oriented to time and place Cognition: intact Attention: WFL, occasional re-direction and repeat of instructions for left digit AROM exercises Following Directions: occasional repetition of directions Safety Awareness: intact Impulsivity: none observed Comments: Continue to assess functional cognitioin Education Education/Training provided: Role of OT, plan of care Learners: Patient Readiness: Acceptance Method of Training: Verbal education, demonstration Response: Verbalized/demonstrated understanding, will benefit from continued reinforcement Adaptive Equipment Recommendations Adaptive Equipment Recommended: Continue to assess; recommend shower chair, possible raised toilet seat, saw filer, possible sock aid Plan to obtain adaptive equipment: To further assess. Assessment/Plan Assessment: Patient demonstrates decreased UE strength, decreased independence with ADL/IADL tasks and decreased independence with functional mobility Patient showing a decrease in ADL/transfer performance and will benefit from continued OT. Plan: Patient to be seen 3-5 times a week to work toward above goals Treatment plan will consist of Friday thru Friday sessions Goals Patient/Family Stated Goal for Session: in agreement to OT evaluation Short Term Goals: Patient will complete left shoulder and digit AROM exercises independently Patient will complete grooming task safely standing at the sink withSBAusing adaptive equipment as needed. Patient will complete LB dressing safely withSBAusing adaptive equipment as needed. Patient will complete toileting safely withSBAusing adaptive equipment as needed. Patient will complete functional transfers safely withSBAusing adaptive equipment as needed. Patient will further participate with cognitive assessment to increase safety with functional tasks. Patient will have AE in place to increase safety with ADLs by discharge Treatment Provided Evaluation; see assessment above Therapeutic exercise; Completed 6 pack of AROM exercises for left hand. Required occasional cues anddemonstration. Provided with written handout. Encouraged to complete AROM exercises for left hand frequently throughout the day. Completed AROM left shoulder within tolerance. Left UE positioned on pillow. Patient positioned safely in chair with call light and tray table within reach. Charges Treatment/Minutes: Today's Evaluation/Treatment Evaluation Therapeutic exercise: 15 minutes Total for time-based codes: 15 minutes Total treatment time: 50 minutes Evaluation Complexity PMH/Comorbidities that affect Occupational Performance: see one chart Occupational Profile/Medical and Therapy History: LOW - Brief history relating to presenting problem Patient Assessment: LOW - 1-3 performance deficits relating to physical, cognitive, psychosocial limitations/restrictions Clinical Decision Making: LOW - Low complexity, limited amount of treatment options, no assessment modification, no comorbidities Evaluation Complexity: Low Therapist Alpha Pager Number: Weekend pager [phone] are Planning - Edie Thomas RN - 01/06/2021 1:29 AM CDT Problem: ACUTE PAIN Goal: CLIENT SATISFACTION: PAIN MANAGEMENT Description: DEFINITION: Extent of positive perception of nursing care to relieve pain. 1=Not at all satisfied, 2=Somewhat satisfied, 3=Moderately satisfied, 4=Very satisfied, 5=Completely satisfied. Outcome: NOC Rating 3 Flowsheets (Taken 01/06/2021 0127) Initial Score: 3 Target Score: 4 Plan of care reviewed with: Patient Patient specific goal for the day: To have tolerable pain Patient specific goal for the stay: To have minimal pain Achieve goal for stay: By discharge Patient Progress: Patient reports good relief with PRN oxycodone. Elevation used for additional comfort. PT/OT following. Care Planning - Avril Sharma RN - 01/05/2021 3:36 PM CDT Problem: RISK FOR FALLS Goal: FALL PREVENTION BEHAVIOR Description: DEFINITION: Personal or family career law clerk actions to minimize risk factors that might precipitate falls in the personal environment. 1=Never demonstrated, 2=Rarely demonstrated, 3=Sometimes demonstrated, 4=Often demonstrated, 5=Consistently demonstrated. Flowsheets (Taken 01/05/2021 9667) Patient specific goal for the day: Pt to use call light appropriately. Patient specific goal for the stay: Pt to not falls Achieve goal for stay: By discharge Patient Progress: Call light in reach, belongings and urinal at side of bed. Using call light appropriately. Will continue to monitor. Nutrition Team - Kindra Mark RD - 01/05/2021 12:03 PM CDT Nutrition Therapy Initial Assessment Hospital Day: 1 days Active Problems: - Right superior/inferior pubic ramus fractures extending through the pubic symphysis with questionable left inferior pubic ramus fracture. - Significantly displaced intra-articular fracture. PMH: BPH, COPD, gout, HLD, HTN, inflammatory arthritis, nicotine addiction. Recommendations: Advance diet as medically able. NUTRITION ASSESSMENT Pt was out of room and in OR today. Did not see any family present. Anthropometrics: Height: 175.3 cm (5' 9") Admission Weight: Weight: 72.6 kg (160 lb) as of 01/04/2021 per patient/family report Most Recent Weight: Weight: 71.7 kg (158 lb) (01/05/21 0000) per bed scale Lowest Weight Since Admission: 71.7 kg Weight Change: - 0.9 kg (2 lb) since admission - Difference in scales BMI: Body mass index is 23.33 kg/m. IBW: 73 kg %IBW: 98% (based on most recent weight) Usual Body Weight: Unknown. Unintentional Weight Loss: No significant wt change noted per EMR review. Estimated Needs: 1775 kcal/day ([place] [address] Jeor x 1.2 Using: Most Recent Weight) 85 gm protein (1.2 gm/kg Using: Admission Weight) Fluids per MD Intake Records: Intake Prior to Admit: Unknown at this time. Current Intake: Pt is NPO. Current Diet: Nutrition (From admission, onward) Start Ordered 01/05/21 1325 Advance diet as tolerated while in recovery (Outpatient Discharge to Home) ONCE 01/05/21 1321 01/04/21 2335 Diet - NPO (except meds) Now Question: Standard Diets Answer: NPO (except meds) 01/04/21 2337 Physical Assessment: Edema: (per museum educator at 0903 today) ? LUE Edema 1 GI Assessment: ? Abdominal exam: Non-tender with Hypoactive bowel sounds, per museum educator at 0903 today. ? Stool Frequency: Pt has not had a documented BM since admission Wounds/Pressure Points: (per museum educator at 0903 today) ? Coccyx Blanchable Redness ? Elbow Bruising (purple or maroon discoloration) ? Heel Left, Right, Blanchable Redness Functional Status: Respiratory Nutrition Focused Physical Exam: Deferred at this time due to unable to visit. Nutritionally-Relevant Medications, Vitamins and Minerals: Lovenox, Senokot-S. Nutritionally-Relevant Biochemical Data: (01/05/2021) Glucose 120 H Sodium 130 L BUN 28 H Allergies/Food Intolerance: Izaiah is allergic to atorvastatin. Culturally Nondenominational Needs: NA INTERVENTIONS EMR reviewed MONITORING/EVALUATION Monitor diet advancement Monitor ability to consume and tolerate adequate intake to approximate estimated needs with accomodation of preferences and tolerances until intake is sustained within desirable limits Monitor NPO duration Monitor I&O, weight trends, nutrition-related labs and medications, clinical status, and planof care r/t need for nutrition intervention and provide as warranted Nutrition Therapy will reassess every 1-4 days Kindra Mark RDN, LRD Alpha Pager #[phone] Respiratory Therapy - Nani Lawton RRT - 01/05/2021 10:30 AM CDTPatient was seen to assess need for Nicotine Replacement Therapy. Patient is a 1.5 ppd smoker. He denies cravings and declines Nicotine patches. Will order Nicotine lozenges PRN per NRT protocol. Patient declined tobacco education at this time. Nani Lawton BS, CUSTOMER RETENTION SPECIALIST, CTTS Disease Management Respiratory Care Services [facility] [phone] ase Sanjana Reyez RN - 01/05/2021 9:26 AM CDTCASE MANAGEMENT / SOCIAL SERVICE TRANSITION PLAN - INITIAL ASSESSMENT TRANSITION PLAN: Awaiting Medical Doctor Recommendations for Transition Will Continue to Follow for Support and Progression Towards Final Transition Plan BARRIERS TO TRANSITION: Medical barriers:. OR with ortho COMMENTS / PATIENT AND FAMILY RESPONSE TO PLAN: Met with the patient at bedside to review the role of Case Management, provide supportive counseling and review disposition. Patient functions independently at baseline. Patient lives in a two story home with 13 steps. Patient has two sons that live nearby for assistance if needed. Patient physical address if needing HH is [facility] [address] Patient going to OR, therapy will need to see. Discharge needs to be determined. ADMISSION DX: Fall PATIENT STATUS: OP in a Bed RELEASE OF INFORMATION: Yes -- verbal for: discharge planning SOURCES OF INFORMATION (See demographics for contact information): Medical Doctor Medical Record Patient CURRENT LIVING SITUATION / LEVEL OF ASSISTANCE: Lives alone COMMUNITY SERVICES: None HEALTHCARE DIRECTIVE: Yes-On File and reviewed POWER OF FELL CUTTER: Healthcare Power of Asphalt Roller Operator FINANCIAL CONCERNS: No Concerns PRIMARY CARE PHYSICIAN: No Tamai Saleh PA-C : No IS PATIENT'S ADMISSION ASSOCIATED WITH TIA, ISCHEMIC, OR HEMORRHAGIC STROKE?: No LANGUAGE / COMMUNICATION BARRIERS: No PATIENT / SUBSTITUTE DECISION MAKER GOAL UPON TRANSITION: First Choice: Home: Family/Friend Support and No Services ANTICIPATED NEEDS, TRANSITION CHOICES OFFERED: Transitional Care RESOURCE(S) PROVIDED: nothing needed at this time DOES PATIENT HAVE CLOTHING TO WEAR AT DISCHARGE? Yes ANTICIPATED MODE OF TRANSPORT UPON DISCHARGE: Family Car VERIFIED CORRECT PHARMACY IS ENTERED FOR DISCHARGE: Yes - Pharmacy: . [facility] [facility] CURRENT READMISSION RISK SCORE Predictive Risk Score Risk of Unplanned Readmission: 7.7 Please refer to readmission risk assessment flowsheet for further details. SIGNED: Sanjana Valencia RN [facility] Rod ENCARNACION RNpull tab dealer Pager [phone] Routing #[phone] Clinical Team - Anu Fall RN - 01/05/2021 6:55 AM CDTSkin assessed with EVER Johnson Blanchable redness to bilateral heels Blanchable redness to coccyx Bruising to Left elbow Gripper socks offered ( pt refused), Fall risk band on, bed alarm on, Call light and possessions within reach. are Planning - Anu Fall RN - 01/05/2021 4:10 AM CDT Problem: RISK FOR FALLS Goal: FALL PREVENTION BEHAVIOR Description: DEFINITION: Personal or family career law clerk actions to minimize risk factors that might precipitate falls in the personal environment. 1=Never demonstrated, 2=Rarely demonstrated, 3=Sometimes demonstrated, 4=Often demonstrated, 5=Consistently demonstrated. Flowsheets (Taken 01/05/2021 0913) Initial Score: 2 Target Score: 5 Plan of care reviewed with: Patient Patient specific goal for the day: Pt to use call light appropriately. Patient specific goal for the stay: Pt to not falls Achieve goal for stay: By discharge Patient Progress: Pt offered gripper socks and declined. Call light in reach, fall band applied, belongings and urinal at side of bed. Will continue to monitor. Operative Note - Efrain Fay MD - 01/05/2021 1:00 AM [facility] PATIENT NAME: IZAIAH YEUNG DATE OF SERVICE: 01/05/2021 JORDYN: [id number] SURGEON: Efrain Fay MD. ASSISTANTS: Artis Sawyer PA-C. Lurdes Trejo MD, 1st-year orthopedic resident. PREOPERATIVE DIAGNOSES: 1. Left displaced olecranon fracture. 2. Stable pelvic ring fracture. POSTOPERATIVE DIAGNOSES: 1. Left displaced olecranon fracture. 2. Stable pelvic ring fracture. PROCEDURES PERFORMED: 1. Open reduction with internal fixation of left olecranon fracture with six 3.5-mm cannulated screw. 2. Nonoperative treatment without manipulation of left stable, pelvic ring injury with fractures ofbilateral superior and inferior pubic ramus and left anterior wall acetabular fracture. ANESTHESIA: General. BLOOD LOSS: 30 mL. COMPLICATIONS: None. SPECIMEN SENT: None. IMPLANTS USED: Synthes 6.5-mm cannulated screw, 130 mm in length, a 32-mm thread with a washer. INDICATIONS FOR PROCEDURE: This is a 65-year-old male who had a fall yesterday and sustained multiple injuries including pelvic ring injury as well as a left displaced olecranon fracture. Discussed with him treatment options, both operative and nonoperative treatment. He elected to proceed with operative intervention of his left olecranon fracture. We will plan to treat his pelvic ring injury nonoperatively. We discussed the risks of surgery. Risks include bleeding, pain, infection, injury to arteries, veins, nerves, reoperation, hardware failure, loss of life or limb. The patient understands all these risks. All questions were answered and consent was obtained. DETAILS OF PROCEDURE: The patient was brought to the operating suite and placed supine on the operating room table. General endotracheal anesthesia was administered by the anesthesiologist as well aspreoperative antibiotics. Tourniquet was placed on the left upper arm. Left arm was then prepped and draped in the usual, sterile fashion. Final time-out was performed to verify this was the correctpatient as well as the correct operative site, that being the left elbow. Everyone was in agreementand procedure was begun. Standard posterior approach to the olecranon was performed. Incision was made. Dissection was taken down to the fracture. Fracture was cleaned of hematoma and then reduced with pointed reduction forceps. Using C-arm guidance, we then drilled and placed a wire for a 6.5-mm cannulated screw. This was verified to be in appropriate position on AP and lateral x-ray. It was then measured to be 130 mm. We then drilled and placed a 130-mm, 6.5-mm screw with 32-mm threads and a washer. This provided excellent compression along the fracture and at this time the pointed reduction clamp was removed as well as the guidewire. Elbow x-rays were obtained, AP and lateral and showed anatomic reduction of the fracture. We also took the elbow through a range of motion under live fluoroscopy, on the lateralview showed a stable fracture. At this time, the wounds were then irrigated with copious amounts ofirrigation, closed in a layered fashion. Sterile dressings were applied as well as a well-padded jerome ster splint. We will treat the pelvis with weightbearing as tolerated of bilateral lower extremities, nonweightbearing on the left upper extremity and repeat x-rays of the pelvis and elbow in 6 weeks. Efrain Fay MD Receipt: [id number] Trans ID: [id number] TIMBER MANAGEMENT TECHNICIAN CST documented in this encounter Plan of Treatment Date Type Specialty Care Team Description 01/23/2021 Office Visit Orthopedics Rahat Sawyer PA [address] [place] [address] [phone] 01/25/2021 Immunization Family Practice 02/20/2021 Office Visit Orthopedics Bryce Nelson PA-C [address] [place] [address] [phone] 02/20/2021 Office Visit Orthopedics Efrain Fay MD [address] [place] [address] [phone] Name Type Priority Associated Diagnoses Order S chedule COMPLETE BLOOD COUNT WITH Lab Routine Ea rly AM draw for labs DIFFERENTIAL until discontin ued starting 2020, 6 completed BASIC METABOLIC PANEL Lab Routine Early AM draw for labs until discontin ued starting 2020, 6 completed documented as of this encounter Implants Implanted Type Area Seismic Engineer Device Shelf Model / Identifier Expiration Serial / Date Lot Patch Vascuguard 0.8x8cm N [id number] Ea1 - [id number] Cardiovascul ar Right: EPPS 06/21/2024 [id number] / Implanted: 12/03/2019 by Trinh Schwartz DO at [facility] (Quantity not on file) FEMORAL / [id number] Screw Bossman Synt [id number] N 208.448 Ea1 - [id number] Ortho Ot her Left: J&J DEPUY 208.448 / Implanted: Qty: 1 on 01/05/2021 by Efrain Fay MD at [facility] ELBOW SYNTHES / Wrist Taper Post 7.5x16mm N [id number] Ea1 - Sn/A Right: ARTHROSURFACE 06/04/2023 [id number] / Implanted: Qty: 1 on 03/01/2019 by Rafiq Osborn MD at [facility] WRIST N/A / [id number] Description:Verified by Dr Peace and s urgical staff Wrist Capitate 15mm [id number] N [id number] Ea1 - Sn/A Right: WRIST ARTHROSURFACE 06/08/2023 [id number] / Implanted: Qty: 1 on 03/01/2019 by Rafiq Osborn MD at [facility] N/A / [id number] Description:Verified by Dr Peace and s urgical staff Explanted Type Area Seismic Engineer Device Shelf Model / Identifier Expiration Serial / Date Lot Jerry Drill Tip Marked 2.8x300 N 292.81 Ea1 - [id number] Ortho L eft: J&J DEPUY 292.81 / Implanted: 01/05/2021 by Efrain Fay MD (Quantity not on file) Other ELBOW SYNTHES / Explanted: Qty: 1 on 01/05/2021 at [facility] documented as of this encounter Procedures Procedure Name Priority Date/Time Associated Comments Diagnosis LAB ONLY-COMPLETE Routine 01/10/2021 7:15 Result s for this BLOOD COUNT WITH AM CDT procedure a re in DIFFERENTIAL the results section. BASIC METABOLIC PANEL Routine 01/10/2021 7:15 Re sults for this AM CDT procedure are i n the results section. LAB ONLY-COMPLETE Routine 01/10/2021 7:15 Result s for this BLOOD COUNT WITH AM CDT procedure a re in DIFFERENTIAL the results section. XRAY CHEST PA AND PAIGE 01/09/2021 11:56 Result s for this LATERAL AM CDT procedure are i n the results section. LAB ONLY-COMPLETE Routine 01/09/2021 7:30 Result s for this BLOOD COUNT WITH AM CDT procedure a re in DIFFERENTIAL the results section. BASIC METABOLIC PANEL Routine 01/09/2021 7:30 Re sults for this AM CDT procedure are i n the results section. LAB ONLY-COMPLETE Routine 01/09/2021 7:30 Result s for this BLOOD COUNT WITH AM CDT procedure a re in DIFFERENTIAL the results section. COVID-19 SCREEN TO STAT 01/08/2021 3:55 Resul ts for this RULE OUT INFECTIVE PM CDT procedure are in STATUS the results section. LAB ONLY-COMPLETE Routine 01/08/2021 6:06 Result s for this BLOOD COUNT WITH AM CDT procedure a re in DIFFERENTIAL the results section. BASIC METABOLIC PANEL Routine 01/08/2021 6:06 Re sults for this AM CDT procedure are i n the results section. LAB ONLY-COMPLETE Routine 01/08/2021 6:06 Result s for this BLOOD COUNT WITH AM CDT procedure a re in DIFFERENTIAL the results section. LAB ONLY-COMPLETE Routine 01/07/2021 6:41 Result s for this BLOOD COUNT WITH AM CDT procedure a re in DIFFERENTIAL the results section. BASIC METABOLIC PANEL Routine 01/07/2021 6:41 Re sults for this AM CDT procedure are i n the results section. LAB ONLY-COMPLETE Routine 01/07/2021 6:41 Result s for this BLOOD COUNT WITH AM CDT procedure a re in DIFFERENTIAL the results section. LAB ONLY-COMPLETE Routine 01/06/2021 6:19 Result s for this BLOOD COUNT WITH AM CDT procedure a re in DIFFERENTIAL the results section. BASIC METABOLIC PANEL Routine 01/06/2021 6:19 Re sults for this AM CDT procedure are i n the results section. LAB ONLY-COMPLETE Routine 01/06/2021 6:19 Result s for this BLOOD COUNT WITH AM CDT procedure a re in DIFFERENTIAL the results section. XRAY C-ARM Routine 01/05/2021 12:59 Results for this PM CDT procedure are i n the results section. OPEN REDUCTION 01/05/2021 10:47 Olecranon fracture INTERNAL FIXATION AM CDT FEMUR CT SPINE CERVICAL STAT 01/05/2021 10:28 Result s for this WITHOUT CONTRAST AM CDT procedure a re in the results section. LAB ONLY-COMPLETE Routine 01/05/2021 6:16 Result s for this BLOOD COUNT WITH AM CDT procedure a re in DIFFERENTIAL the results section. BASIC METABOLIC PANEL Routine 01/05/2021 6:16 Re sults for this AM CDT procedure are i n the results section. LAB ONLY-COMPLETE Routine 01/05/2021 6:16 Result s for this BLOOD COUNT WITH AM CDT procedure a re in DIFFERENTIAL the results section. URINALYSIS MICROSCOPIC STAT 01/05/2021 12:43 R esults for this AM CDT procedure are i n the results section. URINALYSIS DIPSTICK STAT 01/05/2021 12:43 Resu lts for this REFLEX TO MICROSCOPIC AM CDT proced ure are in the results section. CT ABDOMEN PELVIS WITH STAT 01/04/2021 11:28 R esults for this CONTRAST PM CDT procedure are i n the results section. CT EXTREMITY UPPER STAT 01/04/2021 11:27 Resul ts for this WITHOUT CONTRAST LT PM CDT procedur e are in the results section. LAB ONLY-ABORH STAT 01/04/2021 10:26 Results f or this PM CDT procedure are i n the results section. LAB ONLY-COMPLETE STAT 01/04/2021 10:23 Result s for this BLOOD COUNT WITH PM CDT procedure a re in DIFFERENTIAL the results section. TYPE AND SCREEN STAT 01/04/2021 10:23 Results for this PM CDT procedure are i n the results section. PROTIME/INR STAT 01/04/2021 10:23 Results for this PM CDT procedure are i n the results section. LACTIC ACID STAT 01/04/2021 10:23 Results for this PM CDT procedure are i n the results section. COMPREHENSIVE STAT 01/04/2021 10:23 Results fo r this METABOLIC PANEL PM CDT procedure ar e in the results section. LAB ONLY-COMPLETE STAT 01/04/2021 10:23 Result s for this BLOOD COUNT WITH PM CDT procedure a re in DIFFERENTIAL the results section. XRAY ELBOW MIN 3 VIEWS PAIGE 01/04/2021 9:40 R esults for this LT PM CDT procedure are i n the results section. XRAY HUMERUS MIN 2 PAIGE 01/04/2021 9:40 Resul ts for this VIEWS LT PM CDT procedure are i n the results section. XRAY PELVIS WITH HIP 1 PAIGE 01/04/2021 9:39 R esults for this VIEW SHERYL PM CDT procedure are i n the results section. documented in this encounter Results LAB ONLY-COMPLETE BLOOD COUNT WITH DIFFERENTIAL (01/10/2021 7:15 AM CDT) Pathologist Sig nature WBC 13.2 (H) 4.0 - 11.0 K/uL [address] RBC 3.73 (L) 4.40 - 5.[address] M/uL Hemoglobin 11.2 (L) 13.5 - 17.[address] g/dL Hematocrit 32.4 (L) 40.0 - 50.0 % [address] MCV 86.9 80.0 - 98.[address] MCH 30.0 25.5 - 34.[address] MCHC 34.6 31.5 - 36.[address] g/dL RDW-CV 12.1 11.5 - 15.5 % [address] RDW-SD 38.5 35.5 - 50.[address] Platelet Count 219 140 - 400 K/uL [address] MPV 10.3 8.5 - 12.[address] Seg Neut Absolute 8.9 (H) 1.8 - 8.0 K/uL [address] Lymphocytes Absolute 2.4 0.8 - 4.1 K/uL [place] [address] [facility] Monocytes Absolute 1.4 (H) 0.0 - 1.0 K/uL [address] Eosinophils Absolute 0.2 0.0 - 0.7 K/uL [place] [address] [facility] Basophil Absolute 0.1 0.0 - 0.2 K/uL [address] Immature Granulocyte 0.23 (H) 0.00 - 0.[address] Absolute K/uL Neutrophils Abs. 8,900 /uL [address] (Segs and Bands) Neutrophils Percent 67.7 % [address] Lymphocytes Percent 18.2 % [address] Monocytes Percent 10.9 % [address] Immature Granulocyte 1.7 % [address] Percent Eosinophils Percent 1.1 % [address] Basophil Percent 0.4 % [address] Nucleated RBC 0 /[address] Specimen Blood - Blood specimen (specimen) Performing Organization Address City/State/Zipcode Phone Number [address] [place] [address] BASIC METABOLIC PANEL (01/10/2021 7:15 AM CDT) Pathologist Sig nature Glucose 101 (H) 70 - 100 mg/dL [address] BUN 25 (H) 6 - 22 mg/dL [address] Creatinine 1.19 0.80 - 1.[address] mg/dL BUN/Creatinine Ratio 21.0 10.0 - 25.0 [facility] Sodium 135 135 - 145 meq/L [address] Potassium 5.2 3.5 - 5.3 meq/L [address] Chloride 105 99 - 110 meq/L [address] CO2 17 (L) 20 - 29 meq/L [address] Anion Gap with K 18 6 - 20 meq/L [address] Calcium 9.1 8.5 - 10.5 mg/dL [address] Age [address] eGFR Non- 61 >=[address] Montenegrin mL/min/1.73m2 eGFR 74 >=[address] mL/min/1.73m2 Specimen Blood - Blood specimen (specimen) Performing Organization Address City/State/Zipcode Phone Number [address] [place] [address] XRAY CHEST PA AND LATERAL (01/09/2021 11:56 AM CDT) Specimen Narrative Performed At [facility] Patient Name: IZAIAH YEUNG Date of : 1955 Procedure: XRAY CHEST PA AND LATERAL Date of Service: 01/09/2021 EXAM: XRAY CHEST PA AND LATERAL INDICATION:cough, left chest wall pain w ith cough, hx of trauma COMPARISON(S): 02/25/2018 IMPRESSION/FINDINGS: New slight elevation left hemidia phragm. Hyperinflation of the lungs. Normal cardiac size and p ulmonary vascularity. Hypertrophic change of the spine. Stable anterior wedging of a few mid thoracic vertebral bodies. Degenerative c hange right shoulder. Osteocartilaginous loose arleen s left shoulder. Finalized by: Nan Dobbins MD on 01/09/2021 12:47 PM CDT Patient/Procedure Information: [facility] MRN/JORDYN: [id number] Order Number: [id number] Accession Number: [id number] Ordering Provider: IZAIAH OVIEDO Authorizing Provider: IZAIAH OVIEDO Procedure Note Interface, Radiantres - 01/09/2021 12:49 PM CDT Patient Name: IZAIAH YEUNG Date of : 1955 Procedure: XRAY CHEST PA AND LATERAL Date of Service: 01/09/2021 EXAM: XRAY CHEST PA AND LATERAL INDICATION:cough, left chest wall pain w ith cough, hx of trauma COMPARISON(S): 02/25/2018 IMPRESSION/FINDINGS: New slight elevatio n left hemidiaphragm. Hyperinflation of the lungs. Normal cardiac size and pulmonary vascularity. Hypertrophic change of the spine. Stable anterior wedging of a few mid thoracic vertebral bodies. Deg enerative change right shoulder. Osteocartilaginous loose bodies left shoulder. Finalized by: Nan Dobbins MD on 01/09/2021 12:47 PM CDT Patient/Procedure Information: [facility] MRN/JORDYN: [id number] Order Number: [id number] Accession Number: [id number] Ordering Provider: IZAIAH OVIEDO Authorizing Provider: IZAIAH OVIEDO Performing Organization Address City/State/Zipcode Phone Number [id number] LAB ONLY-COMPLETE BLOOD COUNT WITH DIFFERENTIAL (01/09/2021 7:30 AM CDT) [facility] nature WBC 11.4 (H) 4.0 - 11.0 K/uL [address] RBC 3.64 (L) 4.40 - 5.80 [place] [address] [facility] M/uL Hemoglobin 11.0 (L) 13.5 - 17.[address] g/dL Hematocrit 32.1 (L) 40.0 - 50.0 % [address] MCV 88.2 80.0 - 98.[address] MCH 30.2 25.5 - 34.[address] MCHC 34.3 31.5 - 36.[address] g/dL RDW-CV 12.2 11.5 - 15.5 % [address] RDW-SD 39.5 35.5 - 50.[address] Platelet Count 218 140 - 400 K/uL [address] MPV 10.4 8.5 - 12.[address] Seg Neut Absolute 7.7 1.8 - 8.0 K/uL [address] Lymphocytes Absolute 2.2 0.8 - 4.1 K/uL [place] [address] [facility] Monocytes Absolute 1.2 (H) 0.0 - 1.0 K/uL [address] Eosinophils Absolute 0.2 0.0 - 0.7 K/uL [place] [address] [facility] Basophil Absolute 0.0 0.0 - 0.2 K/uL [address] Immature Granulocyte 0.10 (H) 0.00 - 0.[address] Absolute K/uL Neutrophils Abs. 7,700 /uL [address] (Segs and Bands) Neutrophils Percent 67.1 % [address] Lymphocytes Percent 19.6 % [address] Monocytes Percent 10.7 % [address] Immature Granulocyte 0.9 % [address] Percent Eosinophils Percent 1.3 % [address] Basophil Percent 0.4 % [address] Nucleated RBC 0 /[address] Specimen Blood - Blood specimen (specimen) Performing Organization Address [facility] Phone Number [address], [place] [address] BASIC METABOLIC PANEL (01/09/2021 7:30 AM CDT) Pathologist [facility] Glucose 98 70 - 100 mg/dL [address] BUN 22 6 - 22 mg/dL [address] Creatinine 0.76 (L) 0.80 - 1.[address] mg/dL BUN/Creatinine Ratio 28.9 (H) 10.0 - 25.[address] Sodium 133 (L) 135 - 145 meq/L [address] Potassium 4.1 3.5 - 5.3 meq/L [address] Chloride 101 99 - 110 meq/L [address] CO2 25 20 - 29 meq/L [address] Anion Gap with K 11 6 - 20 meq/L [address] Calcium 8.7 8.5 - 10.[address] mg/dL Age [address] eGFR Non- >90 >=[address] [place] mL/min/1.73m2 eGFR >90 >=[address] mL/min/1.73m2 Specimen Blood - Blood specimen (specimen) Performing Organization Address [facility]/State/Zipcode Phone Number [facility] [address] [place] [address] COVID-19 SCREEN TO RULE OUT INFECTIVE STATUS (01/08/2021 3:55 PM CDT) SARS CoV RNA, RT Not Detected Not Detected [facility] PCR LABORATORY Specimen Respiratory - Entire nasopharynx (body s tructure) Narrative Performed At Your Covid-19 test is negative: [facility] LABORATORY 1)Avoiding close contact is still recommended. 2)Cover your coughs and snee zes. 3)Wash your hands often with soap and water for at least 20 seconds or use an alcohol-based door liner containing over 60% alcohol. Avoid touching your face. 4)Avoid sharing personal household items, including dishes, cups, utensils, towels, clothing, or bedding. These items should be cleaned thoroughly with soap and water after use. Clean all "high touch" surfaces in your home daily. 5) Monitor your symptoms. Contact your provider if you are feeling worse. If you have shortness of breath or difficulty breathing, call 911. This test was performed by polymerase chain reaction (PCR) on the [employer] instrument. This assay is for in vitro diagnostic use under FDA Emergency Use Authorization only. Optimal performance of this test requires appropriate specimen collection, storage, and transport to the test site. Detection of SARS-CoV-2 RNA may be affected by sample collection methods, patient factors (eg, presence of symptoms), and/or stage of infection. False-negative results may arise from degradation of viral RNA during shipping/storage. Results should be interpreted by a trained professional in conjunction with the pat ient s history and clinical signs and symptoms, and epidemiological risk factors. Negative (Not Detected) results do not preclude infection with the SARS-CoV-2 virus and should not be the sole basis of patient treatment/management or public health decision. Follow up testing should be performed according to the current CDC recommendations. Performing Organization Address City/State/Zipcode Phone Number [facility] [address] [place] [address] LABORATORY [address] LAB ONLY-COMPLETE BLOOD COUNT WITH DIFFERENTIAL (01/08/2021 6:06 AM CDT) Pathologist Sig nature WBC 11.0 4.0 - 11.0 K/uL [address] RBC 3.57 (L) 4.40 - 5.[address] M/uL Hemoglobin 10.7 (L) 13.5 - 17.[address] g/dL Hematocrit 30.8 (L) 40.0 - 50.0 % [address] MCV 86.3 80.0 - 98.[address] MCH 30.0 25.5 - 34.[address] MCHC 34.7 31.5 - 36.[address] g/dL RDW-CV 12.1 11.5 - 15.5 % [address] RDW-SD 38.0 35.5 - 50.[address] Platelet Count 185 140 - 400 K/uL [address] MPV 10.8 8.5 - 12.[address] Seg Neut Absolute 7.5 1.8 - 8.0 K/uL [address] Lymphocytes Absolute 2.1 0.8 - 4.1 K/uL [place] [address] [facility]INI C Monocytes Absolute 1.1 (H) 0.0 - 1.0 K/uL [address] Eosinophils Absolute 0.1 0.0 - 0.7 K/uL [address] Basophil Absolute 0.1 0.0 - 0.2 K/uL [address] Immature Granulocyte 0.08 (H) 0.00 - 0.[address] Absolute K/uL Neutrophils Abs. 7,500 /uL [address] (Segs and Bands) Neutrophils Percent 68.2 % [address] Lymphocytes Percent 19.5 % [address] Monocytes Percent 10.2 % [address] Immature Granulocyte 0.7 % [address] Percent Eosinophils Percent 0.9 % [address] Basophil Percent 0.5 % [address] Nucleated RBC 0 /[address] Specimen Blood - Blood specimen (specimen) Performing Organization Address City/State/Zipcode Phone Number [address], [place] [address] BASIC METABOLIC PANEL (01/08/2021 6:06 AM CDT) Pathologist [place] [facility] Glucose 97 70 - 100 mg/dL [address] BUN 26 (H) 6 - 22 mg/dL [address] Creatinine 0.71 (L) 0.80 - 1.[address] mg/dL BUN/Creatinine Ratio 36.6 (H) 10.0 - 25.[address] Sodium 134 (L) 135 - 145 meq/L [address] Potassium 3.9 3.5 - 5.3 meq/L [address] Chloride 104 99 - 110 meq/L [address] CO2 23 20 - 29 meq/L [address] Anion Gap with K 11 6 - 20 meq/L [address] Calcium 8.5 8.5 - 10.[address] mg/dL Age 65 Years [facility] eGFR Non- >90 >=[address] [place] mL/min/1.73m2 eGFR >90 >=[address] mL/min/1.73m2 Specimen Blood - Blood specimen (specimen) Performing Organization Address City/State/Zipcode Phone Number [address] [place] [address] [phone] LAB ONLY-COMPLETE BLOOD COUNT WITH DIFFERENTIAL (01/07/2021 6:41 AM CDT) Pathologist [facility] [place] [facility] WBC 12.1 (H) 4.0 - 11.0 K/uL [address] RBC 3.48 (L) 4.40 - 5.[address] M/uL Hemoglobin 10.7 (L) 13.5 - 17.[address] g/dL Hematocrit 30.5 (L) 40.0 - 50.0 % [address] MCV 87.6 80.0 - 98.[address] MCH 30.7 25.5 - 34.[address] MCHC 35.1 31.5 - 36.[address] g/dL RDW-CV 12.3 11.5 - 15.5 % [address] RDW-SD 39.6 35.5 - 50.[address] Platelet Count 175 140 - 400 K/uL [address] MPV 10.5 8.5 - 12.[address] Seg Neut Absolute 7.8 1.8 - 8.0 K/uL [address] Lymphocytes Absolute 2.8 0.8 - 4.1 K/uL [place] [address] [facility] Monocytes Absolute 1.3 (H) 0.0 - 1.0 K/uL [address] Eosinophils Absolute 0.1 0.0 - 0.7 K/uL [place] [address] CLINI C Basophil Absolute 0.0 0.0 - 0.2 K/uL [address] Immature Granulocyte 0.08 (H) 0.00 - 0.[address] Absolute K/uL Neutrophils Abs. 7,800 /uL [address] (Segs and Bands) Neutrophils Percent 64.9 % [address] Lymphocytes Percent 23.5 % [address] Monocytes Percent 10.3 % [address] Immature Granulocyte 0.7 % [address] Percent Eosinophils Percent 0.4 % [address] Basophil Percent 0.2 % [address] Nucleated RBC 0 /[address] Specimen Blood - Blood specimen (specimen) Performing Organization Address City/State/Zipcode Phone Number [address] [place] [address] BASIC METABOLIC PANEL (01/07/2021 6:41 AM CDT) Pathologist [facility] [place] nature Glucose 90 70 - 100 mg/dL [address] BUN 36 (H) 6 - 22 mg/dL [address] Creatinine 0.88 0.80 - 1.[address] mg/dL BUN/Creatinine Ratio 40.9 (H) 10.0 - 25.[address] Sodium 135 135 - 145 meq/L [address] Potassium 3.8 3.5 - 5.3 meq/L [address] Chloride 103 99 - 110 meq/L [address] CO2 24 20 - 29 meq/L [address] Anion Gap with K 12 6 - 20 meq/L [address] Calcium 8.5 8.5 - 10.[address] mg/dL Age [address] eGFR Non- 86 >=[address] [place] mL/min/1.73m2 eGFR >90 >=[address] mL/min/1.73m2 Specimen Blood - Blood specimen (specimen) Performing Organization Address City/State/Zipcode Phone Number [address] [place] [place] [address] LAB ONLY-COMPLETE BLOOD COUNT WITH DIFFERENTIAL (01/06/2021 6:19 AM CDT) [facility] nature WBC 16.7 (H) 4.0 - 11.0 K/uL [address] RBC 3.58 (L) 4.40 - 5.[address] M/uL Hemoglobin 10.9 (L) 13.5 - 17.[address] g/dL Hematocrit 31.3 (L) 40.0 - 50.0 % [address] MCV 87.4 80.0 - 98.[address] MCH 30.4 25.5 - 34.[address] MCHC 34.8 31.5 - 36.[address] g/dL RDW-CV 12.0 11.5 - 15.5 % [address] RDW-SD 38.7 35.5 - 50.[address] Platelet Count 181 140 - 400 K/uL [address] MPV 10.5 8.5 - 12.[address] Seg Neut Absolute 13.6 (H) 1.8 - 8.0 K/uL [address] Lymphocytes Absolute 1.2 0.8 - 4.1 K/uL [place] [address] [facility] Monocytes Absolute 1.8 (H) 0.0 - 1.0 K/uL [address] Eosinophils Absolute 0.0 0.0 - 0.7 K/uL [place] [address] [facility] Basophil Absolute 0.0 0.0 - 0.2 K/uL [address] Immature Granulocyte 0.12 (H) 0.00 - 0.[address] Absolute K/uL Neutrophils Abs. 13,600 /uL [address] (Segs and Bands) Neutrophils Percent 81.6 % [address] Lymphocytes Percent 7.1 % [address] Monocytes Percent 10.5 % [address] Immature Granulocyte 0.7 % [address] Percent Eosinophils Percent 0.0 % [address] Basophil Percent 0.1 % [address] Nucleated RBC 0 /[address] Specimen Blood - Blood specimen (specimen) Performing Organization Address [facility] Phone Number [address] [place] [address] BASIC METABOLIC PANEL (01/06/2021 6:19 AM CDT) [facility] Glucose 151 (H) 70 - 100 mg/dL [address] BUN 34 (H) 6 - 22 mg/dL [address] Creatinine 1.06 0.80 - 1.[address] mg/dL BUN/Creatinine Ratio 32.1 (H) 10.0 - 25.[address] Sodium 131 (L) 135 - 145 meq/L [address] Potassium 3.6 3.5 - 5.3 meq/L [address] Chloride 100 99 - 110 meq/L [address] CO2 22 20 - 29 meq/L [address] Anion Gap with K 13 6 - 20 meq/L [address] Calcium 8.3 (L) 8.5 - 10.[address] mg/dL Age [address] eGFR Non- 70 >=[address] [place] mL/min/1.73m2 eGFR 84 >=[address] mL/min/1.73m2 Specimen Blood - Blood specimen (specimen) Performing Organization Address [facility] Phone Number [address] [place] [address] XRAY C-ARM greater than one hour (01/05/2021 12:59 PM CDT) Specimen Narrative Performed At Fluoroscopic image(s) submitted. Imaging [facility] RADIOLOG[facility] assistance provided by Radiology. Performing Organization Address City/State/Zipcode Phone Number [facility] RADIOLOGY [address] [facility] [place] [address] CT SPINE CERVICAL WITHOUT CONTRAST (01/05/2021 10:28 AM CDT) Specimen Narrative Performed At [facility] Patient Name: IZAIAH YEUNG Date of : 1955 Procedure: CT SPINE CERVICAL WITHOUT CO NTRAST Date of Service: 01/05/2021 EXAM: CT SPINE CERVICAL WITHOUT CONTRAST INDICATION: trauma, GLF with neck pain TECHNIQUE: CT of the cervical spine perf ormed without IV contrast. COMPARISON(S): 01/19/2013 FINDINGS: There is a stable chronic anterior compression deformi ty of C7. No new compression deformities. Intervertebral disc space violeta rowing is seen most notably at C3-4 and C5-6. The craniocervical junc tion is maintained. The facets are appropriately aligned. Prev ertebral soft tissues are normal. There are multilevel facet arthrop athy changes. There are emphysematous changes of the l joseph apices. IMPRESSION: 1. No acute fracture or malalignment o f the cervical spine. 2. Stable chronic compression deformit y of C7. Finalized by: Rosendo Acosta MD on 2020 10:33 AM CDT Patient/Procedure Information: [facility] MRN/JORDYN: [id number] Order Number: [id number] Accession Number: [id number] Ordering Provider: DIANA NORTON Authorizing Provider: DIANA NORTON Procedure Note Interface, Radiantres - 01/05/2021 10:36 AM CDT Patient Name: IZAIAH YEUNG Date of : 1955 Procedure: CT SPINE CERVICAL WITHOUT CO NTRAST Date of Service: 01/05/2021 EXAM: CT SPINE CERVICAL WITHOUT CONTRAST INDICATION: trauma, GLF with neck pain TECHNIQUE: CT of the cervical spine perf ormed without IV contrast. COMPARISON(S): 01/19/2013 FINDINGS: There is a stable chronic anterior compr ession deformity of C7. No new compression deformities. Intervertebral disc space narrowing is seen most notably at C3-4 and C5-6. The craniocervical junction is maintained. The facets are appropriately aligned. Prever tebral soft tissues are normal. There are multilevel facet arthropathy changes. There are emphysematous changes of the lung apices. IMPRESSION: 1. No acute fracture or malalignment of the cervical spine. 2. Stable chronic compression deformity of C7. Finalized by: Rosendo Acosta MD on 2020 10:33 AM CDT Patient/Procedure Information: [facility] MRN/JORDYN: [id number] Order Number: [id number] Accession Number: [id number] Ordering Provider: DIANA NORTON Authorizing Provider: DIANA CANAS Performing Organization Address City/State/Zipcode Phone Number [id number] LAB ONLY-COMPLETE BLOOD COUNT WITH DIFFERENTIAL (01/05/2021 6:16 AM CDT) [facility] Sig nature WBC 13.2 (H) 4.0 - 11.0 K/uL [address] RBC 4.32 (L) 4.40 - 5.80 [place] [address] [facility] M/uL Hemoglobin 13.1 (L) 13.5 - 17.[address] g/dL Hematocrit 37.3 (L) 40.0 - 50.0 % [address] MCV 86.3 80.0 - 98.[address] MCH 30.3 25.5 - 34.[address] MCHC 35.1 31.5 - 36.[address] g/dL RDW-CV 12.1 11.5 - 15.5 % [address] RDW-SD 38.5 35.5 - 50.[address] Platelet Count 218 140 - 400 K/uL [address] MPV 10.2 8.5 - 12.[address] Seg Neut Absolute 9.4 (H) 1.8 - 8.0 K/uL [place] [address] [facility] Lymphocytes Absolute 2.3 0.8 - 4.1 K/uL [place] [address] [facility] C Monocytes Absolute 1.4 (H) 0.0 - 1.0 K/uL [place] [address] [facility] Eosinophils Absolute 0.0 0.0 - 0.7 K/uL [place] [address] [facility] C Basophil Absolute 0.0 0.0 - 0.2 K/uL [address] Immature Granulocyte 0.08 (H) 0.00 - 0.[address] Absolute K/uL Neutrophils Abs. 9,400 /uL [address] (Segs and Bands) Neutrophils Percent 71.1 % [address] Lymphocytes Percent 17.2 % [address] Monocytes Percent 10.6 % [address] Immature Granulocyte 0.6 % [address] Percent Eosinophils Percent 0.2 % [address] Basophil Percent 0.3 % [address] Nucleated RBC 0 /[address] Specimen Blood - Blood specimen (specimen) Performing Organization Address [facility] Phone Number [address] [place] [address] BASIC METABOLIC PANEL (01/05/2021 6:16 AM CDT) Pathologist Sig nature Glucose 120 (H) 70 - 100 mg/dL [address] BUN 28 (H) 6 - 22 mg/dL [address] Creatinine 1.09 0.80 - 1.[address] mg/dL BUN/Creatinine Ratio 25.7 (H) 10.0 - 25.[address] Sodium 130 (L) 135 - 145 meq/L [address] Potassium 3.9 3.5 - 5.3 meq/L [address] Chloride 99 99 - 110 meq/L [address] CO2 23 20 - 29 meq/L [address] Anion Gap with K 12 6 - 20 meq/L [address] Calcium 8.6 8.5 - 10.[address] mg/dL Age [address] eGFR Non- 67 >=[address] [place] mL/min/1.73m2 eGFR 82 >=[address] mL/min/1.73m2 Specimen Blood - Blood specimen (specimen) Performing Organization Address [facility] Phone Number [address] [place] [address] URINALYSIS MICROSCOPIC (01/05/2021 12:43 AM CDT) WBC Urine 0-5 /hpf Negative, 0-5 [place] [facility] /hpf CLINIC RBC Urine 3-5 /hpf (A) Negative, 0-2 [place] [facility] /hpf CLINIC Squamous Occ (0-10) /lpf Negative, Occ [place] [facility] Epithelial Cells (0-10) /lpf, Few CLINIC (11-20) /lpf Bacteria Negative Negative [address] Hyaline Cast 3-5 /lpf (A) 0-2 /lpf [place] [address] Specimen Urine - Urine specimen obtained by clean catch procedure (specimen) Performing Organization Address [facility] Phone Number [address] [place] [address] URINALYSIS DIPSTICK REFLEX TO MICROSCOPIC (01/05/2021 12:43 AM CDT) Color Urine Yellow Tanya, Dark [place] [address] Yellow, Straw, CLINIC Yellow, Colorless Clarity Urine Clear Clear [address] Glucose Urine Negative Negative [address] Bilirubin Urine Negative Negative [address] Ketones Urine Negative Negative, 5 [place] [address] mg/dL, 10 mg/dL CLINIC Specific [facility] 1.031 (H) 1.002 - 1.[address] Blood Urine Small (1+) (A) Negative [address] PH Urine 5.5 5.0, 5.5, 6.0, [place] [address] 6.5, 7.0, 7.5, CLINIC 8.0 Protein Urine 30 mg/dL (A) Negative [address] Urobilinogen < 2 mg/dL < 2 mg/dL [address] Nitrite Negative Negative [address] Leukocyte Esterase Negative Negative [place] [address] Urine CLINIC Specimen Urine - Urine specimen obtained by clean catch procedure (specimen) Performing Organization Address [facility] Phone Number [address] [place] [address], [place] [address] CT ABDOMEN PELVIS WITH CONTRAST (01/04/2021 11:28 PM CDT) Specimen Narrative Performed At [facility] Patient Name: IZAIAH YEUNG Date of : 1955 Procedure: CT ABDOMEN PELVIS WITH CONTR AST Date of Service: 01/04/2021 EXAM: CT ABDOMEN PELVIS WITH CONTRAST INDICATION:Fall. Pelvic ring injury. COMPARISON: Pelvic radiograph dated the same day. CT a bdomen dated 11/25/2019. TECHNIQUE: Consecutive CT images were acquired through the abdomen/pelvis. 83 mL of Omnipaque 350 was administere d intravenously without immediate complication. Oral contrast was no t administered. Multiplanar reformats are provided for review. LIMITATIONS: Limited evaluation of the visceral organs given lack of oral contrast. FINDINGS: Chest: Emphysematous changes. Basilar atelectasis favo red. Coronary artery/valvular calcifications. Liver: Parenchymal hypoattenuation. Gallbladder: Normal. Adrenal glands: Normal. Kidneys: Simple left renal cyst in addition to subcent imeter hypoattenuating indeterminate lesions bilaterally. No hydronephrosis/hydroureter. Vascular dann cifications along the dane. Spleen: Normal. Pancreas: Parenchymal atrophy. Bowel: Stomach distended with fluid and air. Remaining bowel primarily decompressed. Colonic diverticulosis. No rmal appendix. Urinary bladder: Distended.. Reproductive organs: Prostatomegaly. Lymph nodes: Normal. Vasculature: Severe calcified atheromatous plaques in the arterial vasculature, incompletely assessed. Bilateral common i liac arterial stents. Peritoneum/mesentery: Blood products in the prevesical space. Soft tissue/musculature: Intramuscular and soft tissue edema related to the pelvic fractures. Osseous structures: Right superior/inferior pubic ada s fractures with extension to the superior aspect of the pubic symphysi s. Mildly displaced left inferior pubic ramus fracture. A left s uperior pubis ramus fracture extends through the anterior acetabular articular surface. Remote rib fractures. Demineral ization. IMPRESSION: Bilateral obturator ring fractures with involvement of the left acetabulum ventrally with intra-articular extension. S tranding and blood products adjacent to the fracture sites with extension into the prevesical space. Orthopedic follow-up n ecessary. Severe hepatic steatosis. Colonic diverticulosis. Prostatomegaly which most often represents benign pros tatic hypertrophy. However, correlate with exam and markers to exclude malignancy. Findings discussed with JACEY BARRY on 01/04/2021 11:47 PM CDT Finalized by: Lui Hurst MD on 12/18 11:50 PM CDT Patient/Procedure Information: [facility] MRN/JORDYN: [id number] Order Number: [id number] Accession Number: [id number] Ordering Provider: JACEY BARRY Authorizing Provider: JACEY BARRY Procedure Note Demetrice Jones - 01/04/2021 11:52 PM CDT Patient Name: IZAIAH YEUNG Date of : 1955 Procedure: CT ABDOMEN PELVIS WITH CONTR AST Date of Service: 01/04/2021 EXAM: CT ABDOMEN PELVIS WITH CONTRAST INDICATION:Fall. Pelvic ring injury. COMPARISON: Pelvic radiograph dated the same day. CT abdomen dated 11/25/2019. TECHNIQUE: Consecutive CT images were ac quired through the abdomen/pelvis. 83 mL of Omnipaque 350 was administered intravenously without immediate complication. Oral contrast was not administered. Multiplanar reformats are provided for review. LIMITATIONS: Limited evaluation of the v isceral organs given lack of oral contrast. FINDINGS: Chest: Emphysematous changes. Basilar at electasis favored. Coronary artery/valvular calcifications. Liver: Parenchymal hypoattenuation. Gallbladder: Normal. Adrenal glands: Normal. Kidneys: Simple left renal cyst in addit ion to subcentimeter hypoattenuating indeterminate lesions bilaterally. No hydronephrosis/hydroureter. Vascular calcifications along the dane. Spleen: Normal. Pancreas: Parenchymal atrophy. Bowel: Stomach distended with fluid and air. Remaining bowel primarily decompressed. Colonic diverticulosis. Normal appendix. Urinary bladder: Distended.. Reproductive organs: Prostatomegaly. Lymph nodes: Normal. Vasculature: Severe calcified atheromato us plaques in the arterial vasculature, incompletely assessed. Bilateral common iliac arterial stents. Peritoneum/mesentery: Blood products in the prevesical space. Soft tissue/musculature: Intramuscular a nd soft tissue edema related to the pelvic fractures. Osseous structures: Right superior/infer ior pubic ramus fractures with extension to the superior aspect of the pubic symphysis. Mildly displaced left inferior pubic ramus fracture. A left superior pubis ramus fracture extends through the anterior acetabular articular surface. Remote rib fractures. Demineralization. IMPRESSION: Bilateral obturator ring fractures with involvement of the left acetabulum ventrally with intra-articular extension. Stranding and blood products adjacent to the fracture sites with extension into the prevesical space. Orthopedic follow-up necessary. Severe hepatic steatosis. Colonic diverticulosis. Prostatomegaly which most often represen ts benign prostatic hypertrophy. However, correlate with exam and markers to exclude malignancy. Findings discussed with JACEY BARRY on 01/04/2021 11:47 PM CDT Finalized by: Lui Hurst MD on 12/18 11:50 PM CDT Patient/Procedure Information: [facility] MRN/JORDYN: [id number] Order Number: [id number] Accession Number: [id number] Ordering Provider: JACEY BARRY Authorizing Provider: JACEY BARRY Performing Organization Address City/State/Zipcode Phone Number [facility] CT EXTREMITY UPPER WITHOUT CONTRAST LT (01/04/2021 11:27 PM CDT) Specimen Narrative Performed At [facility] Patient Name: IZAIAH YEUNG Date of : 1955 Procedure: CT EXTREMITY UPPER WITHOUT C ONTRAST LT Date of Service: 01/04/2021 EXAM: CT EXTREMITY UPPER WITHOUT CONTRAS T LT INDICATION:L elbow fracture, operative p cher COMPARISON: Radiograph dated the same da y. TECHNIQUE: Noncontrast CT of the left elbow performed according to standard protocol. Multiplanar reconstru ctions are provided for review. FINDINGS: Comminuted and displaced intra-articular fracture invo lving the ulnar/olecranon with multiple tiny butterfly fragments and loose intra-articular bodies. Large joint effusion. Subluxat ion of the radiocapitellar and ulnar trochlear articulations. Sig nificant soft tissue edema/hematoma along the dorsal e lbow and proximal forearm. IMPRESSION: Ulnar/olecranon fracture. Orthopedic follow-up necessa ry. Correlate for neurovascular injury. Findings discussed with JACEY BARRY on 01/04/2021 11:47 PM CDT Finalized by: Lui Hurst MD on 12/18 11:50 PM CDT Patient/Procedure Information: [facility] MRN/JORDYN: [id number] Order Number: [id number] Accession Number: [id number] Ordering Provider: JACEY BARRY Authorizing Provider: JACEY BARRY Procedure Note Interface, [facility] - 01/04/2021 11:52 PM CDT Patient Name: IZAIAH YEUNG Date of : 1955 Procedure: CT EXTREMITY UPPER WITHOUT C ONTRAST LT Date of Service: 01/04/2021 EXAM: CT EXTREMITY UPPER WITHOUT CONTRAS T LT INDICATION:L elbow fracture, operative p cher COMPARISON: Radiograph dated the same da y. TECHNIQUE: Noncontrast CT of the left el bow performed according to standard protocol. Multiplanar reconstructions are provided for review. FINDINGS: Comminuted and displaced intra-articular fracture involving the ulnar/olecranon with multiple tiny butterfly fragments and loose intra-articular bodies. Large joint effusion. Subluxation of the radiocapitellar and ulnar trochlear jared culations. Significant soft tissue edema/hematoma along the dorsal elbow and proximal forearm. IMPRESSION: Ulnar/olecranon fracture. Orthopedic fol low-up necessary. Correlate for neurovascular injury. Findings discussed with JACEY BARRY on 01/04/2021 11:47 PM CDT Finalized by: Lui Hurst MD on 12/18 11:50 PM CDT Patient/Procedure Information: [facility] MRN/JORDYN: [id number] Order Number: [id number] Accession Number: [id number] Ordering Provider: JACEY BARRY Authorizing Provider: JACEY BARRY Performing Organization Address [facility] Phone Number [id number] LAB ONLY-ABORH (01/04/2021 10:26 PM CDT) Pathologist Sig nature ABO Type B [address] BLOOD BA NK Rh Type Negative [address] BLOOD BA NK Specimen Blood - Blood specimen (specimen) Performing Organization Address [facility] Phone Number [address] BLOOD BANK [address], [place] [address] LAB ONLY-COMPLETE BLOOD COUNT WITH DIFFERENTIAL (01/04/2021 10:23 PM CDT) Pathologist Sig nature WBC 20.4 (H) 4.0 - 11.0 K/uL [address] RBC 4.55 4.40 - 5.[address] M/uL Hemoglobin 13.9 13.5 - 17.[address] g/dL Hematocrit 39.3 (L) 40.0 - 50.0 % [address] MCV 86.4 80.0 - 98.[address] MCH 30.5 25.5 - 34.[address] MCHC 35.4 31.5 - 36.[address] g/dL RDW-CV 12.1 11.5 - 15.5 % [address] RDW-SD 38.5 35.5 - 50.[address] Platelet Count 223 140 - 400 K/uL [address] MPV 10.2 8.5 - 12.[address] Seg Neut Absolute 16.3 (H) 1.8 - 8.0 K/uL [address] Lymphocytes Absolute 2.6 0.8 - 4.1 K/uL [place] [address] [facility] Monocytes Absolute 1.2 (H) 0.0 - 1.0 K/uL [address] Eosinophils Absolute 0.1 0.0 - 0.7 K/uL [place] [address] [facility] Basophil Absolute 0.1 0.0 - 0.2 K/uL [address] Immature Granulocyte 0.23 (H) 0.00 - 0.[address] Absolute K/uL Neutrophils Abs. 16,300 /uL [address] (Segs and Bands) Neutrophils Percent 79.8 % [address] Lymphocytes Percent 12.6 % [address] Monocytes Percent 5.8 % [address] Immature Granulocyte 1.1 % [address] Percent Eosinophils Percent 0.4 % [address] Basophil Percent 0.3 % [address] Nucleated RBC 0 /[address] Specimen Blood - Blood specimen (specimen) Performing Organization Address City/[facility]/Zipcode Phone Number [address] [place] [place] [address] LACTIC ACID (01/04/2021 10:23 PM CDT) Pathologist [facility] [place] nature Lactic Acid 2.6 (H) 0.5 - 2.2 mmol/L [address] Specimen Blood - Blood specimen (specimen) Performing Organization Address City/[facility] Phone Number [address] [place] [address], [place] [address] PROTIME/INR (01/04/2021 10:23 PM CDT) Pathologist Sig nature Protime 13.1 12.0 - 14.[address] INR 1.0 (L) 2.0 - 3.[address] Specimen Blood - Blood specimen (specimen) Narrative Performed At Normal INR reference range (patients not on oral antic oagulants) [address] 0.9-1.1. INR Standard Intensity = (2.0 - 3.0) INR Higher Intensity = (2.5 - 3.5) Performing Organization Address [facility] Phone Number [address] [place] [phone] TYPE AND SCREEN (01/04/2021 10:23 PM CDT) Pathologist Sig nature ABO Type B [address] BLOOD BANK Rh Type Negative [address] BLOOD BANK Antibody Screen Negative [address] Comment: BLOOD BANK Allogenic Red Cells Available ER35 01/04/21 Expiration Date 01/07/2021 23:[address] BLOOD BANK Specimen Blood - Blood specimen (specimen) Performing Organization Address [facility] Phone Number [address] BLOOD BANK [address] [place] [phone] COMPREHENSIVE METABOLIC PANEL (01/04/2021 10:23 PM CDT) Pathologist Sig nature Glucose 89 70 - 100 mg/dL [address] BUN 23 (H) 6 - 22 mg/dL [address] Creatinine 1.09 0.80 - 1.[address] mg/dL BUN/Creatinine Ratio 21.1 10.0 - 25.[address] Sodium 132 (L) 135 - 145 meq/L [address] Potassium 3.6 3.5 - 5.3 meq/L [address] Chloride 99 99 - 110 meq/L [address] CO2 20 20 - 29 meq/L [address] Anion Gap with K 17 6 - 20 meq/L [address] Calcium 8.6 8.5 - 10.[address] mg/dL Protein Total 6.5 6.0 - 8.2 g/dL [address] Albumin 3.4 (L) 3.5 - 5.0 g/dL [address] Alkaline Phosphatase 66 30 - 150 U/L [address] AST - SGOT 23 0 - 35 U/L [address] ALT - SGPT 38 0 - 55 U/L [address] Bilirubin Total 0.4 0.2 - 1.2 mg/dL [address] Corrected Calcium 9.1 8.5 - 10.[address] mg/dL Age [address] eGFR Non- 65 >=[address] Montenegrin mL/min/1.73m2 eGFR 80 >=[address] mL/min/1.73m2 Specimen Blood - Blood specimen (specimen) Performing Organization Address City/State/Zipcode Phone Number [address] [place] [address], [place] [address] XRAY ELBOW MIN 3 VIEWS LT (01/04/2021 9:40 PM CDT) Specimen Narrative Performed At [facility] Patient Name: IZAIAH YEUNG Date of : 1955 Procedure: XRAY ELBOW MIN 3 VIEWS LT Date of Service: 01/04/2021 EXAM: XRAY ELBOW MIN 3 VIEWS LT, XRAY HU MERUS MIN 2 VIEWS LT INDICATION:Fall. Pain. COMPARISON: None. FINDINGS: Demineralization. Comminuted and significantly displac ed fracture of the olecranon with intra-articular extension and tiny butt erfly fragments and loose intra-articular fragments. Large joint effus ion. Remaining osseous structures intact. Severe glenohumeral osteoar thritis. Potential loose intra-articular bodies in the axil marcia fossa. IMPRESSION: Significantly displaced intra-articular fracture invol ving the olecranon with joint effusion and loose intra-articular bodies. Orthopedic follow-up necessary. Finalized by: Lui Hurst MD on 12/18 9:48 PM CDT Patient/Procedure Information: [facility] MRN/JORDYN: [id number] Order Number: [id number] Accession Number: [id number] Ordering Provider: JACEY BARRY Authorizing Provider: JACEY BARRY Procedure Note Interface, [facility]iant[facility] - 01/04/2021 9:50 PM CDT Patient Name: IZAIAH YEUNG Date of : 1955 Procedure: XRAY ELBOW MIN 3 VIEWS LT Date of Service: 01/04/2021 EXAM: XRAY ELBOW MIN 3 VIEWS LT, XRAY HU MERUS MIN 2 VIEWS LT INDICATION:Fall. Pain. COMPARISON: None. FINDINGS: Demineralization. Comminuted and signifi cantly displaced fracture of the olecranon with intra-articular extension and tiny butterfly fragments and loose intra-articular fragments. Large joint effusion. Remaining osseous structures intact. Severe glenohumeral o steoarthritis. Potential loose intra- articular bodies in the axillary fossa. IMPRESSION: Significantly displaced intra-articular fracture involving the olecranon with joint effusion and loose intra-articular bodies. Orthopedic follow-up necessary. Finalized by: Lui Hurst MD on 12/18 9:48 PM CDT Patient/Procedure Information: [facility] MRN/JORDYN: [id number] Order Number: [id number] Accession Number: [id number] Ordering Provider: JACEY BARRY Authorizing Provider: JACEY BARRY Performing Organization Address City/State/Zipcode Phone Number [id number] XRAY HUMERUS MIN 2 VIEWS LT (01/04/2021 9:40 PM CDT) Specimen Narrative Performed At [facility] Patient Name: IZAIAH YEUNG Date of : 1955 Procedure: XRAY HUMERUS MIN 2 VIEWS LT Date of Service: 01/04/2021 EXAM: XRAY ELBOW MIN 3 VIEWS LT, XRAY HU MERUS MIN 2 VIEWS LT INDICATION:Fall. Pain. COMPARISON: None. FINDINGS: Demineralization. Comminuted and significantly displac ed fracture of the olecranon with intra-articular extension and tiny butt erfly fragments and loose intra-articular fragments. Large joint effus ion. Remaining osseous structures intact. Severe glenohumeral osteoar thritis. Potential loose intra-articular bodies in the axil marcia fossa. IMPRESSION: Significantly displaced intra-articular fracture invol ving the olecranon with joint effusion and loose intra-articular bodies. Orthopedic follow-up necessary. Finalized by: Lui Hurst MD on 12/18 9:48 PM CDT Patient/Procedure Information: [facility] MRN/JORDYN: [id number] Order Number: [id number] Accession Number: [id number] Ordering Provider: JACEY BARRY Authorizing Provider: JACEY BARRY Procedure Note Interface, [facility] - 01/04/2021 9:50 PM CDT Patient Name: IZAIAH YEUNG Date of : 1955 Procedure: XRAY HUMERUS MIN 2 VIEWS LT Date of Service: 01/04/2021 EXAM: XRAY ELBOW MIN 3 VIEWS LT, XRAY HU MERUS MIN 2 VIEWS LT INDICATION:Fall. Pain. COMPARISON: None. FINDINGS: Demineralization. Comminuted and signifi cantly displaced fracture of the olecranon with intra-articular extension and tiny butterfly fragments and loose intra-articular fragments. Large joint effusion. Remaining osseous structures intact. Severe glenohumeral o steoarthritis. Potential loose intra- articular bodies in the axillary fossa. IMPRESSION: Significantly displaced intra-articular fracture involving the olecranon with joint effusion and loose intra-articular bodies. Orthopedic follow-up necessary. Finalized by: Lui Hurst MD on 12/18 9:48 PM CDT Patient/Procedure Information: [facility] MRN/JORDYN: [id number] Order Number: [id number] Accession Number: [id number] Ordering Provider: JACEY BARRY Authorizing Provider: JACEY BARRY Performing Organization Address City/State/Zipcode Phone Number [id number] XRAY PELVIS WITH HIP 1 VIEW SHERYL (01/04/2021 9:39 PM CDT) Specimen Narrative Performed At [facility] Patient Name: IZAIAH YEUNG Date of : 1955 Procedure: XRAY PELVIS WITH HIP 1 VIEW SHERYL Date of Service: 01/04/2021 EXAM: XRAY PELVIS WITH HIP 1 VIEW SHERYL INDICATION:fall, b/l hip/groin pain COMPARISON: None. FINDINGS: Demineralization. Mild narrowing of the femoral acetab ular joint spaces with sclerosis and osteophyte formation along the acet abula, left greater than right. Mildly displaced fractures of the right superior/inferior pubic rami which extend through the superior aspect of the pubic symphysis. Nondisplaced fracture of the left inferior pubic ramus which appears more chronic in nature. Remaining pelvis appears intact. Bilateral iliac vascular stents. Severe arteri al vascular calcifications. Surgical clips in the right inguinal r egion. Scattered enthesopathy. Dystrophic mineral deposition in the abril pose overlying the right greater trochanter. IMPRESSION: Right superior/inferior pubic ramus fractures extendin g through the pubic symphysis with questionable left inferior pubic ramus fracture demonstrating more chronic features. CT would further delineate these findings. Orthopedic follow-up recommend ed. Finalized by: Lui Hurst MD on 12/18 9:46 PM CDT Patient/Procedure Information: [facility] MRN/JORDYN: [id number] Order Number: [id number] Accession Number: [id number] Ordering Provider: JACEY BARRY Authorizing Provider: JACEY BARRY Procedure Note Interface, [facility] - 01/04/2021 9:48 PM CDT Patient Name: IZAIAH YEUNG Date of : 1955 Procedure: XRAY PELVIS WITH HIP 1 VIEW SHERYL Date of Service: 01/04/2021 EXAM: XRAY PELVIS WITH HIP 1 VIEW SHERYL INDICATION:fall, b/l hip/groin pain COMPARISON: None. FINDINGS: Demineralization. Mild narrowing of the femoral acetabular joint spaces with sclerosis and osteophyte formation along the acetabula, left greater than right. Mildly displaced fractures of the right superior/inferior pubic rami which extend through the supe rior aspect of the pubic symphysis. Nondisplaced fracture of the left inferior pubic ramus which appears more chronic in nature. Remaining pelvis appears intact. Bilateral iliac vascular stents. Severe arterial v ascular calcifications. Surgical clips in the right inguinal region. Scattered enthesopathy. Dystrophic mineral deposition in the adipose overlying the right greater trochanter. IMPRESSION: Right superior/inferior pubic ramus frac tures extending through the pubic symphysis with questionable left inferior pubic ramus fracture demonstrating more chronic features. CT would further delineate these findings. Orthopedic follow-up recommended. Finalized by: Lui Hurst MD on 12/18 9:46 PM CDT Patient/Procedure Information: [facility] MRN/JORDYN: [id number] Order Number: [id number] Accession Number: [id number] Ordering Provider: JACEY BARRY Authorizing Provider: JACEY BARRY Performing Organization Address City/State/Zipcode Phone Number [id number] documented in this encounter Visit Diagnoses Diagnosis Closed olecranon fracture, left, initial encounter - Primary Closed pelvic ring fracture, initial enc ounter ([facility]) Closed nondisplaced fracture of left lili tabulum, unspecified portion of acetabulum, initial encounter ([facility]) Bilateral shoulder region arthritis Right foot pain Pain in limb Chronic obstructive pulmonary disease, u nspecified COPD type ([facility]) Leg cramping Essential hypertension Unspecified essential hypertension Pure hypercholesterolemia Benign prostatic hyperplasia with urinar y obstruction Pain of left lower extremity Vitamin D deficiency Unspecified vitamin D deficiency Trauma Injury, other and unspecified, unspecifi ed site documented in this encounter Discharge Diagnoses Not on filedocumented in this encounter Administered Medications Medication Order MAR Action Action Date Dose Rate Site acetaminophen (TYLENOL) tablet Given 01/10/2021 9:02 AM CDT 1,0 00 mg 1,000 mg 1,000 mg, Oral, Three times a day, First dose on Fri01/05/21 at 1600, Until Discontinued, Adult patients: Total dose of acetaminophen from all acetaminophen containing products should not exceed 4 grams (4000 mg) per day. Pediatric Patients 0 - 3 months: Maximum of 60 mg/kg/24 hours of acetaminophen. Pediatric Patients older than 3 months: Maximum of 75 mg/kg/24 hours of acetaminophen (Never exceeding 4 grams/day). , Given 01/09/2021 8:47 PM CDT 1,000 mg Given 01/09/2021 2:54 PM CDT 1,000 mg acetaminophen (TYLENOL) tablet 650 mg 650 mg, Oral, Every four hours prn, Starting Traci at 2334, Until Discontinued, mild pain, Use FIRST for mild pain. If i nadequate response in 60 minutes, may proceed to next choice option or if no ot her options, contact provider. Adult patients: Total dose of acetaminophen from all acetaminophen containing products should not exceed 4 grams (4000 mg) per day. Pediatric Patients 0 - 3 months: Maximum of 60 mg/kg/24 ho urs of acetaminophen. Pediatric Patients older than 3 months: Maximum of 75 mg/kg/24 hours of acetaminophen (Never exceeding 4 grams/day)., albuterol-ipratropium (DUO-NEB) 2.5-0.5 mg/3 mL inhalation solution 3 mL 3 mL, Nebulization, Four times a day prn, Starting Fri01/05/21 at 1515, Until Discontinued, bronchospasm, 3 mL atenolol (TENORMIN) tablet 50 mg Given 01/10/2021 9:03 AM CDT 50 mg 50 mg, Oral, DAILY, First dose on Fri01/05/21 at 0900, Until Discontinued, Hold for SBP less than 100 Hold for HR less than 60, Given 01/09/2021 8:57 AM CDT 50 mg Given 01/08/2021 7:45 AM CDT 50 mg celecoxib (celeBREX) capsule 200 mg Given 01/10/2021 9:03 AM CDT 200 mg 200 mg, Oral, One time a day with breakfast, First dose on Fri01/05/21 at 0800, Until Discontinued Given 01/09/2021 8:57 AM CDT 200 mg Given 01/08/2021 7:45 AM CDT 200 mg cyclobenzaprine (FLEXERIL) tablet 10 mg Given 01/05/2021 12:39 AM CDT 10 mg 10 mg, Oral, Bedtime prn, Starting Traci 01/04/21 at 2341, Until Discontinued, muscle spasm enoxaparin (LOVENOX) subcutaneous injection Given 01/09/2021 8:46 PM CDT 40 mg solution 40 mg 40 mg, Subcutaneous, Bedtime, First dose on Fri01/05/21 at 2100, Until Discontinued, To avoid the loss of drug when using the 30 mg and 40 mg prefilled syringes, do not expel the air bubble from the syringe before the injection. For ADULT patients: Administration should be alternated between the left and right anterolateral and left and right posterolateral abdominal wall. The whole length of the needle should be introduced into a skin fold held between the thumb and forefinger; the skin fold should be held throughout the injection. To minimize bruising, do not rub the injection site after completion of the injection. For PEDIATRIC patients: Administration should be alternated between appropriate sites for patient age/weight (infants/small children = upper thigh; older children/adolescents = left and right anterolateral and left and right posterolateral abdominal wall). During administration to infants/smaller children sometimes the whole length of the needle is not "introduced" during the injection. Administer injection into a skin fold held between the thumb and forefinger; the skin fold should be held throughout the injection. To minimize bruising, do not rub the injection site after completion of the injection., Given 01/08/2021 9:13 PM CDT 40 mg Given 01/07/2021 8:09 PM CDT 40 mg finasteride (PROSCAR) tablet 5 mg Given 01/10/2021 9:03 AM CDT 5 mg 5 mg, Oral, DAILY, First dose on Fri01/05/21 at 0900, Until Discontinued, This medication is a low risk hazardous drug. Wear 2 pairs of chemo gloves for administration. If administering oral liquid or sublingual, also wear a chemo gown and face shield if there is a possibility of splashing. If unable to administer dose intact - contact pharmacy or reference policy for other administration options. Dispose of empty packages in the yellow hazardous container. Dispose of unused or partial packages in the black waste containers., Given 01/09/2021 8:57 AM CDT 5 mg Given 01/08/2021 7:45 AM CDT 5 mg fluticasone-vilanterol (BREO ELLIPTA) 100-25 Given 9:34 AM CDT 1 puff mcg/puff inhaler 1 puff 1 puff, Inhalation, Daily, First dose on Fri01/06/21 at 0900, Until Discontinued, Rinse mouth after use. Formulary Substitute for Advair, Given 01/09/2021 9:54 AM CDT 1 puff Given 01/08/2021 8:29 AM CDT 1 puff gabapentin (NEURONTIN) capsule 300 mg Given 01/10/2021 9:03 AM CDT 300 mg 300 mg, Oral, Two times a day, First dose on Fri01/05/21 at 0900, Until Discontinued Given 01/09/2021 8:47 PM CDT 300 mg Given 01/09/2021 8:57 AM CDT 300 mg HYDROmorphone (DILAUDID) injection solution Given 12/19 9:35 AM CDT 0.5 mg (conc: 1 mg/mL) 0.5 mg 0.5 mg, IV, Every two hours prn, Starting Traci 01/04/21 at 2334, Until Discontinued, severe pain, breakthrough pain, 0.5 mL, Use SECOND, Given 01/05/2021 9:09 AM CDT 0.5 mg Given 01/05/2021 2:06 AM CDT 0.5 mg nicotine polacrilex (COMMIT) lozenge 2 m g 2 mg (1 lozenge), Mouth/Throat, Every on e hour prn, Starting Fri01/05/21 at 1030, Until Discontinued, smoking cessation, t obacco cravings, Should not be crushed or chewed, oxyCODONE (OXY-IR) tablet 5-10 mg Given 01/10/2021 11:31 AM CDT 10 mg 5-10 mg, Oral, Every four hours prn, Starting Traci 01/04/21 at 2334, Until Discontinued, moderate pain, severe pain, 5 mg for moderate pain, 10 mg for severe pain Given 01/10/2021 7:05 AM CDT 10 mg Given 01/09/2021 8:48 PM CDT 5 mg polyethylene glycol (MIRALAX) packet 1 Given 01/09/2021 8:57 AM CDT 1 packet packet 1 packet, Oral, Daily, First dose on Fri01/06/21 at 0900, Until Discontinued, Post - Op, Hold if 2 loose stools occur in the last 24 hours. Do NOT give if patient on thickened liquids. Contact provider for alternative if needed., Given 01/06/2021 9:32 AM CDT 1 packet rosuvastatin (CRESTOR) tablet 10 mg Given 01/09/2021 8:46 PM CDT 10 mg 10 mg, Oral, Bedtime, First dose on Fri01/05/21 at 2100, Until Discontinued Given 01/08/2021 9:15 PM CDT 10 mg Given 01/07/2021 8:08 PM CDT 10 mg senna-docusate sodium Given 01/06/2021 9:36 PM CDT 1 tablet (SENOKOT-S;PERICOLACE) tablet 1 tablet 1 tablet, Oral, Bedtime, First dose on Fri01/05/21 at 2100, Until Discontinued, Post - Op, Hold if 2 loose stools occur in the last 24 hours., Given 01/05/2021 8:41 PM CDT 1 tablet senna-docusate sodium Given 01/09/2021 8:57 AM CDT 2 tablets (SENOKOT-S;PERICOLACE) tablet 2 tablet 2 tablet, Oral, Daily, First dose on Fri01/05/21 at 0900, Until Discontinued Given 01/06/2021 9:30 AM CDT 2 tablets sodium chloride 0.9% flush (adult) 10 mL Given 01/10/2021 9:03 AM CDT 10 mL 10 mL, IV, Two times a day and prn, First dose on Fri01/05/21 at 0900, Until Discontinued, 10 mL, Flush IV line as scheduled and as often as necessary before and after meds., Given 01/09/2021 8:48 PM CDT 10 mL Given 01/09/2021 8:59 AM CDT 10 mL tamsulosin (FLOMAX) capsule 0.4 mg Given 01/09/2021 8:47 PM CDT 0.4 mg 0.4 mg, Oral, Bedtime, First dose on Fri01/05/21 at 2100, Until Discontinued, Swallow cap whole. Do not crush, chew or open., Given 01/08/2021 9:14 PM CDT 0.4 mg Given 01/07/2021 8:08 PM CDT 0.4 mg Medication Order MAR Action Action Date Dose Rate Site albuterol (PROVENTIL) (2.5 Given 01/05/2021 1:30 PM CDT 2.5 mg mg/3mL) 0.083% inhalation soln 2.5 mg 2.5 mg, Nebulization, One time prn, Starting Fri01/05/21 at 1321, Until Fri01/05/21 at 1444, shortness of breath, wheezing, 3 mL, PACU, Standard Neb and PPE Guidelines, ceFAZolin (ANCEF) 2000 mg/20 mL sterile Given 01/06/2021 12:59 P M CDT 2,000 mg water IV syringe 2,000 mg, IV, Every eight hours, 3 doses, First dose on Fri01/05/21 at 2000, Last dose on Fri01/06/21 at 1200, 20 mL, PACU - Continue Post-Op, Administer as IV push over 4 minutes., Given 01/06/2021 4:32 AM CDT 2,000 mg Given 01/05/2021 8:42 PM CDT 2,000 mg fentaNYL 100 mcg/2 mL preservative free Given 01/05/2021 2:00 P M CDT 50 mcg injection solution 50 mcg 50 mcg, IV, Every five minutes prn, 4 doses, Starting Fri01/05/21 at 1321, Until Fri01/05/21 at 1444, other (Specify), moderate pain scale 4-6 or severe pain above 7 if hydromorphone not ordered (max dose of 300 mcg), 1 mL, PACU, Use only anesthesia's orders for moderate or severe pain while in PACU or recovery care, HYDROmorphone (DILAUDID) injection solution Given 12/18 9:54 PM CDT 0.5 mg (conc: 1 mg/mL) 0.5 mg 0.5 mg, IV, Now, 1 dose, Traci 01/04/21 at 2155, 0.5 mL HYDROmorphone (DILAUDID) injection solution Given 12/18 11:38 PM CDT 0.5 mg (conc: 1 mg/mL) 0.5 mg 0.5 mg, IV, Now, 1 dose, Traci 01/04/21 at 2335, 0.5 mL iohexol (OMNIPAQUE) 350 mg/mL solution 1 00 mL Given 01/04/2021 11:28 PM CDT 83 mL 100 mL, IV, Now imaging, 1 dose, Starting Traci 01/04/21 at 2328, Until Traci 01/04/21 at 2328, 100 mL lactated ringers IV solution Already Infusing 01/05/2021 1:18 PM CDT 125 mL/hr IV, at 125 mL/hr, Continuous, Starting Fri01/05/21 at 1350, Until Fri01/05/21 at 1444, 1,000 mL, PACU, TKO current fluids if patient is going to Day Unit / ARU and tolerating PO fluids without nausea., documented in this encounter
[2021-01-12] MEDS: Albuterol/Ipratropium 3.0-0.5 MG/3 ML Neb Soln NEB SCH ×2 (07:57→19:26)
[2021-01-12] MEDS: Celecoxib 100 MG Cap PO SCH (07:57)
[2021-01-12] MEDS: Cholecalciferol (Vitamin D3) 25 MCG Tab PO SCH (07:57)
[2021-01-12] MEDS: Cyclobenzaprine 10 MG Tab PO SCH ×2 (07:58→14:21)
[2021-01-12] MEDS: Hydrochlorothiazide 25 MG Tab PO SCH (07:58)
[2021-01-12] MEDS: Finasteride 5 MG Tab PO SCH (07:58)
[2021-01-12] MEDS: Gabapentin 300 MG Cap PO SCH (07:58)
[2021-01-12] MEDS: Atenolol 50 MG Tab PO SCH (07:59)
[2021-01-12] MEDS: Polyethylene Glycol 3350 Powder 17 GM Packet PO SCH (07:59)
[2021-01-12] MEDS: Lisinopril 20 MG Tab PO SCH (07:59)
[2021-01-12] MEDS: Acetaminophen 500 MG Tab PO SCH ×3 (07:59→19:25)
[2021-01-12] MEDS: Saliva Substitute Oral Spray 120 ML Bottle MUCMEM PRN ×2 (10:30→12:00)
[2021-01-12] MEDS: Rosuvastatin 10 MG Tab PO SCH (19:25)
[2021-01-12] MEDS: Tamsulosin 0.4 MG Cap.ER PO SCH (19:25)
[2021-01-13] MEDS: Acetaminophen 500 MG Tab PO SCH ×3 (07:49→19:07)
[2021-01-13] MEDS: Albuterol/Ipratropium 3.0-0.5 MG/3 ML Neb Soln NEB SCH ×2 (07:49→19:07)
[2021-01-13] MEDS: Gabapentin 300 MG Cap PO SCH (07:49)
[2021-01-13] MEDS: Lisinopril 20 MG Tab PO SCH (07:50)
[2021-01-13] MEDS: Cholecalciferol (Vitamin D3) 25 MCG Tab PO SCH (07:50)
[2021-01-13] MEDS: Atenolol 50 MG Tab PO SCH (07:50)
[2021-01-13] MEDS: Celecoxib 100 MG Cap PO SCH (07:50)
[2021-01-13] MEDS: Polyethylene Glycol 3350 Powder 17 GM Packet PO SCH (07:51)
[2021-01-13] MEDS: Finasteride 5 MG Tab PO SCH (07:51)
[2021-01-13] MEDS: Hydrochlorothiazide 25 MG Tab PO SCH (07:51)
[2021-01-13] MEDS ORDERED: Loperamide 2 MG Tab PO PRN ×2 (08:24→08:28)
[2021-01-13] MEDS: Cyclobenzaprine 10 MG Tab PO PRN (09:39)
[2021-01-13] MEDS: Tamsulosin 0.4 MG Cap.ER PO SCH (19:07)
[2021-01-13] MEDS: Rosuvastatin 10 MG Tab PO SCH (19:07)
[2021-01-14] MEDS: Cyclobenzaprine 10 MG Tab PO PRN ×2 (03:54→10:11)
[2021-01-14] MEDS: oxyCODONE 5 MG Tab PO PRN ×2 (07:57→22:18)
[2021-01-14] MEDS: Lisinopril 20 MG Tab PO SCH (07:57)
[2021-01-14] MEDS: Albuterol/Ipratropium 3.0-0.5 MG/3 ML Neb Soln NEB SCH ×2 (07:57→19:12)
[2021-01-14] MEDS: Gabapentin 300 MG Cap PO SCH (07:59)
[2021-01-14] MEDS: Atenolol 50 MG Tab PO SCH (07:59)
[2021-01-14] MEDS: Cholecalciferol (Vitamin D3) 25 MCG Tab PO SCH (07:59)
[2021-01-14] MEDS: Acetaminophen 500 MG Tab PO SCH ×3 (08:00→19:11)
[2021-01-14] MEDS: Celecoxib 100 MG Cap PO SCH (08:00)
[2021-01-14] MEDS: Finasteride 5 MG Tab PO SCH (08:00)
[2021-01-14] MEDS: Hydrochlorothiazide 25 MG Tab PO SCH (08:00)
[2021-01-14] MEDS: Polyethylene Glycol 3350 Powder 17 GM Packet PO SCH (08:01)
[2021-01-14 08:14] LABS: CHLORIDE,CL 99 mmol/L (98-107); SODIUM,NA 132 mmol/L (136-145)
[2021-01-14] MEDS: Tamsulosin 0.4 MG Cap.ER PO SCH (19:11)
[2021-01-14] MEDS: Rosuvastatin 10 MG Tab PO SCH (19:11)
[2021-01-14] MEDS: Temazepam 15 MG Cap PO PRN (22:18)
[2021-01-15] MEDS: oxyCODONE 5 MG Tab PO PRN ×2 (04:24→23:44)
[2021-01-15] MEDS: Cyclobenzaprine 10 MG Tab PO PRN ×2 (04:25→17:18)
[2021-01-15] MEDS: Cholecalciferol (Vitamin D3) 25 MCG Tab PO SCH (07:57)
[2021-01-15] MEDS: Celecoxib 100 MG Cap PO SCH (07:58)
[2021-01-15] MEDS: Hydrochlorothiazide 25 MG Tab PO SCH (07:58)
[2021-01-15] MEDS: Finasteride 5 MG Tab PO SCH (07:58)
[2021-01-15] MEDS: Atenolol 50 MG Tab PO SCH (07:59)
[2021-01-15] MEDS: Lisinopril 20 MG Tab PO SCH (07:59)
[2021-01-15] MEDS: Gabapentin 300 MG Cap PO SCH (07:59)
[2021-01-15] MEDS: Acetaminophen 500 MG Tab PO SCH ×3 (08:00→19:42)
[2021-01-15] MEDS: Albuterol/Ipratropium 3.0-0.5 MG/3 ML Neb Soln NEB SCH ×2 (08:01→19:44)
[2021-01-15] MEDS: Polyethylene Glycol 3350 Powder 17 GM Packet PO SCH (08:01)
--- NOTE | 2021-01-15 09:54 | PCM.SN.2 ---
- Free Text/Narrative Note: Patient has had a nonproductive cough during the last couple of days with blood work ordered yesterday by [facility] physician and reviewed by me this morning. [facility] physician did order chest x-ray for this morning. Chest x-ray, portable, on 01/15/2021 does show some moderate COPD with mild centralized CHF, including Ronald B lines, however no pneumothorax, pulmonary infiltrates, or significant cardiomegaly. Mild prominence of the proximal aortic arch with minimal aortic valve calcification. Oral Lasix and oral potassium chloride has been ordered with repeat blood work scheduled for 01/17. In addition, note that the patient's oxycodone is scheduled to be stopped today. His current Celebrex has been suboptimal with this to be changed to ibuprofen on a as needed basis. Continue PT/OT, etc.. Vital signs are stable patient afebrile at this time.
[2021-01-15] MEDS ORDERED: Furosemide 20 MG Tab PO SCH (10:00)
[2021-01-15] MEDS ORDERED: Potassium Chloride 20 MEQ Tab.ER PO SCH (10:00)
[2021-01-15] MEDS: Potassium Chloride 20 MEQ Tab.ER PO SCH (13:48)
[2021-01-15] MEDS: Furosemide 20 MG Tab PO SCH (13:48)
[2021-01-15] MEDS: Tamsulosin 0.4 MG Cap.ER PO SCH (19:42)
[2021-01-15] MEDS: Rosuvastatin 10 MG Tab PO SCH (19:42)
[2021-01-15] MEDS: Temazepam 15 MG Cap PO PRN (21:59)
[2021-01-16] MEDS: Atenolol 50 MG Tab PO SCH (08:00)
[2021-01-16] MEDS: Albuterol/Ipratropium 3.0-0.5 MG/3 ML Neb Soln NEB SCH ×2 (08:00→19:03)
[2021-01-16] MEDS: Gabapentin 300 MG Cap PO SCH (08:01)
[2021-01-16] MEDS: Finasteride 5 MG Tab PO SCH (08:01)
[2021-01-16] MEDS: Furosemide 20 MG Tab PO SCH (08:01)
[2021-01-16] MEDS: Hydrochlorothiazide 25 MG Tab PO SCH (08:01)
[2021-01-16] MEDS: Cholecalciferol (Vitamin D3) 25 MCG Tab PO SCH (08:01)
[2021-01-16] MEDS: Lisinopril 20 MG Tab PO SCH (08:02)
[2021-01-16] MEDS: Potassium Chloride 20 MEQ Tab.ER PO SCH (08:04)
[2021-01-16] MEDS: Acetaminophen 500 MG Tab PO SCH ×3 (08:05→19:02)
[2021-01-16] MEDS: Polyethylene Glycol 3350 Powder 17 GM Packet PO SCH (08:17)
[2021-01-16] MEDS: Ibuprofen 600 MG Tab PO PRN ×2 (11:14→20:55)
[2021-01-16] MEDS: Tamsulosin 0.4 MG Cap.ER PO SCH (19:02)
[2021-01-16] MEDS: Rosuvastatin 10 MG Tab PO SCH (19:02)
[2021-01-16] MEDS: Temazepam 15 MG Cap PO PRN (20:55)
[2021-01-16] MEDS: Cyclobenzaprine 10 MG Tab PO PRN (20:55)
[2021-01-17] MEDS: Ibuprofen 600 MG Tab PO PRN (03:44)
[2021-01-17] MEDS: Cyclobenzaprine 10 MG Tab PO PRN (03:44)
[2021-01-17] MEDS: Albuterol/Ipratropium 3.0-0.5 MG/3 ML Neb Soln NEB SCH ×2 (07:25→19:20)
[2021-01-17] MEDS: Acetaminophen 500 MG Tab PO SCH ×3 (07:25→19:19)
[2021-01-17] MEDS: Lisinopril 20 MG Tab PO SCH (07:26)
[2021-01-17] MEDS: Atenolol 50 MG Tab PO SCH (07:31)
[2021-01-17] MEDS: Hydrochlorothiazide 25 MG Tab PO SCH (07:31)
[2021-01-17] MEDS: Cholecalciferol (Vitamin D3) 25 MCG Tab PO SCH (07:31)
[2021-01-17] MEDS: Furosemide 20 MG Tab PO SCH (07:31)
[2021-01-17] MEDS: Finasteride 5 MG Tab PO SCH (07:31)
[2021-01-17] MEDS: Gabapentin 300 MG Cap PO SCH (07:32)
[2021-01-17] MEDS: Potassium Chloride 20 MEQ Tab.ER PO SCH (07:32)
[2021-01-17] MEDS: Polyethylene Glycol 3350 Powder 17 GM Packet PO SCH (07:32)
[2021-01-17 08:08] LABS: CHLORIDE,CL 99 mmol/L (98-107); SODIUM,NA 132 mmol/L (136-145)
--- NOTE | 2021-01-17 12:26 | PCM.SN.2 ---
- Free Text/Narrative Note: Laboratory Results - last 24 hr 01/17/21 01/17/21 Range/Units 07:09 07:09 WBC 11.7 H (4.0-10.2) K/uL RBC 3.38 L (4.33-5.41) M/uL Hgb 10.1 L (13.1-16.8) g/dL Hct 30.3 L (39.0-49.0) % MCV 89.6 (84.0-98.0) fL MCH 29.9 (28.2-33.3) pg MCHC 33.3 (31.7-36.0) g/dL RDW 12.2 (11.2-14.1) % Plt Count 543 H D (150-350) K/uL Neut % (Auto) 66.5 (45.0-80.0) % Lymph % (Auto) 22.4 (10.0-50.0) % [place] % (Auto) 9.9 (2.0-14.0) % Eos % (Auto) 0.9 (0.0-5.0) % Baso % (Auto) 0.3 (0.0-2.0) % Neut # (Auto) 7.77 H (1.40-7.00) K/uL Lymph # (Auto) 2.62 (0.50-3.50) K/uL [place] # (Auto) 1.16 H (0.00-1.00) K/uL Eos # (Auto) 0.11 (0.00-0.50) K/uL Baso # (Auto) 0.03 (0.00-0.20) K/uL Sodium 132 L (136-145) mmol/L Potassium 4.4 (3.5-5.1) mmol/L Chloride 99 (98-107) mmol/L Carbon Dioxide 20.4 L (21.0-32.0) mmol/L BUN 39 H (7-18) mg/dL Creatinine 1.06 (0.51-1.17) mg/dL Est Cr Clr Drug Dosing 67.62 mL/min Estimated GFR (MDRD) > 60 mL/min Glucose 99 (70-99) mg/dL Calcium 9.2 (8.5-10.1) mg/dL Troponin I 0.000 (0.000-0.056) ng/mL NT-Pro-B Natriuret Pep 189 H (0-125) pg/mL Labs reviewed as above with relatively stable blood work as above. Note mild BNP elevation with stable hyponatremia. No chest pain or anginal complaints. Mildly decreased blood pressures. Continue to observe closely.
[2021-01-17] MEDS: Rosuvastatin 10 MG Tab PO SCH (19:20)
[2021-01-17] MEDS: Tamsulosin 0.4 MG Cap.ER PO SCH (19:20)
[2021-01-17] MEDS: Temazepam 15 MG Cap PO PRN (20:31)
[2021-01-18] MEDS: Ibuprofen 600 MG Tab PO PRN ×2 (01:59→12:16)
[2021-01-18] MEDS: Finasteride 5 MG Tab PO SCH (08:08)
[2021-01-18] MEDS: Potassium Chloride 20 MEQ Tab.ER PO SCH (08:08)
[2021-01-18] MEDS: Cholecalciferol (Vitamin D3) 25 MCG Tab PO SCH (08:09)
[2021-01-18] MEDS: Gabapentin 300 MG Cap PO SCH (08:09)
[2021-01-18] MEDS: Hydrochlorothiazide 25 MG Tab PO SCH (08:09)
[2021-01-18] MEDS: Furosemide 20 MG Tab PO SCH (08:09)
[2021-01-18] MEDS: Albuterol/Ipratropium 3.0-0.5 MG/3 ML Neb Soln NEB SCH (08:09)
[2021-01-18] MEDS: Polyethylene Glycol 3350 Powder 17 GM Packet PO SCH (08:10)
[2021-01-18] MEDS: Acetaminophen 500 MG Tab PO SCH (08:11)
[2021-01-18 08:30] VITALS: BP 93/60; PULSE 117
[2021-01-18] MEDS: Lisinopril 20 MG Tab PO SCH (08:39)
[2021-01-18] MEDS: Atenolol 50 MG Tab PO SCH (08:39)
--- NOTE | 2021-01-18 09:18 | PCM.DCSUM1 ---
Discharge Summary - Hospital Course HPI Initial Comments: Pt had a fall while outside 01/04/21 tripping on a leash. Sustained multiple non- surgical pelvic fractures as well as a left olecranon fracture that was surgically pinned. To [facility] on 01/10/21 swing bed for PT/OT. Diagnosis: Stroke: No - Discharge Data Discharge Date: 01/18/21 Discharge Disposition: Home, Self-Care 01 Condition: Good - Referral to Home Health Primary Care Physician: Tamia Saleh PA-C - Discharge Diagnosis/Problem(s) (1) Fracture of left olecranon process SNOMED Code(s): 674471818 ICD Code: S52.022A - DISP FX OF OLECRAN PRO W/O INTARTIC EXTN LEFT ULNA, INIT Status: Acute Priority: High Onset Date: 01/04/21 Problem Details: See above. Required surgical intervention and pinning. Here for PT/OT. Qualifiers: Encounter type: sequela Fracture type: closed Qualified Code(s): S52.022S - Displaced fracture of olecranon process without intraarticular extension of left ulna, sequela (2) Pelvis fracture SNOMED Code(s): 56113573 ICD Code: S32.9XXA - FRACTURE OF UNSP PARTS OF LUMBOSACRAL SPINE AND PELVIS, INIT Status: Acute Priority: High Onset Date: 01/04/21 Problem Details: Here for PT/OT and assistance with ADLs. Tripped over a leash laying on the ground while running after grandson. Fell onto concrete and sustained injury. Walker paperwork notes right superior and inferior pubic rami fractures extending through pubic symphysis with questionable left inferior pubic ramus fracture. No surgical intervention. Using tylenol prn for pain with good control of his pain. Did not like the oxycodone and doesn't feel he needs anything more than his Celebrex and Tylenol at home. Qualifiers: Encounter type: sequela Pelvic bone location: multiple parts Fracture type: closed (3) BPH (benign prostatic hyperplasia) SNOMED Code(s): 221605218 ICD Code: N40.0 - BENIGN PROSTATIC HYPERPLASIA WITHOUT LOWER URINRY TRACT SYMP Status: Chronic Priority: Low Problem Details: Stable at this time per history Qualifiers: Lower urinary tract symptom presence: unspecified whether lower urinary tract symptoms present Qualified Code(s): N40.0 - Benign prostatic hyperplasia without lower urinary tract symptoms (4) COPD (chronic obstructive pulmonary disease) SNOMED Code(s): 34109227 ICD Code: J44.9 - CHRONIC OBSTRUCTIVE PULMONARY DISEASE, UNSPECIFIED Status: Chronic Priority: Medium Problem Details: Chronic. Patient feels that he has is back to his basline following his acute stay and swing bed. Qualifiers: COPD type: emphysema Emphysema type: unspecified Qualified Code(s): J43.9 - Emphysema, unspecified (5) HTN (hypertension) SNOMED Code(s): 97336694 ICD Code: I10 - ESSENTIAL (PRIMARY) HYPERTENSION Status: Chronic Priority: Medium Problem Details: Observe trends while on Swing Bed. Has been somewhat a little lower with his pressures lately. Was started on Lasix 20mg po a few days ago. will discontinue upon discharge home. Follow with home health. Asymptomatic with the pressures. Qualifiers: Hypertension type: essential hypertension Qualified Code(s): I10 - Essential (primary) hypertension (6) Hyperlipidemia SNOMED Code(s): 90397971 ICD Code: E78.5 - HYPERLIPIDEMIA, UNSPECIFIED Status: Chronic Priority: Medium Problem Details: Followed by primary care provider. (7) Osteoarthritis SNOMED Code(s): 616454431 ICD Code: M19.90 - UNSPECIFIED OSTEOARTHRITIS, UNSPECIFIED SITE Status: Chronic Priority: Medium Problem Details: Chronic arthritis with history of inflammatory arthritis. Only complains of surgical site pain today. No other complaints. Will use his Celebrex at home. Qualifiers: Osteoarthritis location: multiple joints (8) Pressure ulcer of coccygeal region, stage 1 SNOMED Code(s): 743723418, 156164992 ICD Code: L89.151 - PRESSURE ULCER OF SACRAL REGION, STAGE 1 Status: Acute Onset Date: ~01/18/21 Problem Details: PT complaining of coxxyx pain. Note area of stage 1 pressure ulcer. Redness without breaks in the skin. Will advise to make sure and move and stay off that area especially when sitting or moving in bed. A donut at home as well for comfort in his wheelchair. - Patient Summary/Data Consults: Consultations 01/10/21 16:11 Consult to Case Management/Neuroscience Specialist [CONS] Routine Consult to Physical Therapy [PT Evaluation and Treatment] [CONS] Routine OT Evaluation and Treatment [CONS] Routine Hospital Course: This patient was admitted into swing bed status here at [facility] following a fall that he had outside when he tripped on the leash injuring his left arm as well as his pelvis. On 01/04/2021 this patient was at home when he tripped outside fell ending up with a complex olecranon fracture of the left forearm as well as multiple pelvic fractures that were nonsurgical. He did have surgical pinning of the olecranon fracture and he was brought to [facility] for swing bed status. He has been working with PT and OT he is advancing well. He is using Tylenol and ibuprofen at this time for pain. He initially was on oxycodone but that did not do much for his pain and he has had better pain control with the Tylenol and the ibuprofen. He is able to ambulate without assistance and he feels quite steady and PT OT have cleared him to discharge reed e. Case management has been working with him and home health will follow him at home. He does have a follow-up in 2 weeks with Ortho and the splint is still in place on his left upper extremity. Today upon discharge it was noticed that he was complain of some pain in his coccyx. He has a stage I pressure ulcer without any skin breakdown. We will discharge him with a donut seat as well as ensure that home health watches this area closely so that it does not advance to any skin breakdown. Follow-up with his primary care provider in a week for long-term management. He denies anything more for pain other than his Tylenol and Celebrex that he has at home. - Patient Instructions Diet: Heart Healthy Diet Other/Special Instructions: Continue your previous therapies at home. Home health to follow as well as PT OT. Watch blood pressures at home. Tylenol and or Celebrex for pain at home. Watch the area on your coxxyx for any further break down. When sitting or lying try to tip yourself off to one side to get the pressure off that area. We will also get you a donut to sit on at home. See your PCP in 1 week for recheck. Keep your follow up with orthopaedics as previously scheduled. - Discharge Plan *PRESCRIPTION DRUG MONITORING PROGRAM REVIEWED*: Not Applicable *COPY OF PRESCRIPTION DRUG MONITORING REPORT IN PATIENT JOSSE: Not Applicable Home Medications: Home Meds Acetaminophen [Tylenol Extra Strength] 1,000 mg PO TID@,,20 03/30/19 [History] Finasteride 5 mg PO DAILY 03/30/19 [History] Fluticasone Propion/Salmeterol [Advair 250-50 Diskus] 1 inh INH Q12HR 03/30/19 [History] Lisinopril/Hydrochlorothiazide [Lisinopril-Hctz 20-25 mg Tab] 1 tab PO DAILY 03/30/19 [History] atenoloL [Atenolol] 50 mg PO DAILY 03/30/19 [History] Albuterol/Ipratropium [DuoNeb 3.0-0.5 MG/3 ML] 3 ml NEB Q12HR PRN 01/10/21 [History] Celecoxib [CeleBREX] 200 mg PO DAILY 01/10/21 [History] Cholecalciferol (Vitamin D3) [Vitamin D3] 2,000 unit PO DAILY 01/10/21 [History] Cyclobenzaprine [Flexeril] 10 mg PO TID@,,01/10/21 [History] Gabapentin [Neurontin] 300 mg PO Q12HR 01/10/21 [History] Rosuvastatin [Crestor] 10 mg PO BEDTIME 01/10/21 [History] Sennosides/Docusate Sodium [Senna-Docusate Sodium Tablet] 1 each PO BEDTIME 01/10/21 [History] Tamsulosin HCl 0.4 mg PO BEDTIME 01/10/21 [History] polyethylene glycoL 3350 [MiraLAX] 17 gm PO DAILY 01/10/21 [History] Albuterol/Ipratropium [DuoNeb 3.0-0.5 MG/3 ML] 3 ml NEB BIDRT neb 01/18/21 [Rx] Albuterol/Ipratropium [DuoNeb 3.0-0.5 MG/3 ML] 3 ml NEB Q6HRRT PRN neb 01/18/21 [Rx] Carboxymethylcellulose/Lytes [Colton-Stir Oral Hamburg] 0 ml MUCMEM ASDIRECTED PRN bottle 01/18/21 [Rx] Docusate Sodium/Sennosides [Senna Plus] 1 tab PO BID PRN tablet 01/18/21 [Rx] Ibuprofen [Motrin] 600 mg PO Q6H PRN tablet 01/18/21 [Rx] Potassium Chloride [Klor-Con M20] 20 meq PO DAILY tab.er 01/18/21 [Rx] Temazepam [Restoril] 15 mg PO BEDTIME PRN cap 01/18/21 [Rx] hydroCHLOROthiazide [Hydrochlorothiazide] 25 mg PO DAILY tablet 01/18/21 [Rx] lisinopriL [Prinivil] 20 mg PO DAILY tablet 01/18/21 [Rx] polyethylene glycoL 3350 [MiraLAX] 17 gm PO DAILY packet 01/18/21 [Rx] - Discharge Summary/Plan Comment DC Time >30 min.: Yes (In reviewing his chart. Planning for discharge on consultation Case managem) - General Info Date of Service: 01/18/21 Admission Dx/Problem (Free Text: Swingbed admission s/p left elbow fracture and pelvis fracture. Subjective Update: Patient feels that he is strong enough and steady enough for him to discharge home. He has been using as needed Tylenol and ibuprofen for pain and it is well tolerated with the pain of 3/10 today. He will be discharged home with home health. He has no other complaints today. Functional Status: Reports: Pain Controlled, Ambulating, Urinating - Review of Systems General: Reports: No Symptoms HEENT: Reports: No Symptoms Pulmonary: Reports: No Symptoms Cardiovascular: Reports: No Symptoms Gastrointestinal: Reports: No Symptoms Genitourinary: Reports: No Symptoms Musculoskeletal: Reports: Arm Pain (Left arm with some movement but still improving) Skin: Reports: No Symptoms Neurological: Reports: No Symptoms Psychiatric: Reports: No Symptoms - Patient Data Vitals - Most Recent: Last Vital Signs Temp 97.5 F 01/18/21 08:00 Pulse 117 H 01/18/21 08:00 Resp 17 01/18/21 08:00 BP 93/60 01/18/21 08:00 Pulse Ox 96 01/18/21 08:00 Weight - Most Recent: 151 lb 11.2 oz I&O - Last 24 hours: Intake & Output 01/17/21 01/18/21 01/18/21 22:59 06:59 14:59 Intake Total 600 960 Output Total 280 780 Balance -280 -180 960 Med Orders - Current: Current Medications Acetaminophen (Acetaminophen 500 Mg Tab) 1,000 mg PO TID@08,, [facility] Stop: 01/24/21 14:01 Last Admin: 01/18/21 08:11 Dose: 1,000 mg Documented by: Albuterol/Ipratropium (Albuterol/Ipratropium 3.0-0.5 Mg/3 Ml Neb Soln) 3 ml NEB BIDRT [facility] Last Admin: 01/18/21 08:09 Dose: 3 ml Documented by: Albuterol/Ipratropium (Albuterol/Ipratropium 3.0-0.5 Mg/3 Ml Neb Soln) 3 ml NEB Q6HRRT PRN PRN Reason: Shortness of Breath Atenolol (Atenolol 50 Mg Tab) 50 mg PO DAILY [facility] Last Admin: 01/18/21 08:39 Dose: Not Given Documented by: Cholecalciferol (Cholecalciferol (Vitamin D3) 25 Mcg Tab) 50 mcg PO DAILY [facility] Last Admin: 01/18/21 08:09 Dose: 50 mcg Documented by: Cyclobenzaprine HCl (Cyclobenzaprine 10 Mg Tab) 10 mg PO Q8H PRN PRN Reason: Muscle Spasm Last Admin: 01/17/21 03:44 Dose: 10 mg Documented by: Finasteride (Finasteride 5 Mg Tab) 5 mg PO DAILY [facility] Last Admin: 01/18/21 08:08 Dose: 5 mg Documented by: Furosemide (Furosemide 20 Mg Tab) 20 mg PO DAILY [facility] Last Admin: 01/18/21 08:09 Dose: 20 mg Documented by: Gabapentin (Gabapentin 300 Mg Cap) 300 mg PO QAM [facility] Last Admin: 01/18/21 08:09 Dose: 300 mg Documented by: Hydrochlorothiazide (Hydrochlorothiazide 25 Mg Tab) 25 mg PO DAILY [facility] Last Admin: 01/18/21 08:09 Dose: 25 mg Documented by: Ibuprofen (Ibuprofen 600 Mg Tab) 600 mg PO Q6H PRN PRN Reason: Pain (severe 7-10) Last Admin: 01/18/21 01:59 Dose: 600 mg Documented by: Lisinopril (Lisinopril 20 Mg Tab) 20 mg PO DAILY [facility] Last Admin: 01/18/21 08:39 Dose: Not Given Documented by: Loperamide HCl (Loperamide 2 Mg Tab) 4 mg PO DAILY PRN PRN Reason: Diarrhea Last Admin: 01/13/21 08:43 Dose: 4 mg Documented by: Loperamide HCl (Loperamide 2 Mg Tab) 0 mg PO ASDIRECTED PRN PRN Reason: Diarrhea Polyethylene Glycol (Polyethylene Glycol 3350 Powder 17 Gm Packet) 17 gm PO DAILY [facility] Stop: 01/20/21 08:01 Last Admin: 01/18/21 08:10 Dose: Not Given Documented by: Potassium Chloride (Potassium Chloride 20 Meq Tab.Er) 20 meq PO DAILY [facility] Last Admin: 01/18/21 08:08 Dose: 20 meq Documented by: Rosuvastatin Calcium (Rosuvastatin 10 Mg Tab) 10 mg PO BEDTIME [facility] Last Admin: 01/17/21 19:20 Dose: 10 mg Documented by: Saliva Substitute (Saliva Substitute Oral Hamburg 120 Ml Bottle) 0 ml MUCMEM ASDIRECTED PRN PRN Reason: Dry Mouth Last Admin: 01/12/21 12:00 Dose: 1 spray Documented by: Senna/Docusate Sodium (Docusate Sodium/Sennosides 50-8.6 Mg Tab) 1 tab PO BID PRN PRN Reason: Constipation Tamsulosin HCl (Tamsulosin 0.4 Mg Cap.Er) 0.4 mg PO BEDTIME [facility] Last Admin: 01/17/21 19:20 Dose: 0.4 mg Documented by: Temazepam (Temazepam 15 Mg Cap) 15 mg PO BEDTIME PRN PRN Reason: Insomnia Last Admin: 01/17/21 20:31 Dose: 15 mg Documented by: Discontinued Medications Celecoxib (Celecoxib 100 Mg Cap) 200 mg PO DAILY [facility] Last Admin: 01/15/21 07:58 Dose: 200 mg Documented by: Cyclobenzaprine HCl (Cyclobenzaprine 10 Mg Tab) 10 mg PO TID@08,14,20 [facility] Stop: 01/24/21 14:01 Last Admin: 01/12/21 14:21 Dose: 10 mg Documented by: Furosemide (Furosemide 20 Mg Tab) 20 mg PO DAILY [facility] Last Admin: 01/15/21 13:30 Dose: Not Given Documented by: Gabapentin (Gabapentin 300 Mg Cap) 300 mg PO Q12HR [facility] Last Admin: 01/12/21 07:58 Dose: 300 mg Documented by: Oxycodone HCl (Oxycodone 5 Mg Tab) 5 mg PO Q4HR PRN PRN Reason: Pain (moderate 4-6) Stop: 01/15/21 23:59 Last Admin: 01/15/21 23:44 Dose: 5 mg Documented by: Potassium Chloride (Potassium Chloride 20 Meq Tab.Er) 20 meq PO DAILY [facility] Last Admin: 01/15/21 13:30 Dose: Not Given Documented by: Senna/Docusate Sodium (Docusate Sodium/Sennosides 50-8.6 Mg Tab) 1 tab PO BEDTIME [facility] Stop: 01/19/21 20:01 Last Admin: 01/14/21 19:11 Dose: Not Given Documented by: - Exam Quality Assessment: Reports: Skin Breakdown (He does have a stage I pressure ulcer on the cephalad aspects of his coccyx) General: Reports: Alert, Oriented HEENT: Reports: Pupils Equal, Pupils Reactive, EOMI, Mucous Membr. Moist/[place] Neck: Reports: Supple Lungs: Reports: Clear to Auscultation, Normal Respiratory Effort Cardiovascular: Reports: Regular Rate, Regular Rhythm GI/Abdominal Exam: Normal Bowel Sounds, Soft, Non-Tender, No Distention (Male) Exam: Deferred Rectal (Males) Exam: Deferred Back Exam: Reports: Normal Inspection, Full Range of Motion Extremities: Normal Inspection, Normal Range of Motion, Normal Capillary Refill Skin: Reports: Warm, Dry, Intact Neurological: Reports: No New Focal Deficit Psy/Mental Status: Reports: Alert, Normal Affect, Normal Mood
== END 2021-01-18 12:20 | disposition home or self-care (01) | DRG 560 ==
LOC: LL.MS 10:24 → UNDOADMIN 10:24 → LL.MS 14:00
PROVIDERS: ADMIT Emergency Medicine; ATTEND Family Medicine
DX: S52.022D Displaced fracture of olecranon process without intraarticular extension of left ulna, subsequent encounter for closed fracture with routine healing (principal); E87.1 Hypo-osmolality and hyponatremia; S32.591D Other specified fracture of right pubis, subsequent encounter for fracture with routine healing; N40.0 Benign prostatic hyperplasia without lower urinary tract symptoms; J43.9 Emphysema, unspecified; E78.5 Hyperlipidemia, unspecified; M19.90 Unspecified osteoarthritis, unspecified site; L89.151 Pressure ulcer of sacral region, stage 1; E78.00 Pure hypercholesterolemia, unspecified; H91.90 Unspecified hearing loss, unspecified ear; H54.7 Unspecified visual loss; F17.210 Nicotine dependence, cigarettes, uncomplicated; Z79.899 Other long term (current) drug therapy; Z87.39 Personal history of other diseases of the musculoskeletal system and connective tissue; I11.0 Hypertensive heart disease with heart failure; I50.9 Heart failure, unspecified
CPT/HCPCS: 36415; 71045; 80048; 80053; 82962; 83735; 83880; 84484; 85025; 94640; 97110-GP; 97129-GO; 97130-GO; 97161-GP; 97165-GO; 97530-GO; 97530-GP; 97535-GO; A9270-GY; J7620-GY

== ENCOUNTER 2021-12-08 21:32 | Observation (INO) | payer OTHER, MEDICARE ==
[2021-12-08 22:34] LABS: ANION GAP 19.9 meq/L (7-15); CHLORIDE,CL 98 mmol/L (98-107); SODIUM,NA 129 mmol/L (136-145)
[2021-12-08] MEDS: Sodium Chloride 0.9% 1,000 ML IV ONE (23:27)
[2021-12-08] MEDS: Thiamine 100 MG in Sodium Chloride 0.9% 100 ML IV ONE (23:27)
[2021-12-08] MEDS: fentaNYL 100 MCG/2 ML SDV ONE (23:45)
[2021-12-09] MEDS: Bupivacaine 0.5% 10 ML SDV INJECT ONE (00:22)
[2021-12-09] MEDS ORDERED: Ondansetron 4 MG/2 ML SDV IVPUSH PRN (01:04)
[2021-12-09] MEDS ORDERED: Albuterol/Ipratropium 3.0-0.5 MG/3 ML Neb Soln NEB PRN (01:04)
[2021-12-09] MEDS: oxyCODONE 5 MG Tab PO PRN (01:29)
[2021-12-09] MEDS: Nicotine 21 MG/24 Hr Patch TRDERM ONE (01:30)
[2021-12-09] MEDS: Sodium Chloride 0.9% 1,000 ML IV ONE (03:22)
[2021-12-09] MEDS: Acetaminophen 650 MG Tab.ER PO PRN (03:43)
[2021-12-09 08:47] LABS: BARBITURATE SCREEN,URINE NEGATIVE (NEGATIVE); BENZODIAZEPINES SCREEN,URINE NEGATIVE (NEGATIVE); BUPRENORPHINE SCREEN,URINE NEGATIVE (NEGATIVE); EDDP,URINE SCREEN NEGATIVE (NEGATIVE); TCA SCREEN,URINE NEGATIVE (NEGATIVE); THC SCREEN,URINE 50 NG/ML NEGATIVE (NEGATIVE)
[2021-12-09] MEDS: Lisinopril 20 MG Tab PO SCH (08:56)
[2021-12-09] MEDS: Celecoxib 100 MG Cap PO SCH (08:56)
[2021-12-09] MEDS: Cholecalciferol (Vitamin D3) 25 MCG Tab PO SCH (08:57)
[2021-12-09] MEDS: Gabapentin 300 MG Cap PO SCH (08:58)
[2021-12-09] MEDS: Finasteride 5 MG Tab PO SCH (08:59)
[2021-12-09] MEDS: Hydrochlorothiazide 25 MG Tab PO SCH (08:59)
[2021-12-09] MEDS: Atenolol 50 MG Tab PO SCH (08:59)
[2021-12-09 11:21] VITALS: BP 136/68; PULSE 99
[2021-12-09 12:28] LABS: ANION GAP 16.2 meq/L (7-15)
[2021-12-09] MEDS: Iopamidol 612 MG/ML 100 ML Bottle IVPUSH ONE (13:10)
[2021-12-09] MEDS: Sodium Chloride 0.9% 250 ML IV SCH (14:02)
[2021-12-09] MEDS: Bacitracin Oint 1 GM U/D Packet TOP ONE (15:08)
[2021-12-09] MEDS ORDERED: Rosuvastatin 10 MG Tab PO SCH (20:00)
[2021-12-09] MEDS ORDERED: Tamsulosin 0.4 MG Cap.ER PO SCH (20:00)
[2021-12-10] MEDS ORDERED: Omeprazole 20 MG Cap.CR PO SCH (07:30)
== END 2021-12-09 16:00 | disposition home or self-care (01) ==
LOC: LL.ED 21:32 → LL.MS 12-09 00:18
PROVIDERS: ADMIT Emergency Medicine; ATTEND Emergency Medicine
DX: S52.502A Unspecified fracture of the lower end of left radius, initial encounter for closed fracture (principal); T07.XXXA Unspecified multiple injuries, initial encounter; E83.42 Hypomagnesemia; R63.4 Abnormal weight loss; R78.0 Finding of alcohol in blood; J44.9 Chronic obstructive pulmonary disease, unspecified; K21.9 Gastro-esophageal reflux disease without esophagitis; F17.210 Nicotine dependence, cigarettes, uncomplicated; N40.0 Benign prostatic hyperplasia without lower urinary tract symptoms; I10 Essential (primary) hypertension; E78.00 Pure hypercholesterolemia, unspecified; M19.90 Unspecified osteoarthritis, unspecified site; Z79.51 Long term (current) use of inhaled steroids; Y90.6 Blood alcohol level of 120-199 mg/100 ml; Z79.899 Other long term (current) drug therapy; V89.2XXA Person injured in unspecified motor-vehicle accident, traffic, initial encounter; Z79.1 Long term (current) use of non-steroidal anti-inflammatories (NSAID); Z68.21 Body mass index [BMI] 21.0-21.9, adult
CPT/HCPCS: 36415; 70450; 71101-LT; 71260; 72040; 73090-LT; 73100-LT; 73110-LT; 73120-RT; 73590-LT; 74177; 80053; 80305-QW; 80307; 81003; 83605; 83735; 83880; 85025; 85610; 93005; 96365; 96366; 96367; 99285-25; A9270-GY; G0378; J3010; J3411; J3475; J3490; J7030; J7050; Q9967

== ENCOUNTER 2024-04-05 13:22 | Emergency (ER) | payer MEDICARE, OTHER ==
[2024-04-05] MEDS: oxyCODONE 5 MG Tab PO ONE ×2 (13:57→16:15)
[2024-04-05] MEDS: cloNIDine 0.1 MG Tab PO ONE (16:15)
[2024-04-05 16:55] VITALS: PULSE 72
[2024-04-05 17:41] VITALS: BP 161/74
== END 2024-04-05 18:10 | disposition home or self-care (01) ==
LOC: LL.ED 13:22
DX: R07.81 Pleurodynia (principal); I10 Essential (primary) hypertension; E78.00 Pure hypercholesterolemia, unspecified; J44.9 Chronic obstructive pulmonary disease, unspecified; K21.9 Gastro-esophageal reflux disease without esophagitis; F17.210 Nicotine dependence, cigarettes, uncomplicated; Z79.01 Long term (current) use of anticoagulants; Z79.899 Other long term (current) drug therapy; Z88.8 Allergy status to other drugs, medicaments and biological substances; W18.12XA Fall from or off toilet with subsequent striking against object, initial encounter; Y92.002 Bathroom of unspecified non-institutional (private) residence as the place of occurrence of the external cause
CPT/HCPCS: 70450; 71111; 99284; A9270-GY